=== PATIENT | male | born 1940 ===

== ENCOUNTER 2017-03-19 20:51 | Inpatient (IN) | payer MEDICARE, MEDICAID ==
[2017-03-19] MEDS ORDERED: Sodium Chloride 0.9% 1,000 ML IV STA ×2 (21:10→22:48)
--- NOTE | 2017-03-19 21:11 | ED PDOC ---
HPI: General Adult Time Seen by Provider: 03/19/17 20:59 Chief Complaint (Nursing): Lower Extremity Problem/Injury Chief Complaint (Provider): foot pain History Per: Patient, EMS Additional Complaint(s): 76-year-old male presents via ambulance for evaluation of bilateral foot pain 3 days. Patient noticed redness and swelling to right foot in particular 2 days ago. He is unaware of any fever or chills. Patient denies any chest pain, shortness of breath or dyspnea on exertion. Past Medical History Reviewed: Historical Data, Nursing Documentation, Vital Signs Vital Signs: Last Vital Signs Temp 100.8 F H 03/19/17 20:52 Pulse 78 03/19/17 20:52 Resp 16 03/19/17 20:52 BP 150/69 03/19/17 20:52 Pulse Ox 97 03/19/17 23:29 - Medical History PMH: Asthma, Atrial Fibrillation, Back Problems, CAD, CHF, COPD, HTN - Surgical History Other surgeries: partial finger amputation right hand - Family History Family History: States: No Known Family Hx - Living Arrangements Living Arrangements: With Family - Social History Current smoker - smoking cessation education provided: No Alcohol: Social Drugs: Denies - Home Medications Home Medications: Ambulatory Orders Medication Instructions Recorded Albuterol HFA [Ventolin HFA 90 2 puff IH [id number] PRN #0 puff 02/28/16 mcg/actuation (8 g)] Methylprednisolone [Medrol Dose 4 mg PO DAILY #21 mg 02/28/16 Pack (21 tabs)] - Allergies Allergies/Adverse Reactions: Allergies Allergy/AdvReac Type Severity Reaction Status Date / Time No Known Allergies Allergy Verified 02/27/16 19:20 Review of Systems ROS Statement: Except As Marked, All Systems Reviewed And Found Negative Constitutional: Negative for: Fever, Chills Cardiovascular: Negative for: Chest Pain Respiratory: Negative for: Cough Gastrointestinal: Negative for: Nausea, Vomiting Musculoskeletal: Positive for: Foot Pain Neurological: Negative for: Headache, Dizziness Physical Exam - Reviewed Nursing Documentation Reviewed: Yes Vital Signs Reviewed: Yes - Physical Exam Appears: Positive for: Well, Non-toxic, No Acute Distress Skin: Negative for: Pallor, Rash Eye Exam: Positive for: Normal appearance, EOMI, PERRL Cardiovascular/Chest: Positive for: Regular Rate, Rhythm Respiratory: Positive for: Normal Breath Sounds. Negative for: Wheezing, Respiratory Distress Extremity: Positive for: Other (Cellulitis noted to dorsal aspect of the right foot, minimal tenderness to palpation, no pedal edema noted bilaterally, no calf swelling or tenderness bilaterally, slight warmth and erythema noted to left foot as well.). Negative for: Calf Tenderness Neurologic/Psych: Positive for: Alert, Oriented - Laboratory Results Result Diagrams: 03/19/17 22:07 03/19/17 22:07 - ECG Interpretation Of ECG: A. fib at 67 bpm, reviewed by PA and ED attending. O2 Sat by Pulse Oximetry: 97 Pulse Ox Interpretation: Normal - Other Rad CXR X-Ray: Interpreted by Me, Viewed By Me X-Ray Interpretation: no acute finding, no interval change Medical Decision Making Medical Decision Makin76 year old with foot pain. Temp upon arrival is 100.8 Plan: CBC CMP Blood culture VBG with lactate CXR EKG UA UDS BAL IVF PO motrin and tylenol K is low at 3.1, 40 meq oral ordered. Lactate 2.8, WBC 11.0, Temp 100.8, source of infection: right foot cellulitis. Patient meets sepsis criteria. Case was d/w Dr. Bates who agrees with admission. Call placed to [facility] [employer] [facility] consultant, Dr. Aguilar who will admit patient. Patient is aware of and agrees with admission. IV vancomycin and Zosyn started in ED. Disposition - Clinical Impression Clinical Impression: Cellulitis of foot, Sepsis - Disposition Disposition Time: 23:40 Condition: FAIR - Pt Status Changed To: Hospital Disposition Of: Inpatient - Admit Certification Admit to Inpatient:: After my assessment, the patient will require hospitalization for at least two midnights. This is because of the severity of symptoms shown, intensity of services needed, and/or the medical risk in this patient being treated as an outpatient. - POA Present On Arrival: None Results - Lab Results Lab Results: 03/19/17 03/19/17 03/19/17 22:07 22:07 22:05 WBC 11.0 H D RBC 4.15 L Hgb 13.0 Hct 39.7 MCV 95.7 H MCH 31.4 H MCHC 32.8 L RDW 13.7 Plt Count 153 MPV 9.6 Neut % (Auto) 86.3 H Lymph % (Auto) 4.9 L [place] % (Auto) 8.2 Eos % (Auto) 0.0 Baso % (Auto) 0.6 Neut # 9.5 H Lymph # 0.5 L [place] # 0.9 H Eos # 0.0 Baso # 0.1 Neutrophils % (Manual) 87 H Lymphocytes % (Manual) 5 L Monocytes % (Manual) 7 Basophils % (Manual) 1 Platelet Estimate Normal Polychromasia Slight Ovalocytes Slight pO2 60 H VBG pH 7.21 L VBG pCO2 53 VBG HCO3 19.0 VBG Total CO2 22.8 VBG O2 Sat (Calc) 91.8 H VBG Base Excess -7.1 L VBG Potassium > 20.0 H* Sodium 137 126.0 L Chloride 104 98.0 Glucose 191 H Lactate 2.8 H FiO2 21.0 Crit Value Called To Bhargav price Crit Value Called By Rt Crit Value Read Back Y Blood Gas Notified Time 2212 Potassium 3.1 L Carbon Dioxide 20 L Anion Gap 16 BUN 18 Creatinine 1.3 Est GFR ( Amer) > 60 Est GFR (Non-Af Amer) 54 Random Glucose 201 H Calcium 8.8 Total Bilirubin 1.2 AST 26 ALT 29 Alkaline Phosphatase 72 Troponin I 0.0400 NT-Pro-B Natriuret Pep 2680 H Total Protein 6.8 Albumin 3.8 Globulin 3.0 Albumin/Globulin Ratio 1.3 Venous Blood Potassium > 20.0 H* Alcohol, Quantitative < 10
[2017-03-19 22:10] LABS: BASO # 0.1 K/uL (0.0-0.2); BASO % 0.6 % (0.0-2.0); LYMPH # 0.5 K/uL (1.0-4.3); LYMPH % 4.9 % (20.0-40.0); MEAN CELL VOLUME 95.7 fl (80.0-94.0); MEAN CORPUSCULAR HEMOGLOBIN 31.4 pg (27.0-31.0); MEAN CORPUSCULAR HGB CONC 32.8 g/dL (33.0-37.0); MEAN PLATELET VOLUME 9.6 fl (7.2-11.7); MONO # 0.9 K/uL (0.0-0.8); MONO % 8.2 % (0.0-10.0); NEUT # 9.5 K/uL (1.8-7.0); NEUT % 86.3 % (50.0-75.0); PLATELET COUNT 153 K/uL (130-400); RBC 4.15 Mil/uL (4.40-5.90); RED CELL DISTRIBUTION WIDTH 13.7 % (11.5-14.5)
[2017-03-19 22:13] LABS: VENOUS BLOOD GAS BASE EXCESS -7.1 mmol/L (0.0-2.0); VENOUS BLOOD GAS PCO2 53 mmHg (40-60); VENOUS BLOOD GAS PO2 60 mm/Hg (30-55); VENOUS BLOOD PH 7.21 (7.32-7.43)
[2017-03-19 22:23] LABS: ALB/GLOB RATIO 1.3 (1.0-2.1); ALBUMIN 3.8 g/dL (3.5-5.0); ALT/SGPT 29 U/L (21-72); AST/SGOT 26 U/L (17-59); BLOOD UREA NITROGEN 18 mg/dl (9-20); CALCIUM 8.8 mg/dL (8.4-10.2); GFR AFRICAN-AMERICAN > 60; GFR NON-AFRICAN AMERICAN 54
[2017-03-19 22:34] LABS: B-TYPE NATRIURETIC PEPTIDE 2680 pg/ml (0-900)
[2017-03-19] MEDS ORDERED: Piperacillin/Tazobact 3.375 GM in Sodium Chloride 0.9% 100 ML IVPB STA (23:23)
[2017-03-19] MEDS ORDERED: Piperacillin/Tazobact 3.375 gm Inj IVPB ONE (23:26)
[2017-03-19] MEDS ORDERED: Vancomycin 1 g Inj ONE (23:27)
[2017-03-19 23:32] LABS: BASOPHIL 1 % (0-2); LYMPHOCYTE 5 % (20-50); MONOCYTE 7 % (0-10); NEUTROPHIL 87 % (42-75); TOTAL CELLS COUNTED 100
[2017-03-19 23:38] LABS: PLATELET ESTIMATE NORMAL (NORMAL)
[2017-03-19 23:40] LABS: OVALOCYTES SLIGHT; POLYCHROMIC SLIGHT
[2017-03-19] MEDS ORDERED: Potassium Chloride 20 mEq ER Tab PO STA (23:42)
[2017-03-19] MEDS ORDERED: Potassium Chloride 20 mEq ER Tab PO ONE (23:50)
[2017-03-20 03:34] LABS: VENOUS BLOOD GAS BASE EXCESS 2.6 mmol/L (0.0-2.0); VENOUS BLOOD GAS PCO2 41 mmHg (40-60); VENOUS BLOOD GAS PO2 68 mm/Hg (30-55); VENOUS BLOOD PH 7.43 (7.32-7.43)
[2017-03-20] MEDS ORDERED: Albuterol-Ipratrop 3 mg / 0.5 (3 ml) UD INH PRN (07:04)
[2017-03-20] MEDS: Sodium Chloride 0.9% 1,000 ML IV SCH ×2 (07:16→21:54)
--- NOTE | 2017-03-20 08:18 | RAD ---
HISTORY: clearance COMPARISON: No prior. FINDINGS: LUNGS: No active pulmonary disease. PLEURA: No significant pleural effusion identified, no pneumothorax apparent. CARDIOVASCULAR: Normal. Atherosclerotic aorta. OSSEOUS STRUCTURES: No significant abnormalities. VISUALIZED UPPER ABDOMEN: Normal. OTHER FINDINGS: None. IMPRESSION: No active disease.
[2017-03-20] MEDS ORDERED: Patient's Own Med (Methylprednisolone [Medrol Dose Pack (21 Tabs)] 4 MG) PO SCH (09:00)
[2017-03-20] MEDS ORDERED: Potassium Chloride 20 mEq ER Tab PO ONE (09:00)
[2017-03-20] MEDS: Piperacill/Tazo 3.375gm in Dex 3.375 GM/50 ML BAG IVPB SCH (09:00)
[2017-03-20] MEDS ORDERED: Pneumococcal 23-Valent Vaccine IM ONE (09:00)
--- NOTE | 2017-03-20 09:40 | CP.PCM.CON ---
History of Present Illness - History of Present Illness History of Present Illness: 76 y/o male admitted with cellulitis of both feet x 3 days Cardiology consult called for Hx of Atrial Fibrillation pt is on home meds but doesn't know what EKG: Atrial Fibrillation HR dropped to 30's but returned to 60's ? secondary to meds at home?? Troponin: neg BNP: 2680 Past Patient History - Infectious Disease Hx of Infectious Diseases: None - Past Medical History & Family History Past Medical History?: Yes - Past Social History Smoking Status: Light Smoker < 10 Cigarettes Daily - CARDIAC Hx Atrial Fibrillation: Yes Hx Congestive Heart Failure: Yes Hx Hypertension: Yes - PULMONARY Hx Asthma: Yes Hx Chronic Obstructive Pulmonary Disease (COPD): Yes - NEUROLOGICAL Hx Neurological Disorder: No - HEENT Hx HEENT Problems: No - RENAL Hx Chronic Kidney Disease: No - ENDOCRINE/METABOLIC Hx Diabetes Mellitus Type 2: Yes - HEMATOLOGICAL/ONCOLOGICAL Hx Blood Disorders: No Hx AIDS: No Hx Human Immunodeficiency Virus (HIV): No - INTEGUMENTARY Hx Dermatological Problems: No - MUSCULOSKELETAL/RHEUMATOLOGICAL Hx Musculoskeletal Disorders: No Hx Falls: No - GASTROINTESTINAL Hx Gastrointestinal Disorders: No - GENITOURINARY/GYNECOLOGICAL Hx Genitourinary Disorders: No - PSYCHIATRIC Hx Substance Use: Yes - SURGICAL HISTORY Hx Surgeries: Yes Other/Comment: 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, 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 - ANESTHESIA Hx Anesthesia: Yes Hx Anesthesia Reactions: No Hx Malignant Hyperthermia: No Has any member of the family had a problem w/ anesthesia?: No Meds Allergies/Adverse Reactions: Allergies Allergy/AdvReac Type Severity Reaction Status Date / Time No Known Allergies Allergy Verified 02/27/16 19:20 - Medications Medications: Current Medications Albuterol (Ventolin Hfa 90 Mcg/Actuation (8 G)) 2 puff IH RQ6 PRN PRN Reason: Cough Albuterol/Ipratropium (Duoneb 3 Mg/0.5 Mg (3 Ml) Ud) 3 ml INH RQ4 PRN PRN Reason: Shortness of Breath Enoxaparin Sodium (Lovenox) 40 mg SC DAILY [facility] PRN Reason: Protocol Home Med (Methylprednisolone [Medrol Dose Pack (21 Tabs)]) 4 mg PO DAILY [facility] Sodium Chloride (Sodium Chloride 0.9%) 1,000 mls @ 66 mls/hr IV .[id number] [facility] Stop: 03/21/17 07:08 Last Admin: 03/20/17 07:16 Dose: 66 mls/hr Vancomycin HCl 1 gm/ Sodium (Chloride) 250 mls @ 166.667 mls/hr IVPB Q12 [facility] Piperacillin Sod/Tazobactam Sod (Zosyn 3.375 Gm Iv Premix) 3.375 gm in 50 mls @ 50 mls/hr IVPB Q8 [facility] Physical Exam - Head Exam Head Exam: NORMAL INSPECTION - Eye Exam Eye Exam: Normal appearance Pupil Exam: NORMAL ACCOMODATION - ENT Exam ENT Exam: Normal Exam - Neck Exam Neck exam: Positive for: Normal Inspection - Respiratory Exam Respiratory Exam: NORMAL BREATHING PATTERN - Cardiovascular Exam Cardiovascular Exam: Irregular Rhythm Results - Vital Signs Recent Vital Signs: Last Vital Signs Temp 97.4 F L 03/20/17 08:08 Pulse 59 L 03/20/17 08:08 Resp 18 03/20/17 08:08 BP 97/58 L 03/20/17 08:08 Pulse Ox 98 03/20/17 08:08 - Labs Result Diagrams: 03/20/17 09:00 03/20/17 09:00 Labs: Laboratory Results - last 24 hr 03/20/17 03/20/17 03/20/17 01:38 03:32 05:49 pO2 68 H VBG pH 7.43 VBG pCO2 41 VBG HCO3 26.9 VBG Total CO2 28.5 H VBG O2 Sat (Calc) 95.9 H VBG Base Excess 2.6 H VBG Potassium 3.5 L Sodium 138.0 Chloride 104.0 Glucose 131 H Lactate 1.0 FiO2 21.0 POC Glucose (mg/dL) 134 H 134 H Venous Blood Potassium 3.5 L Assessment & Plan (1) Atrial fibrillation Assessment and Plan: Pt's HR appears to be controlled will continue to observe Status: Acute (2) Chronic atrial fibrillation Status: Acute
[2017-03-20 09:55] LABS: BASO % 0.5 % (0.0-2.0); EOS % 0.3 % (0.0-4.0); HEMOGLOBIN 12.6 g/dL (12.0-18.0); LYMPH # 1.6 K/uL (1.0-4.3); LYMPH % 19.1 % (20.0-40.0); MEAN CELL VOLUME 95.6 fl (80.0-94.0); MEAN CORPUSCULAR HEMOGLOBIN 31.7 pg (27.0-31.0); MEAN CORPUSCULAR HGB CONC 33.1 g/dL (33.0-37.0); MEAN PLATELET VOLUME 9.8 fl (7.2-11.7); MONO % 11.6 % (0.0-10.0); NEUT # 5.7 K/uL (1.8-7.0); NEUT % 68.5 % (50.0-75.0); RBC 3.96 Mil/uL (4.40-5.90); RED CELL DISTRIBUTION WIDTH 13.2 % (11.5-14.5); WHITE BLOOD COUNT 8.3 K/uL (4.8-10.8)
[2017-03-20 09:56] LABS: ALBUMIN 3.1 g/dL (3.5-5.0)
[2017-03-20 09:59] LABS: ALB/GLOB RATIO 0.9 (1.0-2.1)
[2017-03-20 10:00] LABS: CALCIUM 8.8 mg/dL (8.4-10.2)
[2017-03-20] MEDS: Enoxaparin 40 mg Syringe SC SCH (10:00)
--- NOTE | 2017-03-20 10:26 | CP.PCM.CON ---
History of Present Illness - History of Present Illness History of Present Illness: 76 year old male patient PMHx asthma, afib, CAD, CHF, COPD, HTN seen at bedside for b/l foot cellulitis + pain. Patient states his feet have been painful for the past 3 days. Patient states that he feels a burning sensation to both leg and uncomfortable swelling in his legs as well, R>L. Patient denies N/V/F/D/C/ SOB/CP. No other pedal complaints at this time. PMH: asthma, afib, back problems, CAD, CHF, COPD, HTN, hepatitis PSH: Partial finger amputations right hand x3 Meds: see meds list FH: unknown SH: etoh, +tobacco Review of Systems - Review of Systems All systems: reviewed and no additional remarkable complaints except (as per HPI ) Past Patient History - Infectious Disease Hx of Infectious Diseases: None - Past Medical History & Family History Past Medical History?: Yes - Past Social History Smoking Status: Light Smoker < 10 Cigarettes Daily - CARDIAC Hx Atrial Fibrillation: Yes Hx Congestive Heart Failure: Yes Hx Hypertension: Yes - PULMONARY Hx Asthma: Yes Hx Chronic Obstructive Pulmonary Disease (COPD): Yes - NEUROLOGICAL Hx Neurological Disorder: No - HEENT Hx HEENT Problems: No - RENAL Hx Chronic Kidney Disease: No - ENDOCRINE/METABOLIC Hx Diabetes Mellitus Type 2: Yes - HEMATOLOGICAL/ONCOLOGICAL Hx Blood Disorders: No Hx AIDS: No Hx Human Immunodeficiency Virus (HIV): No - INTEGUMENTARY Hx Dermatological Problems: No - MUSCULOSKELETAL/RHEUMATOLOGICAL Hx Musculoskeletal Disorders: No Hx Falls: No - GASTROINTESTINAL Hx Gastrointestinal Disorders: No - GENITOURINARY/GYNECOLOGICAL Hx Genitourinary Disorders: No - PSYCHIATRIC Hx Substance Use: Yes - SURGICAL HISTORY Hx Surgeries: Yes Other/Comment: 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, 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 - ANESTHESIA Hx Anesthesia: Yes Hx Anesthesia Reactions: No Hx Malignant Hyperthermia: No Has any member of the family had a problem w/ anesthesia?: No Meds Allergies/Adverse Reactions: Allergies Allergy/AdvReac Type Severity Reaction Status Date / Time No Known Allergies Allergy Verified 02/27/16 19:20 - Medications Medications: Current Medications Albuterol (Ventolin Hfa 90 Mcg/Actuation (8 G)) 2 puff IH RQ6 PRN PRN Reason: Cough Albuterol/Ipratropium (Duoneb 3 Mg/0.5 Mg (3 Ml) Ud) 3 ml INH RQ4 PRN PRN Reason: Shortness of Breath Enoxaparin Sodium (Lovenox) 40 mg SC DAILY [facility] PRN Reason: Protocol Home Med (Methylprednisolone [Medrol Dose Pack (21 Tabs)]) 4 mg PO DAILY [facility] Sodium Chloride (Sodium Chloride 0.9%) 1,000 mls @ 66 mls/hr IV .[id number] [facility] Stop: 03/21/17 07:08 Last Admin: 03/20/17 07:16 Dose: 66 mls/hr Vancomycin HCl 1 gm/ Sodium (Chloride) 250 mls @ 166.667 mls/hr IVPB Q12 [facility] Last Admin: 03/20/17 09:00 Dose: 166.667 mls/hr Piperacillin Sod/Tazobactam Sod (Zosyn 3.375 Gm Iv Premix) 3.375 gm in 50 mls @ 50 mls/hr IVPB Q8 [facility] Last Admin: 03/20/17 09:00 Dose: 50 mls/hr Physical Exam - Constitutional Appears: Well, Non-toxic, No Acute Distress - Extremities Exam Additional comments: Vasc: DP and PT pulses palpable. CFT <3 seconds to all digits. TG warm to warm. Edema noted to lower leg, R>L Neuro: Gross sensation diminished Derm: Erythema noted to b/l lower extremity. Ortho: Pain on palpation noted to b/l foot - Neurological Exam Neurological exam: Alert, Oriented x3 - Psychiatric Exam Psychiatric exam: Normal Affect, Normal Mood Results - Vital Signs Recent Vital Signs: Last Vital Signs Temp 97.4 F L 03/20/17 08:08 Pulse 59 L 03/20/17 08:08 Resp 18 03/20/17 08:08 BP 97/58 L 03/20/17 08:08 Pulse Ox 98 03/20/17 08:08 - Labs Result Diagrams: 03/20/17 09:00 03/20/17 09:00 Labs: Laboratory Results - last 24 hr 03/20/17 03/20/17 03/20/17 01:38 03:32 05:49 WBC RBC Hgb Hct MCV MCH MCHC RDW Plt Count MPV Neut % (Auto) Lymph % (Auto) [place] % (Auto) Eos % (Auto) Baso % (Auto) Neut # Lymph # [place] # Eos # Baso # pO2 68 H VBG pH 7.43 VBG pCO2 41 VBG HCO3 26.9 VBG Total CO2 28.5 H VBG O2 Sat (Calc) 95.9 H VBG Base Excess 2.6 H VBG Potassium 3.5 L Sodium 138.0 Chloride 104.0 Glucose 131 H Lactate 1.0 FiO2 21.0 Potassium Carbon Dioxide Anion Gap BUN Creatinine Est GFR ( Amer) Est GFR (Non-Af Amer) POC Glucose (mg/dL) 134 H 134 H Random Glucose Calcium Total Bilirubin AST ALT Alkaline Phosphatase Total Protein Albumin Globulin Albumin/Globulin Ratio Venous Blood Potassium 3.5 L Vancomycin Trough 03/20/17 03/20/17 03/20/17 09:00 09:00 09:00 WBC 8.3 RBC 3.96 L Hgb 12.6 Hct 37.9 MCV 95.6 H MCH 31.7 H MCHC 33.1 RDW 13.2 Plt Count 147 MPV 9.8 Neut % (Auto) 68.5 Lymph % (Auto) 19.1 L [place] % (Auto) 11.6 H Eos % (Auto) 0.3 Baso % (Auto) 0.5 Neut # 5.7 Lymph # 1.6 [place] # 1.0 H Eos # 0.0 Baso # 0.0 pO2 VBG pH VBG pCO2 VBG HCO3 VBG Total CO2 VBG O2 Sat (Calc) VBG Base Excess VBG Potassium Sodium 141 Chloride 105 Glucose Lactate FiO2 Potassium 3.8 Carbon Dioxide 28 Anion Gap 11 BUN 24 H Creatinine 1.6 H Est GFR ( Amer) 51 Est GFR (Non-Af Amer) 42 POC Glucose (mg/dL) Random Glucose 96 Calcium 8.8 Total Bilirubin 1.0 AST 24 ALT 25 Alkaline Phosphatase 66 Total Protein 6.6 Albumin 3.1 L Globulin 3.4 Albumin/Globulin Ratio 0.9 L Venous Blood Potassium Vancomycin Trough 9.5 Assessment & Plan - Assessment and Plan (Free Text) Assessment: 76 year old male with cellulitis + pain Plan: Patient examined and evaluated Discussed with attending, Dr. Jonas Charts, labs, vitals reviewed = afebrile, WBC WNL @ 8.3 f/u medicine recs Podiatry to continue to follow while in house - Date & Time Date: 03/20/17 Time: 10:00
--- NOTE | 2017-03-20 11:22 | CARD ---
APPROVED REPORT EKG Measurement Heart [id number] <Conclusion> Atrial fibrillation with slow ventricular response Abnormal ECG
--- NOTE | 2017-03-20 11:26 | CARD ---
APPROVED REPORT EKG Measurement Heart [id number] <Conclusion> Atrial fibrillation Abnormal ECG
[2017-03-20 18:31] LABS: BARBITURATES, UR NEGATIVE (NEGATIVE); BENZODIAZEPINES, UR POSITIVE (NEGATIVE); OPIATES, UR POSITIVE (NEGATIVE); PHENCYCLIDINE, UR NEGATIVE (NEGATIVE)
[2017-03-20 18:34] LABS: GRANULAR CAST 1 /lpf (0-1); URINE BILIRUBIN NEGATIVE (NEGATIVE); URINE BLOOD NEGATIVE (NEGATIVE); URINE CLARITY CLOUDY (Clear); URINE COLOR AMBER (YELLOW); URINE GLUCOSE (UA) NEG (Normal); URINE HYALINE CAST 0-2 /hpf (0-2); URINE LEUKOCYTE ESTERASE NEG Leu/uL (Negative); URINE NITRATE NEGATIVE (NEGATIVE); URINE PROTEIN 30 mg/dL (NEGATIVE)
--- NOTE | 2017-03-20 20:46 | CP.PCM.HP ---
Past Patient History - Infectious Disease Hx of Infectious Diseases: None - Past Medical History & Family History Past Medical History?: Yes - Past Social History Smoking Status: Light Smoker < 10 Cigarettes Daily - CARDIAC Hx Atrial Fibrillation: Yes Hx Congestive Heart Failure: Yes Hx Hypertension: Yes - PULMONARY Hx Asthma: Yes Hx Chronic Obstructive Pulmonary Disease (COPD): Yes - NEUROLOGICAL Hx Neurological Disorder: No - HEENT Hx HEENT Problems: No - RENAL Hx Chronic Kidney Disease: No - ENDOCRINE/METABOLIC Hx Diabetes Mellitus Type 2: Yes - HEMATOLOGICAL/ONCOLOGICAL Hx Blood Disorders: No Hx AIDS: No Hx Human Immunodeficiency Virus (HIV): No - INTEGUMENTARY Hx Dermatological Problems: No - MUSCULOSKELETAL/RHEUMATOLOGICAL Hx Musculoskeletal Disorders: No Hx Falls: No - GASTROINTESTINAL Hx Gastrointestinal Disorders: No - GENITOURINARY/GYNECOLOGICAL Hx Genitourinary Disorders: No - PSYCHIATRIC Hx Substance Use: Yes - SURGICAL HISTORY Hx Surgeries: Yes Other/Comment: 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, 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 - ANESTHESIA Hx Anesthesia: Yes Hx Anesthesia Reactions: No Hx Malignant Hyperthermia: No Has any member of the family had a problem w/ anesthesia?: No Meds Allergies/Adverse Reactions: Allergies Allergy/AdvReac Type Severity Reaction Status Date / Time No Known Allergies Allergy Verified 02/27/16 19:20 Results - Vital Signs Recent Vital Signs: Last Vital Signs Temp 97.5 F L 03/20/17 20:19 Pulse 41 L 03/20/17 20:19 Resp 19 03/20/17 20:19 BP 112/61 03/20/17 20:19 Pulse Ox 100 03/20/17 20:19 - Labs Result Diagrams: 03/20/17 09:00 03/20/17 09:00 Labs: Laboratory Results - last 24 hr 03/20/17 03/20/17 03/20/17 01:38 03:32 05:49 WBC RBC Hgb Hct MCV MCH MCHC RDW Plt Count MPV Neut % (Auto) Lymph % (Auto) [place] % (Auto) Eos % (Auto) Baso % (Auto) Neut # Lymph # [place] # Eos # Baso # pO2 68 H VBG pH 7.43 VBG pCO2 41 VBG HCO3 26.9 VBG Total CO2 28.5 H VBG O2 Sat (Calc) 95.9 H VBG Base Excess 2.6 H VBG Potassium 3.5 L Sodium 138.0 Chloride 104.0 Glucose 131 H Lactate 1.0 FiO2 21.0 Potassium Carbon Dioxide Anion Gap BUN Creatinine Est GFR ( Amer) Est GFR (Non-Af Amer) POC Glucose (mg/dL) 134 H 134 H Random Glucose Hemoglobin A1c Calcium Total Bilirubin AST ALT Alkaline Phosphatase Total Protein Albumin Globulin Albumin/Globulin Ratio Venous Blood Potassium 3.5 L Urine Color Urine Clarity Urine pH Ur Specific [place] Urine Protein Urine Glucose (UA) Urine Ketones Urine Blood Urine Nitrate Urine Bilirubin Urine Urobilinogen Ur Leukocyte Esterase Urine RBC (Auto) Urine Microscopic WBC Hyaline Casts Granular Casts (Auto) Vancomycin Trough Urine Opiates Screen Urine Methadone Screen Ur Barbiturates Screen Ur Phencyclidine Scrn Ur Amphetamines Screen U Benzodiazepines Scrn U Oth Cocaine Metabols U Cannabinoids Screen 03/20/17 03/20/17 03/20/17 09:00 09:00 09:00 WBC 8.3 RBC 3.96 L Hgb 12.6 Hct 37.9 MCV 95.6 H MCH 31.7 H MCHC 33.1 RDW 13.2 Plt Count 147 MPV 9.8 Neut % (Auto) 68.5 Lymph % (Auto) 19.1 L [place] % (Auto) 11.6 H Eos % (Auto) 0.3 Baso % (Auto) 0.5 Neut # 5.7 Lymph # 1.6 [place] # 1.0 H Eos # 0.0 Baso # 0.0 pO2 VBG pH VBG pCO2 VBG HCO3 VBG Total CO2 VBG O2 Sat (Calc) VBG Base Excess VBG Potassium Sodium 141 Chloride 105 Glucose Lactate FiO2 Potassium 3.8 Carbon Dioxide 28 Anion Gap 11 BUN 24 H Creatinine 1.6 H Est GFR ( Amer) 51 Est GFR (Non-Af Amer) 42 POC Glucose (mg/dL) Random Glucose 96 Hemoglobin A1c 5.9 Calcium 8.8 Total Bilirubin 1.0 AST 24 ALT 25 Alkaline Phosphatase 66 Total Protein 6.6 Albumin 3.1 L Globulin 3.4 Albumin/Globulin Ratio 0.9 L Venous Blood Potassium Urine Color Urine Clarity Urine pH Ur Specific [place] Urine Protein Urine Glucose (UA) Urine Ketones Urine Blood Urine Nitrate Urine Bilirubin Urine Urobilinogen Ur Leukocyte Esterase Urine RBC (Auto) Urine Microscopic WBC Hyaline Casts Granular Casts (Auto) Vancomycin Trough Urine Opiates Screen Urine Methadone Screen Ur Barbiturates Screen Ur Phencyclidine Scrn Ur Amphetamines Screen U Benzodiazepines Scrn U Oth Cocaine Metabols U Cannabinoids Screen 03/20/17 03/20/17 03/20/17 09:00 11:00 16:16 WBC RBC Hgb Hct MCV MCH MCHC RDW Plt Count MPV Neut % (Auto) Lymph % (Auto) [place] % (Auto) Eos % (Auto) Baso % (Auto) Neut # Lymph # [place] # Eos # Baso # pO2 VBG pH VBG pCO2 VBG HCO3 VBG Total CO2 VBG O2 Sat (Calc) VBG Base Excess VBG Potassium Sodium Chloride Glucose Lactate FiO2 Potassium Carbon Dioxide Anion Gap BUN Creatinine Est GFR ( Amer) Est GFR (Non-Af Amer) POC Glucose (mg/dL) 130 H 112 H Random Glucose Hemoglobin A1c Calcium Total Bilirubin AST ALT Alkaline Phosphatase Total Protein Albumin Globulin Albumin/Globulin Ratio Venous Blood Potassium Urine Color Urine Clarity Urine pH Ur Specific [place] Urine Protein Urine Glucose (UA) Urine Ketones Urine Blood Urine Nitrate Urine Bilirubin Urine Urobilinogen Ur Leukocyte Esterase Urine RBC (Auto) Urine Microscopic WBC Hyaline Casts Granular Casts (Auto) Vancomycin Trough 9.5 Urine Opiates Screen Urine Methadone Screen Ur Barbiturates Screen Ur Phencyclidine Scrn Ur Amphetamines Screen U Benzodiazepines Scrn U Oth Cocaine Metabols U Cannabinoids Screen 03/20/17 03/20/17 17:41 17:41 WBC RBC Hgb Hct MCV MCH MCHC RDW Plt Count MPV Neut % (Auto) Lymph % (Auto) [place] % (Auto) Eos % (Auto) Baso % (Auto) Neut # Lymph # [place] # Eos # Baso # pO2 VBG pH VBG pCO2 VBG HCO3 VBG Total CO2 VBG O2 Sat (Calc) VBG Base Excess VBG Potassium Sodium Chloride Glucose Lactate FiO2 Potassium Carbon Dioxide Anion Gap BUN Creatinine Est GFR ( Amer) Est GFR (Non-Af Amer) POC Glucose (mg/dL) Random Glucose Hemoglobin A1c Calcium Total Bilirubin AST ALT Alkaline Phosphatase Total Protein Albumin Globulin Albumin/Globulin Ratio Venous Blood Potassium Urine Color [place] Urine Clarity Cloudy Urine pH 5.0 Ur Specific [place] 1.029 Urine Protein 30 Urine Glucose (UA) Neg Urine Ketones Negative Urine Blood Negative Urine Nitrate Negative Urine Bilirubin Negative Urine Urobilinogen 2.0 Ur Leukocyte Esterase Neg Urine RBC (Auto) 4 H Urine Microscopic WBC 4 Hyaline Casts 0-2 Granular Casts (Auto) 1 Vancomycin Trough Urine Opiates Screen Positive H Urine Methadone Screen Negative Ur Barbiturates Screen Negative Ur Phencyclidine Scrn Negative Ur Amphetamines Screen Negative U Benzodiazepines Scrn Positive H U Oth Cocaine Metabols Negative U Cannabinoids Screen Negative
[2017-03-20] MEDS ORDERED: Fluticasone-Salmeterol 500-50mcg Diskus IH SCH (21:00)
[2017-03-21] MEDS: Albuterol-Ipratrop 3 mg / 0.5 (3 ml) UD INH SCH ×4 (01:01→19:37)
[2017-03-21] MEDS: Piperacill/Tazo 3.375gm in Dex 3.375 GM/50 ML BAG IVPB SCH ×3 (01:10→16:59)
[2017-03-21 06:14] LABS: MEAN CELL VOLUME 95.9 fl (80.0-94.0); MEAN CORPUSCULAR HGB CONC 33.4 g/dL (33.0-37.0); RBC 3.74 Mil/uL (4.40-5.90); RED CELL DISTRIBUTION WIDTH 13.7 % (11.5-14.5); WHITE BLOOD COUNT 6.7 K/uL (4.8-10.8)
[2017-03-21 06:25] LABS: ALB/GLOB RATIO 1.1 (1.0-2.1); ALT/SGPT 22 U/L (21-72); AST/SGOT 22 U/L (17-59); BLOOD UREA NITROGEN 22 mg/dl (9-20); CALCIUM 8.8 mg/dL (8.4-10.2); GFR AFRICAN-AMERICAN > 60; GFR NON-AFRICAN AMERICAN 54
[2017-03-21] MEDS: Albuterol HFA 90 mcg/actuation (8 g) IH PRN ×2 (09:16→21:32)
[2017-03-21] MEDS: Enoxaparin 40 mg Syringe SC SCH (09:16)
--- NOTE | 2017-03-21 11:30 | CP.PCM.PN ---
Subjective - Date & Time of Evaluation Date of Evaluation: 03/21/17 Time of Evaluation: 07:00 - Subjective Subjective: 76 year old male patient PMHx asthma, afib, CAD, CHF, COPD, HTN seen at bedside for b/l foot cellulitis + pain. Patient seen resting in bed comfortably, AAOx3 and NAD. Patient was using a nebulizer at the time of visit. Patient states the pain to his legs b/l has decreased. Patient denies any acute events overnight. Patient denies N/V/F/D/C/SOB/CP. No other pedal complaints at this time. Objective - Vital Signs/Intake and Output Vital Signs (last 24 hours): Temp Pulse Resp BP Pulse Ox 97.7 F 50 L 18 159/71 H 99 03/21/17 08:00 03/21/17 08:00 03/21/17 08:00 03/21/17 08:00 03/21/17 08:00 - Medications Medications: Current Medications Albuterol (Ventolin Hfa 90 Mcg/Actuation (8 G)) 2 puff IH RQ6 PRN PRN Reason: Cough Last Admin: 03/21/17 09:16 Dose: 2 puff Albuterol/Ipratropium (Duoneb 3 Mg/0.5 Mg (3 Ml) Ud) 3 ml INH RQ4 PRN PRN Reason: Shortness of Breath Albuterol/Ipratropium (Duoneb 3 Mg/0.5 Mg (3 Ml) Ud) 3 ml INH RQ6 [facility] Last Admin: 03/21/17 07:58 Dose: 3 ml Alprazolam (Xanax) 0.5 mg PO BID [facility] Last Admin: 03/21/17 09:13 Dose: 0.5 mg Atorvastatin Calcium (Lipitor) 40 mg PO HS [facility] Last Admin: 03/20/17 21:52 Dose: 40 mg Enoxaparin Sodium (Lovenox) 40 mg SC DAILY [facility]UJA PRN Reason: Protocol Last Admin: 03/21/17 09:16 Dose: 40 mg Home Med (Methylprednisolone [Medrol Dose Pack (21 Tabs)]) 4 mg PO DAILY [facility] Piperacillin Sod/Tazobactam Sod (Zosyn 3.375 Gm Iv Premix) 3.375 gm in 50 mls @ 50 mls/hr IVPB Q8 [facility] Last Admin: 03/21/17 09:13 Dose: 50 mls/hr Nicotine (Nicoderm Cq) 1 patch TD DAILY [facility] Prednisone (Prednisone Oral Soln) 4 mg PO DAILY [facility] Fluticasone/Salmeterol (Advair Diskus 500/50) 1 puff IH Q12 [facility] Tiotropium [place] (Spiriva) 18 mcg INH DAILY [facility] - Labs Labs: 03/21/17 05:30 03/21/17 05:30 - Constitutional Appears: Well, Non-toxic, No Acute Distress - Extremities Exam Additional comments: Vasc: DP and PT pulses palpable. CFT <3 seconds to all digits. TG warm to warm. Edema noted to lower leg, R>L Neuro: Gross sensation diminished Derm: Erythema noted to b/l lower extremity, decreased. Ortho: No pain on palpation noted to b/l foot - Neurological Exam Neurological Exam: Alert, Awake, Oriented x3 - Psychiatric Exam Psychiatric exam: Normal Affect, Normal Mood Assessment and Plan - Assessment and Plan (Free Text) Assessment: 76 year old male with cellulitis + pain, resolving Plan: Patient examined and evaluated Discussed with attending, Dr. Jonas Charts, labs, vitals reviewed = afebrile, WBC WNL @ 6.7 Continue with abx per medicine = Zosyn 3.375g IV F/U medicine recommendations, possible dc on PO keflex and PO diflucan for alleviation of tinea pedis to r/o tinea as source of infection - Recommend Lamisil topical to use in conjunction with diflucan Podiatry will continue to follow while in house
[2017-03-21] MEDS: predniSONE 5 mg/5 mL Oral Soln UD PO SCH (11:52)
[2017-03-21] MEDS: Tiotropium 18 mcg Cap For Inhalation INH SCH (11:53)
[2017-03-21] MEDS: Fluticasone-Salmeterol 500-50mcg Diskus IH SCH ×2 (12:58→21:26)
--- NOTE | 2017-03-21 15:59 | CARD ---
APPROVED REPORT EXAM: Two-dimensional and M-mode echocardiogram with Doppler and color Doppler. Other Information Quality : GoodRhythm : Atrial Fibrillation INDICATION Abnormal EKG/Arrhythmia Bradycardia 2D DIMENSIONS IVSd1.20 (0.7-1.1cm)LVDd4.91 (3.9-5.9cm) LVOT Diameter1.80 (1.8-2.4cm)PWd1.08 (0.7-1.1cm) IVSs1.67 (0.8-1.2cm)LVDs3.03 (2.5-4.0cm) FS (%) 38.3 %PWs1.35 (0.8-1.2cm) M-Mode DIMENSIONS Left Atrium (MM)4.38 (2.5-4.0cm)IVSd1.06 (0.7-1.1cm) Aortic Root3.94 (2.2-3.7cm)LVDd5.31 (4.0-5.6cm) Aortic Cusp Exc.2.19 (1.5-2.0cm)PWd1.13 (0.7-1.1cm) IVSs1.56 cmFS (%) 43 % LVDs3.03 (2.0-3.8cm)PWs1.78 cm Mitral Valve E/A ratio0.0 TDI E/Lateral E'0.0E/Medial E'0.0 Pulmonary Valve PV Peak Meywlhtw585.4cm/s Tricuspid Valve TR Peak [id number] [id number] Peak Gr.26mmHg [id number] LEFT VENTRICLE The left ventricle is normal size. There is normal left ventricular wall thickness. The left ventricular function is normal. The left ventricular ejection fraction is - 70%. There is normal LV segmental wall motion. The patient is in atrial fibrillation. No left ventricle thrombus noted on this study. There is no ventricular septal defect visualized. There is no left ventricular aneurysm. There is no mass noted in the left ventricle. RIGHT VENTRICLE The right ventricle is normal size. There is normal right ventricular wall thickness. The right ventricular systolic function is normal. ATRIA The left atrium is mildly dilated. There is no thrombus suspected in the left atrium. The right atrium is mildly dilated. The interatrial septum is intact with no evidence for an atrial septal defect. AORTIC VALVE The aortic valve is normal in structure and function. No aortic regurgitation is present. There is no aortic valvular stenosis. MITRAL VALVE The mitral valve is normal in structure and function. There is no evidence of mitral valve prolapse. There is no mitral valve stenosis. Mitral regurgitation is mild. TRICUSPID VALVE The tricuspid valve is normal in structure and function. There is mild tricuspid regurgitation. Right ventricular systolic pressure is estimated at 37 mmHg. There is no tricuspid valve prolapse or vegetation. There is no tricuspid valve stenosis. PULMONIC VALVE The pulmonary valve is normal in structure and function. There is no pulmonic valvular regurgitation. GREAT VESSELS The aortic root is normal in size. The IVC is normal in size and collapses >50% with inspiration. PERICARDIAL EFFUSION The pericardium appears normal. There is no pleural effusion. <Conclusion> The left ventricle is normal in size and wall thickness. The left ventricular function is normal. The left ventricular ejection fraction is - 70%. The left atrium and right atrium are mildly dilated. The mitral, aortic and tricuspid valves are normal. There is mild mitral regurgitation and mild tricuspid regurgitation.
--- NOTE | 2017-03-21 20:23 | CP.PCM.PN ---
Subjective - Date & Time of Evaluation Date of Evaluation: 03/21/17 Objective - Vital Signs/Intake and Output Vital Signs (last 24 hours): Temp Pulse Resp BP Pulse Ox 98.3 F 85 20 161/78 H 99 03/21/17 19:06 03/21/17 19:06 03/21/17 19:06 03/21/17 19:06 03/21/17 19:06 Intake and Output: 03/21/17 03/22/17 18:59 06:59 Intake Total 900 Balance 900 - Medications Medications: Current Medications Albuterol (Ventolin Hfa 90 Mcg/Actuation (8 G)) 2 puff IH RQ6 PRN PRN Reason: Cough Last Admin: 03/21/17 09:16 Dose: 2 puff Albuterol/Ipratropium (Duoneb 3 Mg/0.5 Mg (3 Ml) Ud) 3 ml INH RQ4 PRN PRN Reason: Shortness of Breath Albuterol/Ipratropium (Duoneb 3 Mg/0.5 Mg (3 Ml) Ud) 3 ml INH RQ6 ANU[facility] Last Admin: 03/21/17 19:37 Dose: 3 ml Alprazolam (Xanax) 0.5 mg PO BID [facility] Last Admin: 03/21/17 16:59 Dose: 0.5 mg Atorvastatin Calcium (Lipitor) 40 mg PO HS [facility] Last Admin: 03/20/17 21:52 Dose: 40 mg Enoxaparin Sodium (Lovenox) 40 mg SC DAILY [facility] PRN Reason: Protocol Last Admin: 03/21/17 09:16 Dose: 40 mg Home Med (Methylprednisolone [Medrol Dose Pack (21 Tabs)]) 4 mg PO DAILY [facility] Piperacillin Sod/Tazobactam Sod (Zosyn 3.375 Gm Iv Premix) 3.375 gm in 50 mls @ 50 mls/hr IVPB Q8 [facility] Last Admin: 03/21/17 16:59 Dose: 50 mls/hr Nicotine (Nicoderm Cq) 1 patch TD DAILY [facility] Last Admin: 03/21/17 11:50 Dose: 1 patch Prednisone (Prednisone Oral Soln) 4 mg PO DAILY [facility] Last Admin: 03/21/17 11:52 Dose: 4 mg Fluticasone/Salmeterol (Advair Diskus 500/50) 1 puff IH Q12 [facility] Last Admin: 03/21/17 12:58 Dose: Not Given Tiotropium [place] (Spiriva) 18 mcg INH DAILY [facility] Last Admin: 03/21/17 11:53 Dose: 18 mcg - Labs Labs: 03/21/17 05:30 03/21/17 05:30
[2017-03-22] MEDS: Piperacill/Tazo 3.375gm in Dex 3.375 GM/50 ML BAG IVPB SCH ×3 (00:13→16:13)
[2017-03-22] MEDS: Albuterol-Ipratrop 3 mg / 0.5 (3 ml) UD INH SCH ×4 (01:00→19:54)
[2017-03-22 06:39] LABS: BLOOD UREA NITROGEN 17 mg/dl (9-20); CALCIUM 8.8 mg/dL (8.4-10.2); GFR AFRICAN-AMERICAN > 60; GFR NON-AFRICAN AMERICAN 54
--- NOTE | 2017-03-22 07:18 | CP.PCM.PN ---
Subjective - Date & Time of Evaluation Date of Evaluation: 03/22/17 Time of Evaluation: 06:30 - Subjective Subjective: 76 year old male patient with PMHx asthma, afib, CAD, CHF, COPD, HTN seen at bedside for b/l foot cellulitis + pain. Patient seen resting in bed, AAOx3 and NAD. Patient reports increased pain to both legs, starting from his knees and traveling down to his feet. Patient states the pain worsened overnight and as a result has not been able to sleep well. Patient states that he has been given medicine but none of it is helping the pain in his feet today. Patient denies N/ V/F/D/C/SOB/CP. No other pedal complaints at this time. Objective - Vital Signs/Intake and Output Vital Signs (last 24 hours): Temp Pulse Resp BP Pulse Ox 98.5 F 59 L 19 164/80 H 98 03/22/17 04:57 03/22/17 04:57 03/22/17 04:57 03/22/17 04:57 03/22/17 04:57 - Medications Medications: Current Medications Albuterol (Ventolin Hfa 90 Mcg/Actuation (8 G)) 2 puff IH RQ6 PRN PRN Reason: Cough Last Admin: 03/21/17 21:32 Dose: 2 puff Albuterol/Ipratropium (Duoneb 3 Mg/0.5 Mg (3 Ml) Ud) 3 ml INH RQ4 PRN PRN Reason: Shortness of Breath Albuterol/Ipratropium (Duoneb 3 Mg/0.5 Mg (3 Ml) Ud) 3 ml INH RQ6 ANUJA Last Admin: 03/22/17 01:00 Dose: Not Given Alprazolam (Xanax) 0.5 mg PO BID [facility] Last Admin: 03/21/17 16:59 Dose: 0.5 mg Atorvastatin Calcium (Lipitor) 40 mg PO HS [facility] Last Admin: 03/21/17 21:25 Dose: 40 mg Enoxaparin Sodium (Lovenox) 40 mg SC DAILY [facility] PRN Reason: Protocol Last Admin: 03/21/17 09:16 Dose: 40 mg Home Med (Methylprednisolone [Medrol Dose Pack (21 Tabs)]) 4 mg PO DAILY [facility] Piperacillin Sod/Tazobactam Sod (Zosyn 3.375 Gm Iv Premix) 3.375 gm in 50 mls @ 50 mls/hr IVPB Q8 [facility] Last Admin: 03/22/17 00:13 Dose: 50 mls/hr Nicotine (Nicoderm Cq) 1 patch TD DAILY [facility] Last Admin: 03/21/17 11:50 Dose: 1 patch Prednisone (Prednisone Oral Soln) 4 mg PO DAILY [facility] Last Admin: 03/21/17 11:52 Dose: 4 mg Fluticasone/Salmeterol (Advair Diskus 500/50) 1 puff IH Q12 [facility] Last Admin: 03/21/17 21:26 Dose: 1 puff Tiotropium [place] (Spiriva) 18 mcg INH DAILY [facility] Last Admin: 03/21/17 11:53 Dose: 18 mcg - Labs Labs: 03/21/17 05:30 03/22/17 05:00 - Constitutional Appears: Well, Non-toxic, No Acute Distress, Agitated - Extremities Exam Additional comments: Vasc: DP and PT pulses palpable. CFT <3 seconds to all digits. TG warm to warm. Edema noted to lower leg, R>L Neuro: Gross sensation diminished Derm: Erythema noted to plantar aspect of foot b/l with xerosis in a moccasin distribution, sparing the dorsum of foot. Ortho: Pain on palpation plantar aspect of foot b/l. - Neurological Exam Neurological Exam: Alert, Awake, Oriented x3 - Psychiatric Exam Psychiatric exam: Agitated Assessment and Plan - Assessment and Plan (Free Text) Assessment: 76 year old male with b/l LE painful cellulitis Plan: Patient examined and evaluated Discussed with attending, Dr. Jonas Charts, labs, vitals reviewed = afebrile, WBC WNL @ 6.7 on 03/21/17 Continue with abx per medicine = Zosyn 3.375g IV F/U medicine recommendations, possible dc on PO keflex and PO diflucan for alleviation of tinea pedis to r/o tinea as source of infection - Recommend Clotrimazole topical to use in conjunction with diflucan Clotrimazole 1% cream ordered for patient. Recommend Rx Clotrimazole 1% cream upon discharge. Podiatry will continue to follow while in house
[2017-03-22] MEDS: Fluticasone-Salmeterol 500-50mcg Diskus IH SCH ×3 (08:09→21:54)
[2017-03-22] MEDS: Enoxaparin 40 mg Syringe SC SCH (08:10)
[2017-03-22] MEDS: predniSONE 5 mg/5 mL Oral Soln UD PO SCH (08:11)
[2017-03-22] MEDS: Tiotropium 18 mcg Cap For Inhalation INH SCH (08:14)
[2017-03-22] MEDS ORDERED: COLCHICINE 0.6 MG CAPSULE PO ONE (09:21)
[2017-03-22 10:20] LABS: BASO # 0.1 K/uL (0.0-0.2); EOS % 0.5 % (0.0-4.0); LYMPH # 1.2 K/uL (1.0-4.3); LYMPH % 14.8 % (20.0-40.0); MEAN CELL VOLUME 95.1 fl (80.0-94.0); MEAN CORPUSCULAR HEMOGLOBIN 32.4 pg (27.0-31.0); MEAN CORPUSCULAR HGB CONC 34.1 g/dL (33.0-37.0); MONO # 0.6 K/uL (0.0-0.8); MONO % 7.6 % (0.0-10.0); NEUT % 76.1 % (50.0-75.0); RBC 3.7 Mil/uL (4.40-5.90); RED CELL DISTRIBUTION WIDTH 13.7 % (11.5-14.5); WHITE BLOOD COUNT 7.8 K/uL (4.8-10.8)
--- NOTE | 2017-03-22 14:19 | CP.PCM.PCO ---
Assessment and Plan - Assessment and Plan (Free Text) Assessment: 76 yr old M with pmhx CHF,CAD, Copd, htn, Afib, bradycardia admitted with LE Cellulitis, Afib w/ periods of bradycardia As per , may start anticoagulation with lovenox and continue on Pradaxa outpatient started on Lovenox 80 mg sc q12 for AF above discussed with
[2017-03-22] MEDS: Oxycodone/Acetaminophen 5/325 mg Tab PO PRN ×2 (17:23→22:01)
[2017-03-22 19:51] LABS: INR 1.3 (0.9-1.2); PROTHROMBIN TIME 14.5 Seconds (9.8-13.1)
[2017-03-22] MEDS: Enoxaparin 80 mg Syringe SC SCH (21:55)
--- NOTE | 2017-03-22 23:15 | CP.PCM.PN ---
Subjective - Date & Time of Evaluation Date of Evaluation: 03/22/17 - Subjective Subjective: b\l great toe pain takes percocet at home for pain in feet. still in afib Objective - Vital Signs/Intake and Output Vital Signs (last 24 hours): Temp Pulse Resp BP Pulse Ox 98.6 F 49 L 20 164/74 H 98 03/22/17 19:12 03/22/17 19:12 03/22/17 19:12 03/22/17 19:12 03/22/17 19:12 - Medications Medications: Current Medications Albuterol (Ventolin Hfa 90 Mcg/Actuation (8 G)) 2 puff IH RQ6 PRN PRN Reason: Cough Last Admin: 03/21/17 21:32 Dose: 2 puff Albuterol/Ipratropium (Duoneb 3 Mg/0.5 Mg (3 Ml) Ud) 3 ml INH RQ4 PRN PRN Reason: Shortness of Breath Albuterol/Ipratropium (Duoneb 3 Mg/0.5 Mg (3 Ml) Ud) 3 ml INH RQ6 [facility] Last Admin: 03/22/17 19:54 Dose: 3 ml Alprazolam (Xanax) 0.5 mg PO BID [facility] Last Admin: 03/22/17 16:12 Dose: 0.5 mg Atorvastatin Calcium (Lipitor) 40 mg PO HS [facility] Last Admin: 03/22/17 21:55 Dose: 40 mg Clotrimazole (Lotrimin 1% Cream) 1 applic TOP BID [facility] Last Admin: 03/22/17 16:15 Dose: 1 applic Enoxaparin Sodium (Lovenox) 40 mg SC DAILY [facility] PRN Reason: Protocol Last Admin: 03/22/17 08:10 Dose: 40 mg Enoxaparin Sodium (Lovenox) 80 mg SC Q12 [facility] PRN Reason: Protocol Last Admin: 03/22/17 21:55 Dose: 80 mg Piperacillin Sod/Tazobactam Sod (Zosyn 3.375 Gm Iv Premix) 3.375 gm in 50 mls @ 50 mls/hr IVPB Q8 [facility] Last Admin: 03/22/17 16:13 Dose: 50 mls/hr Nicotine (Nicoderm Cq) 1 patch TD DAILY [facility] Last Admin: 03/22/17 08:11 Dose: 1 patch Oxycodone/Acetaminophen (Percocet 5/325 Mg Tab) 1 tab PO Q6 PRN PRN Reason: Pain, moderate (4-7) Stop: 03/25/17 17:03 Last Admin: 03/22/17 22:01 Dose: 1 tab Prednisone (Prednisone Oral Soln) 4 mg PO DAILY [facility] Last Admin: 03/22/17 08:11 Dose: 4 mg Fluticasone/Salmeterol (Advair Diskus 500/50) 1 puff IH Q12 [facility] Last Admin: 03/22/17 21:54 Dose: 1 puff Tiotropium [place] (Spiriva) 18 mcg INH DAILY [facility] Last Admin: 03/22/17 08:14 Dose: 18 mcg Valsartan (Diovan) 160 mg PO DAILY [facility] Last Admin: 03/22/17 09:55 Dose: 160 mg - Labs Labs: 03/22/17 10:13 03/22/17 05:00 PT 14.5 Seconds (9.8-13.1) H 03/22/17 19:00 INR 1.3 (0.9-1.2) H 03/22/17 19:00
[2017-03-23] MEDS: Piperacill/Tazo 3.375gm in Dex 3.375 GM/50 ML BAG IVPB SCH ×3 (00:37→10:20)
[2017-03-23] MEDS: Albuterol-Ipratrop 3 mg / 0.5 (3 ml) UD INH SCH ×3 (01:55→13:34)
[2017-03-23 05:30] VITALS: RESP 20
[2017-03-23] MEDS ORDERED: Oxycodone/Acetaminophen 5/325 mg Tab ONE (05:35)
--- NOTE | 2017-03-23 07:51 | CP.PCM.PN ---
Subjective - Date & Time of Evaluation Date of Evaluation: 03/23/17 Time of Evaluation: 07:00 - Subjective Subjective: 76 year old male patient with PMHx asthma, afib, CAD, CHF, COPD, HTN seen at bedside for b/l foot cellulitis + pain. Patient seen resting in bed, AAOx3 but agitated. Patient reports increased pain to both legs, starting from his knees and traveling down to his feet. Patient states he is unable to put on his socks because his feet are extremely sensitive and painful. Patient states that he has been given medicine but none of it is helping the pain in his feet today. Patient denies N/V/F/D/C/SOB/CP. No other pedal complaints at this time. Objective - Vital Signs/Intake and Output Vital Signs (last 24 hours): Temp Pulse Resp BP Pulse Ox 98.5 F 50 L 20 181/91 H 97 03/23/17 05:15 03/23/17 05:15 03/23/17 05:15 03/23/17 05:15 03/23/17 05:15 - Medications Medications: Current Medications Albuterol (Ventolin Hfa 90 Mcg/Actuation (8 G)) 2 puff IH RQ6 PRN PRN Reason: Cough Last Admin: 03/21/17 21:32 Dose: 2 puff Albuterol/Ipratropium (Duoneb 3 Mg/0.5 Mg (3 Ml) Ud) 3 ml INH RQ4 PRN PRN Reason: Shortness of Breath Albuterol/Ipratropium (Duoneb 3 Mg/0.5 Mg (3 Ml) Ud) 3 ml INH RQ6 [facility] Last Admin: 03/23/17 01:55 Dose: Not Given Alprazolam (Xanax) 0.5 mg PO BID [facility] Last Admin: 03/22/17 16:12 Dose: 0.5 mg Atorvastatin Calcium (Lipitor) 40 mg PO HS [facility] Last Admin: 03/22/17 21:55 Dose: 40 mg Clotrimazole (Lotrimin 1% Cream) 1 applic TOP BID [facility] Last Admin: 03/22/17 16:15 Dose: 1 applic Enoxaparin Sodium (Lovenox) 40 mg SC DAILY [facility] PRN Reason: Protocol Last Admin: 03/22/17 08:10 Dose: 40 mg Enoxaparin Sodium (Lovenox) 80 mg SC Q12 [facility] PRN Reason: Protocol Last Admin: 03/22/17 21:55 Dose: 80 mg Piperacillin Sod/Tazobactam Sod (Zosyn 3.375 Gm Iv Premix) 3.375 gm in 50 mls @ 50 mls/hr IVPB Q8 [facility] Last Admin: 03/23/17 00:37 Dose: 50 mls/hr Nicotine (Nicoderm Cq) 1 patch TD DAILY [facility] Last Admin: 03/22/17 08:11 Dose: 1 patch Oxycodone/Acetaminophen (Percocet 5/325 Mg Tab) 1 tab PO Q6 PRN PRN Reason: Pain, moderate (4-7) Stop: 03/25/17 17:03 Last Admin: 03/22/17 22:01 Dose: 1 tab Prednisone (Prednisone Oral Soln) 4 mg PO DAILY [facility] Last Admin: 03/22/17 08:11 Dose: 4 mg Fluticasone/Salmeterol (Advair Diskus 500/50) 1 puff IH Q12 [facility] Last Admin: 03/22/17 21:54 Dose: 1 puff Tiotropium [place] (Spiriva) 18 mcg INH DAILY [facility] Last Admin: 03/22/17 08:14 Dose: 18 mcg Valsartan (Diovan) 160 mg PO DAILY [facility] Last Admin: 03/22/17 09:55 Dose: 160 mg - Labs Labs: 03/22/17 10:13 03/22/17 05:00 PT 14.5 Seconds (9.8-13.1) H 03/22/17 19:00 INR 1.3 (0.9-1.2) H 03/22/17 19:00 - Constitutional Appears: Well, Non-toxic, Agitated - Extremities Exam Additional comments: Vasc: DP and PT pulses palpable. CFT <3 seconds to all digits. TG warm to warm. Edema noted to lower leg, R>L Neuro: Gross sensation diminished Derm: Erythema noted to plantar aspect of foot b/l with xerosis in a moccasin distribution, sparing the dorsum of foot. Ortho: Pain on palpation to entire foot b/l. - Neurological Exam Neurological Exam: Alert, Awake, Oriented x3 - Psychiatric Exam Psychiatric exam: Normal Affect, Normal Mood Assessment and Plan - Assessment and Plan (Free Text) Assessment: 76 year old male with b/l LE painful cellulitis Plan: Patient examined and evaluated Discussed with attending, Dr. Jonas Charts, labs, vitals reviewed = afebrile, hypertensive @ 181/91 (trending upwards since admission) Continue with abx per medicine = Zosyn 3.375g IV F/U medicine recommendations, possible dc on PO keflex and PO diflucan for alleviation of tinea pedis to r/o tinea as source of infection - Recommend Clotrimazole topical to use in conjunction with diflucan Clotrimazole 1% cream ordered for patient to be put on foot b/l twice a day. Continue pain mgmt per medicine = Percocet Neuro consulted to evaluate b/l foot pain, increasing sensitivity to touch, r/o neuritis Bilateral foot XR ordered Podiatry will continue to follow while in house
--- NOTE | 2017-03-23 09:41 | CP.PCM.PN ---
Subjective - Date & Time of Evaluation Date of Evaluation: 03/23/17 Time of Evaluation: 09:20 - Subjective Subjective: This 76-year-old man was hospitalized with swelling and redness of his lower extremities. This consultation was requested because of atrial fibrillation. The patient denies knowing about any problem pertaining to his heart. He denies taking any cardiac medications. He admits to being a hypertensive for a long time and has been a heavy smoker for a very long time as well. He indicates that he has quit smoking approximately 3 weeks back. He denies any history of hypertension or symptoms of congestive cardiac failure. He has never experienced any chest pain and denies any history of myocardial infarction. Review of his chart reveals electrocardiograms and echocardiograms dating back to 2012 when he was in atrial fibrillation as well. There have been multiple echocardiograms over the course of preceding 4 years. They're review shows that the left ventricular systolic function was well preserved and there was no significant valvulopathy. Physical examination shows a elderly man who is comfortable at rest. Afebrile. With a heart rate off 78 bpm and irregularly irregular. His blood pressure was 140/74 mmHg. His jugular venous pressure was not elevated there was no edema or lower extremity the pulses were well felt. There were no carotid bruits. The apex was in the fifth space the first and second heart sound are normal. There was no murmur or gallop there were no rales. His abdomen was soft liver and spleen are not palpable. His lab data was reviewed. His leukocytosis at admission has resolved. His hemoglobin and hematocrit were within normal limits. His GFR is 54 mL per minute. His proBNP was elevated. His echocardiogram was reviewed. His left ventricular systolic function was well-preserved. The left atrial size was mildly increased. No significant valve disease was detected. The patient's heart rate is well controlled and he has no overt evidence of congestive cardiac failure. Given his age and history of hypertension patient should be on an oral anticoagulation to prevent systemic embolization. Objective - Vital Signs/Intake and Output Vital Signs (last 24 hours): Temp Pulse Resp BP Pulse Ox 97.8 F 64 20 162/63 H 99 03/23/17 08:36 03/23/17 08:36 03/23/17 08:36 03/23/17 08:36 03/23/17 08:36 - Medications Medications: Current Medications Albuterol (Ventolin Hfa 90 Mcg/Actuation (8 G)) 2 puff IH RQ6 PRN PRN Reason: Cough Last Admin: 03/21/17 21:32 Dose: 2 puff Albuterol/Ipratropium (Duoneb 3 Mg/0.5 Mg (3 Ml) Ud) 3 ml INH RQ4 PRN PRN Reason: Shortness of Breath Albuterol/Ipratropium (Duoneb 3 Mg/0.5 Mg (3 Ml) Ud) 3 ml INH RQ6 [facility] Last Admin: 03/23/17 07:55 Dose: 3 ml Alprazolam (Xanax) 0.5 mg PO BID [facility] Last Admin: 03/22/17 16:12 Dose: 0.5 mg Atorvastatin Calcium (Lipitor) 40 mg PO HS [facility] Last Admin: 03/22/17 21:55 Dose: 40 mg Clotrimazole (Lotrimin 1% Cream) 1 applic TOP BID [facility] Last Admin: 03/22/17 16:15 Dose: 1 applic Enoxaparin Sodium (Lovenox) 40 mg SC DAILY [facility] PRN Reason: Protocol Last Admin: 03/22/17 08:10 Dose: 40 mg Enoxaparin Sodium (Lovenox) 80 mg SC Q12 [facility] PRN Reason: Protocol Last Admin: 03/22/17 21:55 Dose: 80 mg Piperacillin Sod/Tazobactam Sod (Zosyn 3.375 Gm Iv Premix) 3.375 gm in 50 mls @ 50 mls/hr IVPB Q8 [facility] Last Admin: 03/23/17 00:37 Dose: 50 mls/hr Nicotine (Nicoderm Cq) 1 patch TD DAILY [facility] Last Admin: 03/22/17 08:11 Dose: 1 patch Oxycodone/Acetaminophen (Percocet 5/325 Mg Tab) 1 tab PO Q6 PRN PRN Reason: Pain, moderate (4-7) Stop: 03/25/17 17:03 Last Admin: 03/22/17 22:01 Dose: 1 tab Prednisone (Prednisone Oral Soln) 4 mg PO DAILY [facility] Last Admin: 03/22/17 08:11 Dose: 4 mg Fluticasone/Salmeterol (Advair Diskus 500/50) 1 puff IH Q12 [facility] Last Admin: 03/22/17 21:54 Dose: 1 puff Tiotropium [place] (Spiriva) 18 mcg INH DAILY [facility] Last Admin: 03/22/17 08:14 Dose: 18 mcg Valsartan (Diovan) 160 mg PO DAILY [facility] Last Admin: 03/22/17 09:55 Dose: 160 mg - Labs Labs: 03/22/17 10:13 03/22/17 05:00 PT 14.5 Seconds (9.8-13.1) H 03/22/17 19:00 INR 1.3 (0.9-1.2) H 03/22/17 19:00
[2017-03-23] MEDS: Fluticasone-Salmeterol 500-50mcg Diskus IH SCH (09:55)
[2017-03-23] MEDS: predniSONE 5 mg/5 mL Oral Soln UD PO SCH (09:58)
[2017-03-23] MEDS: Tiotropium 18 mcg Cap For Inhalation INH SCH (09:59)
[2017-03-23] MEDS: Enoxaparin 80 mg Syringe SC SCH (10:11)
[2017-03-23] MEDS: Oxycodone/Acetaminophen 5/325 mg Tab PO PRN (10:18)
[2017-03-23] MEDS: Enoxaparin 40 mg Syringe SC SCH (10:21)
[2017-03-23 12:34] VITALS: BP 127/63; PULSE 56; TEMP 98.3; O2SAT 98
--- NOTE | 2017-03-23 14:48 | RAD ---
PROCEDURE: Bilateral Feet Radiographs. HISTORY: increasing pain to left foot COMPARISON: None. FINDINGS: BONES: Right Foot: No fracture dislocation or suspicious lytic or blastic change. Left Foot: No fracture dislocation or suspicious lytic or blastic change. 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 The generated interphalangeal joint changes are appreciated diffusely which appear moderate in severity. 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 The generated interphalangeal joint changes are appreciated diffusely which appear moderate in severity. SOFT TISSUES: Right Foot: Moderate edema or callus is seen medial to the right 1st metatarsal phalangeal joint. Left Foot: Mild edema or callus is seen medial to the left 1st metatarsophalangeal joint. OTHER FINDINGS: None. 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 No acute fracture dislocation
== END 2017-03-23 16:00 | disposition home or self-care (01) | DRG 603 ==
LOC: H.ER 20:51 → H.ERHOLD 22:38 → H.TEL 03-20 02:41
PROVIDERS: ADMIT Internal Medicine; ATTEND Internal Medicine
PROC: 3E0234Z Introduction of Serum, Toxoid and Vaccine into Muscle, Percutaneous Approach (ICD-10-PCS; principal; 2017-03-20)
DX: L03.115 Cellulitis of right lower limb (principal); L03.116 Cellulitis of left lower limb; I48.2 Chronic atrial fibrillation; B35.3 Tinea pedis; E11.9 Type 2 diabetes mellitus without complications; I11.0 Hypertensive heart disease with heart failure; I50.9 Heart failure, unspecified; J44.9 Chronic obstructive pulmonary disease, unspecified; F17.210 Nicotine dependence, cigarettes, uncomplicated; I25.10 Atherosclerotic heart disease of native coronary artery without angina pectoris; J45.909 Unspecified asthma, uncomplicated; Z23 Encounter for immunization; Z79.01 Long term (current) use of anticoagulants; Z89.021 Acquired absence of right finger(s)

== ENCOUNTER 2018-01-10 14:24 | Emergency (ER) | payer MEDICARE, MEDICAID ==
[2018-01-10 14:38] VITALS: TEMP 97.8
[2018-01-10] MEDS ORDERED: Albuterol-Ipratrop 3 mg / 0.5 (3 ml) UD ONE (14:42)
[2018-01-10] MEDS ORDERED: Naloxone 0.4 mg/ml Inj (Adult) IV ONE (14:44)
[2018-01-10] MEDS ORDERED: Albuterol-Ipratrop 3 mg / 0.5 (3 ml) UD INH STA (14:44)
[2018-01-10] MEDS ORDERED: Naloxone 0.4 mg/ml Inj (Adult) ONE (15:00)
--- NOTE | 2018-01-10 15:16 | ED PDOC ---
HPI: Psych/Substance Abuse Time Seen by Provider: 01/10/18 14:42 Chief Complaint (Nursing): Substance Abuse Chief Complaint (Provider): Substance Abuse ED Caveat: Other (found unresponsive, reported overdose by EMS) History/Exam Limitations: other (reported OD ) Onset/Duration Of Symptoms: Mins (prior to arrival) Current Symptoms Are (Timing): Still Present Additional History Per: EMS Additional Complaint(s): 77 year old male presents to the emergency department via EMS after reportedly overdosing on heroin which he snorted prior to arrival. EMS states he was initially unresponsive with agonal breathing, and was given two doses of intranasal narcan, to which his respiratory rate improved, but he became uncooperative. Unable to obtain history from patient due to condition. Past medical history was obtained from previous charts. Past Medical History Reviewed: Historical Data, Nursing Documentation, Vital Signs Vital Signs: Last Vital Signs Temp 97.8 F 01/10/18 14:33 Pulse 77 01/10/18 15:03 Resp 19 01/10/18 15:03 BP 145/70 01/10/18 15:03 Pulse Ox 100 01/10/18 15:03 - Medical History PMH: Asthma, Atrial Fibrillation, Back Problems, CAD, CHF, COPD, HTN Denies: HIV, Chronic Kidney Disease - Family History Family History: States: Unknown Family Hx - Social History Drugs: Opiates - Home Medications Home Medications: Ambulatory Orders Medication Instructions Recorded Atorvastatin [Lipitor] 40 mg PO HS 03/20/17 Furosemide [Lasix] 20 mg PO DAILY 03/20/17 Ibuprofen [Motrin Tab] 800 mg PO TID PRN 03/20/17 Oxycodone HCl/Acetaminophen 1 tab PO Q6 PRN 03/20/17 [Endocet 10-325 mg Tablet] levETIRAcetam [Keppra] 500 mg PO Q12 03/20/17 Albuterol HFA [Ventolin HFA 90 2 puff IH RQ6 PRN #1 inhaler 03/23/17 mcg/actuation (8 g)] Alprazolam [Xanax] 0.5 mg PO TID #0 03/23/17 Atorvastatin [Lipitor] 40 mg PO HS #30 tab 03/23/17 Cephalexin [Keflex] 500 mg PO Q8 #21 capsule 03/23/17 Clotrimazole 1% Cream [Lotrimin 1% 1 applic TOP BID #1 03/23/17 CREAM] Dabigatran [Pradaxa] 75 mg PO BID #60 cap 03/23/17 Fluconazole [Diflucan] 100 mg PO DAILY #5 tab 03/23/17 Fluticasone/Salmeterol 500/50 1 puff IH Q12 puff 03/23/17 [Advair Diskus 500/50] Tiotropium [Spiriva] 18 mcg INH DAILY #30 cap 03/23/17 Valsartan [Diovan] 160 mg PO DAILY #30 tab 03/23/17 - Allergies Allergies/Adverse Reactions: Allergies Allergy/AdvReac Type Severity Reaction Status Date / Time No Known Allergies Allergy Verified 02/27/16 19:20 Review of Systems Review Of Systems: ROS cannot be obtained secondary to pt's inabilty to answer questions. Physical Exam - Reviewed Nursing Documentation Reviewed: Yes Vital Signs Reviewed: Yes - Physical Exam Appears: Positive for: In Acute Distress (yelling nonsensically, agitated) Head Exam: Positive for: ATRAUMATIC, NORMOCEPHALIC Skin: Positive for: Warm, Dry Eye Exam: Positive for: EOMI, PERRL (pupils 3mm bilaterally, minimally reactive to light) ENT: Positive for: Pharynx Is (clear), Other (pasty mucus membranes) Neck: Positive for: Painless ROM, Supple Cardiovascular/Chest: Positive for: Regular Rate, Rhythm. Negative for: Murmur Respiratory: Positive for: Rhonchi, Wheezing (expiratory) Gastrointestinal/Abdominal: Positive for: Soft. Negative for: Tenderness Back: Positive for: Normal Inspection. Negative for: Decreased ROM Extremity: Positive for: Normal ROM. Negative for: Pedal Edema, Deformity Lymphatic: Negative for: Adenopathy Neurologic/Psych: Positive for: Motor/Sensory Deficits (obtunded), Mood/Affect ( agitated), Other (able to move all extremities equally). Negative for: Oriented - Laboratory Results Result Diagrams: 01/10/18 15:20 01/10/18 15:20 - ECG O2 Sat by Pulse Oximetry: 100 (RA) Pulse Ox Interpretation: Normal - Critical Care Total Time (In Min): 30 Documented Critical Care: Time excludes all time spent performint seperately billable procedures Medical Decision Making Medical Decision Making: Time: 14:42 Initial Impression: Altered mental status post narcan with h/o heroin abuse, CHF. DDx includes but is not limited to: Overdose, TBI, electrolyte abnormality, bronchospasm, pneumonia, CHF, withdrawal (opiate or alcohol) Initial Plan: --CT head without contrast --Alcohol serum --BNP --CMP --Drug Screen --Magnesium --Phosphorus --Troponin I --ED Urine dipstick --CBC with differential --PT / PTT --Portable Chest XR --Glucose --Duoneb 6ml INH --Restraints (safety) Multiple bedside evaluations 30 min, 1 hour, and 1 and 1/2 hour after arrival. Pt agitated requiring Ativan in order to decrease agitation to complete workup. Also required soft restraints for safety. Fell asleep with stable vitals allowing for workup around 1 hour after arrival. 15:25 Chest XR FINDINGS: LUNGS: No active pulmonary disease. PLEURA: No significant pleural effusion identified, no pneumothorax apparent. CARDIOVASCULAR: Left subclavian access pacemaker with tips in the right atrium and right ventricle. Cardiomediastinal silhouette stably enlarged. OSSEOUS STRUCTURES: Unchanged. VISUALIZED UPPER ABDOMEN: Normal. OTHER FINDINGS: None. IMPRESSION: No active disease. 15:51 EKG Reading Ventricular paced rhythm Accession No. : [id number] Patient Name / ID : INEZ GARCIA / [id number] Exam Date : 01/10/2018 18:11:35 ( Approved ) Study Comment : Sex / Age : M / 77Y Creator : Gildardo Green MD Dictator : Gildardo Green MD Fire Control Officer : Care Analyst : Gildardo Green MD Approver2 : Report Date : 01/10/2018 18:52:51 My Comment : PROCEDURE: CT HEAD WITHOUT CONTRAST. HISTORY: Altered mental status. COMPARISON: 02/27/2016 TECHNIQUE: Axial computed tomography images were obtained through the head/brain without intravenous contrast. Coronal and sagittal reconstructed images. Radiation dose: Total exam DLP = 867.65 mGy-cm. This CT exam was performed using one or more of the following dose reduction techniques: Automated exposure control, adjustment of the mA and/or kV according to patient size, and/or use of iterative reconstruction technique. FINDINGS: HEMORRHAGE: No intracranial hemorrhage. BRAIN: No mass effect or edema. No atrophy or chronic microvascular ischemic changes. VENTRICLES: Unremarkable. No hydrocephalus. CALVARIUM: Unremarkable. PARANASAL SINUSES: Unremarkable as visualized. No significant inflammatory changes. MASTOID AIR CELLS: Unremarkable as visualized. No inflammatory changes. OTHER FINDINGS: None. IMPRESSION: No acute intracranial abnormalities. No significant findings to account for the clinical presentation. No significant interval change compared to the prior examination(s). Limitations of the current examination: Patient related motion induced artifact 1900 Pt sleeping comfortably but arousable. 2200 Pt sleeping but arousable. 2400 Pt woke up and ate but then went back to sleep, reporting to fatigued to get up. Endorsed to Dr Saldaña pending sobriety. Scribe Attestation: Documented by Tawana Fletcher, acting as a scribe for Miracle Bates MD Provider Scribe Attestation: All medical entries made by the Scribe were at my direction and personally dictated by me. I have reviewed the chart and agree that the record accurately reflects my personal performance of the history, physical exam, medical decision making, and the department course for this patient. I have also personally directed, reviewed, and agree with the discharge instructions and disposition. Disposition - Clinical Impression Clinical Impression: Heroin use - Disposition Referrals: [facility] [Outside] Disposition: Transfer of Care Disposition Time: 00:00 Condition: STABLE Instructions: Drug Abuse and Drug Addiction (DC), Drug Abuse Treatment Forms: [employer] (Wolof) Print Language: MONTSERRATIAN
--- NOTE | 2018-01-10 15:26 | RAD ---
HISTORY: sob COMPARISON: Chest radiograph dated 03/19/2017. FINDINGS: LUNGS: No active pulmonary disease. PLEURA: No significant pleural effusion identified, no pneumothorax apparent. CARDIOVASCULAR: Left subclavian access pacemaker with tips in the right atrium and right ventricle. Cardiomediastinal silhouette stably enlarged. OSSEOUS STRUCTURES: Unchanged. VISUALIZED UPPER ABDOMEN: Normal. OTHER FINDINGS: None. IMPRESSION: No active disease.
[2018-01-10 15:34] LABS: BASO # 0.1 K/uL (0.0-0.2); BASO % 1.3 % (0.0-2.0); EOS # 0.2 K/uL (0.0-0.7); EOS % 3.7 % (0.0-4.0); HEMOGLOBIN 14.9 g/dL (12.0-18.0); LYMPH # 1.8 K/uL (1.0-4.3); LYMPH % 27.7 % (20.0-40.0); MEAN CELL VOLUME 97.6 fl (80.0-94.0); MEAN CORPUSCULAR HEMOGLOBIN 32.8 pg (27.0-31.0); MEAN CORPUSCULAR HGB CONC 33.6 g/dL (33.0-37.0); MONO # 0.6 K/uL (0.0-0.8); MONO % 9.1 % (0.0-10.0); NEUT # 3.9 K/uL (1.8-7.0); NEUT % 58.2 % (50.0-75.0); NRBC % 0.2 % (0.0-0.0); RBC 4.53 Mil/uL (4.40-5.90); RED CELL DISTRIBUTION WIDTH 13.4 % (11.5-14.5); WHITE BLOOD COUNT 6.7 K/uL (4.8-10.8)
[2018-01-10 15:39] LABS: INR 1.1 (0.9-1.2); PARTIAL THROMBOPLASTIN TIME 18.1 Seconds (25.6-37.1); PROTHROMBIN TIME 12.2 Seconds (9.8-13.1)
[2018-01-10 15:41] LABS: ALB/GLOB RATIO 1.2 (1.0-2.1); ALBUMIN 4.1 g/dL (3.5-5.0); CALCIUM 9.4 mg/dL (8.4-10.2); GFR AFRICAN-AMERICAN 55; GFR NON-AFRICAN AMERICAN 46
[2018-01-10 15:53] LABS: B-TYPE NATRIURETIC PEPTIDE 2070 pg/ml (0-900)
[2018-01-10 16:04] LABS: ALT/SGPT 35 U/L (21-72); AST/SGOT 35 U/L (17-59); BLOOD UREA NITROGEN 26 mg/dl (9-20)
--- NOTE | 2018-01-10 18:54 | CT ---
PROCEDURE: CT HEAD WITHOUT CONTRAST. HISTORY: Altered mental status. COMPARISON: 02/27/2016 TECHNIQUE: Axial computed tomography images were obtained through the head/brain without intravenous contrast. Coronal and sagittal reconstructed images. Radiation dose: Total exam DLP = 867.65 mGy-cm. This CT exam was performed using one or more of the following dose reduction techniques: Automated exposure control, adjustment of the mA and/or kV according to patient size, and/or use of iterative reconstruction technique. FINDINGS: HEMORRHAGE: No intracranial hemorrhage. BRAIN: No mass effect or edema. No atrophy or chronic microvascular ischemic changes. VENTRICLES: Unremarkable. No hydrocephalus. CALVARIUM: Unremarkable. PARANASAL SINUSES: Unremarkable as visualized. No significant inflammatory changes. MASTOID AIR CELLS: Unremarkable as visualized. No inflammatory changes. OTHER FINDINGS: None. IMPRESSION: No acute intracranial abnormalities. No significant findings to account for the clinical presentation. No significant interval change compared to the prior examination(s). Limitations of the current examination: Patient related motion induced artifact
[2018-01-11 00:20] LABS: BARBITURATES, UR NEGATIVE (NEGATIVE); BENZODIAZEPINES, UR POSITIVE (NEGATIVE); OPIATES, UR POSITIVE (NEGATIVE); PHENCYCLIDINE, UR NEGATIVE (NEGATIVE)
--- NOTE | 2018-01-11 00:20 | ED PDOC ---
- Laboratory Results Result Diagrams: 01/10/18 15:20 01/10/18 15:20 - ECG O2 Sat by Pulse Oximetry: 100 (RA) Medical Decision Making Medical Decision Makin Patient signed out to this provider pending sobriety. Scribe Attestation: Documented by Esperanza Donato, acting as a scribe for Violet Saldaña MD. Provider Scribe Attestation: All medical record entries made by the Scribe were at my direction and personally dictated by me. I have reviewed the chart and agree that the record accurately reflects my personal performance of the history, physical exam, medical decision making, and the department course for this patient. I have also personally directed, reviewed, and agree with the discharge instructions and disposition. Disposition - Clinical Impression Clinical Impression: Heroin use - Disposition Referrals: [facility] [Outside] Condition: IMPROVED Instructions: Drug Abuse and Drug Addiction (DC), Drug Abuse Treatment Forms: [employer] (Italian) Print Language: PORTUGUESE
[2018-01-11 01:04] VITALS: BP 116/73; PULSE 82; RESP 20
--- NOTE | 2018-01-11 01:17 | ED PDOC ---
- Laboratory Results Result Diagrams: 01/10/18 15:20 01/10/18 15:20 - ECG O2 Sat by Pulse Oximetry: 98 Medical Decision Making Medical Decision Makin Patient signed out to this provider from Dr. Bates pending sobriety. 0100 Patient is awake, alert, oriented x3, and walking with a steady gait. Patient is stable for discharge home. Discussed need to cease substance abuse. Return precautions discussed. Scribe Attestation: Documented by Esperanza Donato, acting as a scribe for Violet Saldaña MD. Provider Scribe Attestation: All medical record entries made by the Scribe were at my direction and personally dictated by me. I have reviewed the chart and agree that the record accurately reflects my personal performance of the history, physical exam, medical decision making, and the department course for this patient. I have also personally directed, reviewed, and agree with the discharge instructions and disposition. Disposition Counseled Patient/Family Regarding: Studies Performed, Diagnosis, Need For Followup - Clinical Impression Clinical Impression: Heroin use - POA Present On Arrival: None - Disposition Referrals: [facility] [Outside] Disposition: Routine/Home Disposition Time: 01:00 Condition: IMPROVED Instructions: Drug Abuse and Drug Addiction (DC), Drug Abuse Treatment Forms: [employer] (Togolese) Print Language: MOHAWK
[2018-01-11 14:14] VITALS: O2SAT 100
== END 2018-01-11 01:06 | disposition home or self-care (01) ==
LOC: H.ER 14:24
DX: F11.10 Opioid abuse, uncomplicated (principal); J44.9 Chronic obstructive pulmonary disease, unspecified; I11.0 Hypertensive heart disease with heart failure; Z79.01 Long term (current) use of anticoagulants; I25.10 Atherosclerotic heart disease of native coronary artery without angina pectoris; F11.90 Opioid use, unspecified, uncomplicated
CPT/HCPCS: 70450; 71045; 80053; 82948; 83735; 83880; 84100; 84484; 85025; 85610; 85730; 96374; 99285; G0480; J2060

== ENCOUNTER 2018-08-27 14:30 | Inpatient (IN) | payer MEDICARE, MEDICAID ==
[2018-08-27 14:33] VITALS: BMI 30.2
[2018-08-27] MEDS ORDERED: Albuterol-Ipratrop 3 mg / 0.5 (3 ml) UD INH STA (14:58)
--- NOTE | 2018-08-27 15:29 | ED PDOC ---
HPI: Altered Mental Status Time Seen by Provider: 08/27/18 14:39 Chief Complaint (Nursing): Weakness/Neurological Deficit History Per: Senior Boiler Operator (Jamir [id number]) Additional Complaint(s): Hx of pacemaker, Hep C, drug abuse presenting with AMS, weakness. According to (Jamir ID [id number]), patient has not been eating since , has been using heroin and cocaine, has been lethargic, not even getting up to go to the bathroom and soiling himself in his pants. also states that 2 days ago he had vomiting and today had a small amount of vomiting as well. states he's also had a cough, no fevers. Patient A&O x 2 PMD: Dr. Diane Past Medical History Vital Signs: Last Vital Signs Temp 98.2 F 08/27/18 14:32 Pulse 55 L 08/27/18 14:32 Resp 16 08/27/18 14:32 BP 153/87 H 08/27/18 14:32 Pulse Ox 96 08/27/18 14:32 - Medical History PMH: Asthma, Atrial Fibrillation, Back Problems, CAD, CHF, COPD, HTN Denies: HIV, Chronic Kidney Disease - Family History Family History: States: Unknown Family Hx - Home Medications Home Medications: Ambulatory Orders Medication Instructions Recorded Atorvastatin [Lipitor] 40 mg PO HS 03/20/17 Furosemide [Lasix] 20 mg PO DAILY 03/20/17 Ibuprofen [Motrin Tab] 800 mg PO TID PRN 03/20/17 Oxycodone HCl/Acetaminophen 1 tab PO Q6 PRN 03/20/17 [Endocet 10-325 mg Tablet] levETIRAcetam [Keppra] 500 mg PO Q12 03/20/17 Albuterol HFA [Ventolin HFA 90 2 puff IH RQ6 PRN #1 inhaler 03/23/17 mcg/actuation (8 g)] Alprazolam [Xanax] 0.5 mg PO TID #0 03/23/17 Atorvastatin [Lipitor] 40 mg PO HS #30 tab 03/23/17 Cephalexin [Keflex] 500 mg PO Q8 #21 capsule 03/23/17 Clotrimazole 1% Cream [Lotrimin 1% 1 applic TOP BID #1 03/23/17 CREAM] Dabigatran [Pradaxa] 75 mg PO BID #60 cap 03/23/17 Fluconazole [Diflucan] 100 mg PO DAILY #5 tab 03/23/17 Fluticasone/Salmeterol 500/50 1 puff IH Q12 puff 03/23/17 [Advair Diskus 500/50] Tiotropium [Spiriva] 18 mcg INH DAILY #30 cap 03/23/17 Valsartan [Diovan] 160 mg PO DAILY #30 tab 03/23/17 - Allergies Allergies/Adverse Reactions: Allergies Allergy/AdvReac Type Severity Reaction Status Date / Time No Known Allergies Allergy Verified 02/27/16 19:20 Review of Systems Review Of Systems: ROS cannot be obtained secondary to pt's inabilty to answer questions. Physical Exam - Reviewed Nursing Documentation Reviewed: Yes Vital Signs Reviewed: Yes - Physical Exam Appears: Positive for: Non-toxic, No Acute Distress. Negative for: Well (Tired appearing) Head Exam: Positive for: NORMAL INSPECTION, NORMOCEPHALIC. Negative for: ATRAUMATIC (L sided forehead contusion, healing) Skin: Positive for: Normal Color, Warm, DRY Eye Exam: Positive for: Normal appearance (2mm bilaterally, minimally reactive) ENT: Positive for: Normal ENT Inspection Neck: Positive for: Normal, Painless ROM Cardiovascular/Chest: Positive for: Regular Rate, Rhythm Respiratory: Positive for: Wheezing Gastrointestinal/Abdominal: Positive for: Normal Exam, Soft. Negative for: Tenderness Back: Positive for: Normal Inspection. Negative for: L CVA Tenderness, R CVA Tenderness, Vertebral Tenderness Extremity: Positive for: Normal ROM, Other (healing brusies to L arm). Negative for: Tenderness Neurologic/Psych: Positive for: Alert, physician II-XII, Other (Speaking slowly). Ne gative for: Oriented (X 2 (thinks its April 2018)) - Laboratory Results Result Diagrams: 08/27/18 15:25 08/27/18 15:25 - ECG ECG Rhythm: Positive for: Venticular Paced Rate: 79 O2 Sat by Pulse Oximetry: 96 Pulse Ox Interpretation: Normal Medical Decision Making Medical Decision MakinPM A/P: Patient presenting with AMS --Vitals stable, patient tired appearing, mild lethargy, not hypoxic or br adypneic --Differnetial includes but not limited to: drug abuse, PNA, ICH, electrolyte imbalance, dehydratoin --Will get labs, CT head --Will hydrate, neb for wheezing 5PM --Patient has acute renal failure, likely secondary to dehydration --Will hydrate slowly given hx of CHF --Dr. Chand states to admit to hospitalist and transfer case on Tuesday --Dr. Arellano aware Disposition - Clinical Impression Clinical Impression: Acute renal failure, Altered mental status, Dehydration - Disposition Disposition Time: 17:00 Condition: FAIR
[2018-08-27] MEDS ORDERED: Sodium Chloride 0.9% 1,000 ML IV STA (15:43)
[2018-08-27 16:01] LABS: EOS % 0.1 % (0.0-4.0); HEMOGLOBIN 14.2 g/dL (12.0-18.0); LYMPH # 0.6 K/uL (1.0-4.3); LYMPH % 4.6 % (20.0-40.0); MEAN CELL VOLUME 99.7 fl (80.0-94.0); MEAN CORPUSCULAR HEMOGLOBIN 32.6 pg (27.0-31.0); MEAN CORPUSCULAR HGB CONC 32.7 g/dL (33.0-37.0); MEAN PLATELET VOLUME 10.2 fl (7.2-11.7); MONO # 0.6 K/uL (0.0-0.8); MONO % 4.7 % (0.0-10.0); NEUT # 11.7 K/uL (1.8-7.0); NEUT % 90.6 % (50.0-75.0); NRBC % 0.1 % (0.0-0.0); PLATELET COUNT 117 K/uL (130-400); RBC 4.35 Mil/uL (4.40-5.90); RED CELL DISTRIBUTION WIDTH 13.5 % (11.5-14.5)
[2018-08-27] MEDS ORDERED: Albuterol-Ipratrop 3 mg / 0.5 (3 ml) UD ONE (16:10)
--- NOTE | 2018-08-27 16:10 | CT ---
Date of service: 08/27/2018 PROCEDURE: CT HEAD WITHOUT CONTRAST. HISTORY: AMS COMPARISON: Comparison made with prior CT scan brain 01/10/2018.. TECHNIQUE: Axial computed tomography images were obtained through the head/brain without intravenous contrast. Radiation dose: Total exam DLP = 829.6 mGy-cm. This CT exam was performed using one or more of the following dose reduction techniques: Automated exposure control, adjustment of the mA and/or kV according to patient size, and/or use of iterative reconstruction technique. FINDINGS: HEMORRHAGE: No acute parenchymal, subarachnoid or extra-axial hemorrhage.. BRAIN: Mild chronic periventricular white matter ischemic changes seen extending peripherally into the deep and subcortical matter both cerebral hemispheres. Chronic appearing lacunar-type infarct changes both basal nuclei. Note that the possibility of a small hyperacute infarct cannot be excluded on this study. Moderate generalized volume loss. Vascular calcifications both carotid siphons and right vertebral artery. No obvious parenchymal nor extra-axial masses or collections seen on this noncontrast study. VENTRICLES: No obstructive hydrocephalus. CALVARIUM: No acute calvarial fractures. PARANASAL SINUSES: Minor mucosal thickening seen within the ethmoid air complex extending superiorly into the inferior margin of the frontal sinus. MASTOID AIR CELLS: There also appears to be partial opacifications of several inferior right-sided mastoid air cells. OTHER FINDINGS: Changes of left-sided cataract surgery again noted. IMPRESSION: No acute intracranial hemorrhage. 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 Moderate volume loss.
[2018-08-27 16:21] LABS: BLOOD UREA NITROGEN 96 mg/dl (9-20); CALCIUM 8.8 mg/dL (8.4-10.2); GFR NON-AFRICAN AMERICAN 17
[2018-08-27 16:23] LABS: ACETAMINOPHEN < 10.0 ug/ml (10.0-30.0); SALICYLATE < 1.0 mg/dl
[2018-08-27 16:37] LABS: BANDS 6 % (0-2); LYMPHOCYTE 5 % (20-50); MONOCYTE 5 % (0-10); NEUTROPHIL 82 % (42-75); PLATELET ESTIMATE SLIGHTLY DECREASED (NORMAL); REACTIVE LYMPHOCYTES 2 % (0-0); TOTAL CELLS COUNTED 100
--- NOTE | 2018-08-27 17:04 | RAD ---
Date of service: 08/27/2018 HISTORY: Cough, AMS COMPARISON: Comparison chest dated 01/10/2018. FINDINGS: LUNGS: Findings consistent with mild pulmonary venous congestive changes... PLEURA: No significant pleural effusion identified, no pneumothorax apparent. CARDIOVASCULAR: Minor aortic atherosclerotic calcification present. Cardiomegaly.. In situ bipolar pacemaker/defibrillator. OSSEOUS STRUCTURES: No significant abnormalities. VISUALIZED UPPER ABDOMEN: Normal. OTHER FINDINGS: None. IMPRESSION: Findings consistent with mild pulmonary venous congestion.
[2018-08-27 18:24] LABS: SQUAMOUS EPITHIAL 1 /hpf (0-5); URINE BILIRUBIN NEGATIVE (NEGATIVE); URINE CLARITY SLIGHTY-CLOUDY (Clear); URINE COLOR YELLOW (YELLOW); URINE GLUCOSE (UA) NEG (NEGATIVE); URINE LEUKOCYTE ESTERASE NEG Leu/uL (Negative); URINE PROTEIN 30 mg/dL (NEGATIVE); URINE UROBILINOGEN 0.2-1.0 mg/dL (0.2-1.0)
[2018-08-27 18:25] LABS: URINE BLOOD SMALL (NEGATIVE)
--- NOTE | 2018-08-27 18:29 | CP.PCM.HP ---
<HuangRamon - Last Filed: 08/27/18 19:15> History of Present Illness - History of Present Illness History of Present Illness: History per ED note, pt unable to provided information due to lethargy and not family at bedside. This is a 77 yo male patient with PMHx of pacemaker, Hep C, Afib, drug abuse presenting to the ED with AMS and weakness. According to patient has not been eating since , has been using heroin and cocaine, has been lethargic, not even getting up to go to the bathroom and soiling himself in his pants. also states that 2 days ago he had vomiting and today had a small amount of vomiting as well. states he's also had a cough, no fevers. PMD: Dr. 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 Meds: see jackie CONNOR SH: smoker >10 cig/day, + etoh and heroin/cocaine use, last use 5 days ago Present on Admission - Present on Admission Any Indicators Present on Admission: No Review of Systems - Review of Systems Systems not reviewed;Unavailable: Other (unable to obtain due to inability to answer questions) Past Patient History - Infectious Disease Hx of Infectious Diseases: None - Past Medical History & Family History Past Medical History?: Yes - Past Social History Smoking Status: Light Smoker < 10 Cigarettes Daily - CARDIAC Hx Atrial Fibrillation: Yes Hx Congestive Heart Failure: Yes Hx Hypertension: Yes - PULMONARY Hx Asthma: Yes Hx Chronic Obstructive Pulmonary Disease (COPD): Yes - NEUROLOGICAL Hx Neurological Disorder: No - HEENT Hx HEENT Problems: No - RENAL Hx Chronic Kidney Disease: No - ENDOCRINE/METABOLIC Hx Diabetes Mellitus Type 2: Yes - HEMATOLOGICAL/ONCOLOGICAL Hx Human Immunodeficiency Virus (HIV): No - INTEGUMENTARY Hx Dermatological Problems: No - MUSCULOSKELETAL/RHEUMATOLOGICAL Hx Musculoskeletal Disorders: No Hx Falls: No - GASTROINTESTINAL Hx Gastrointestinal Disorders: No - GENITOURINARY/GYNECOLOGICAL Hx Genitourinary Disorders: No - PSYCHIATRIC Hx Substance Use: Yes (heroine) - SURGICAL HISTORY Hx Surgeries: Yes Other/Comment: 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, 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 - ANESTHESIA Hx Anesthesia: Yes Hx Anesthesia Reactions: No Hx Malignant Hyperthermia: No Meds Allergies/Adverse Reactions: Allergies Allergy/AdvReac Type Severity Reaction Status Date / Time No Known Allergies Allergy Verified 02/27/16 19:20 Physical Exam - Constitutional Appears: No Acute Distress Additional comments: lethargic, arousable to voice, do not follow commands - Head Exam Head Exam: NORMAL INSPECTION - Eye Exam Eye Exam: EOMI, PERRL - Respiratory Exam Respiratory Exam: Clear to Auscultation Bilateral, NORMAL BREATHING PATTERN - Cardiovascular Exam Cardiovascular Exam: Bradycardia, REGULAR RHYTHM, +S1, +S2 - GI/Abdominal Exam GI & Abdominal Exam: Distended, Normal Bowel Sounds, Soft. absent: Tenderness - Extremities Exam Extremities exam: Negative for: pedal edema - Neurological Exam Additional comments: lethargic, arousable to voice, do not follow commands - Skin Skin Exam: Dry, Warm Additional comments: bruises on different size note on L ar - Additional Findings Additional findings: m Results - Vital Signs Recent Vital Signs: Last Vital Signs Temp 98.2 F 08/27/18 14:32 Pulse 79 08/27/18 18:19 Resp 16 08/27/18 14:32 BP 146/115 H 08/27/18 18:16 Pulse Ox 96 08/27/18 18:19 - Labs Result Diagrams: 08/27/18 15:25 08/27/18 15:25 Labs: Laboratory Results - last 24 hr 08/27/18 08/27/18 08/27/18 14:52 15:25 15:25 WBC RBC Hgb Hct MCV MCH MCHC RDW Plt Count MPV Neut % (Auto) Lymph % (Auto) Mills % (Auto) Eos % (Auto) Baso % (Auto) Neut # (Auto) Lymph # (Auto) Mills # (Auto) Eos # (Auto) Baso # (Auto) Neutrophils % (Manual) Band Neutrophils % Lymphocytes % (Manual) Reactive Lymphs % Monocytes % (Manual) Platelet Estimate Sodium 140 Potassium 4.8 Chloride 106 Carbon Dioxide 20 L Anion Gap 19 BUN 96 H Creatinine 3.5 H Est GFR ( Amer) 21 Est GFR (Non-Af Amer) 17 POC Glucose (mg/dL) 102 Random Glucose 109 Calcium 8.8 CK-MB (Mass) Urine Color Urine Clarity Urine pH Ur Specific Alliance Urine Protein Urine Glucose (UA) Urine Ketones Urine Blood Urine Nitrate Urine Bilirubin Urine Urobilinogen Ur Leukocyte Esterase Urine RBC (Auto) Urine Microscopic WBC Ur Squamous Epith Cells Hyaline Casts Salicylates < 1.0 Acetaminophen < 10.0 L Alcohol, Quantitative < 10 08/27/18 08/27/18 08/27/18 15:25 17:30 17:52 WBC 13.0 H D RBC 4.35 L Hgb 14.2 Hct 43.3 MCV 99.7 H D MCH 32.6 H MCHC 32.7 L RDW 13.5 Plt Count 117 L D MPV 10.2 Neut % (Auto) 90.6 H Lymph % (Auto) 4.6 L Mills % (Auto) 4.7 Eos % (Auto) 0.1 Baso % (Auto) 0.0 Neut # (Auto) 11.7 H Lymph # (Auto) 0.6 L Mills # (Auto) 0.6 Eos # (Auto) 0.0 Baso # (Auto) 0.0 Neutrophils % (Manual) 82 H Band Neutrophils % 6 H Lymphocytes % (Manual) 5 L Reactive Lymphs % 2 H Monocytes % (Manual) 5 Platelet Estimate Slightly decreased L Sodium Potassium Chloride Carbon Dioxide Anion Gap BUN Creatinine Est GFR ( Amer) Est GFR (Non-Af Amer) POC Glucose (mg/dL) Random Glucose Calcium CK-MB (Mass) 72.0 H Urine Color Yellow Urine Clarity Slighty-cloudy Urine pH 5.0 Ur Specific Alliance 1.018 Urine Protein 30 Urine Glucose (UA) Neg Urine Ketones Negative Urine Blood Small Urine Nitrate Negative Urine Bilirubin Negative Urine Urobilinogen 0.2-1.0 Ur Leukocyte Esterase Neg Urine RBC (Auto) 2 Urine Microscopic WBC 1 Ur Squamous Epith Cells 1 Hyaline Casts 3-5 H Salicylates Acetaminophen Alcohol, Quantitative Assessment & Plan - Assessment and Plan (Free Text) Assessment: 77 yo male patient with PMH of A fib, CAD, CHF, COPD, HTN and drug abuse admitted with FEDE and altered mental status. Plan: Acute kidney injury - likely 2/2 to hypovolemia/dehydration - h/o several days of poor intake - admit to med/surg - BUN/Cr: 96/3.5, GFR 17 - Nephro consult, awaiting recs - s/p 2L bolus in ED - labs in am Altered mental status Dehydration - likely secondary to dehydration/drug abuse (heroin shot 5 days ago) - head CT no acute intracranial changes - h/o several days of poor intake - s/p 2L bolus in ED - monitor h/o CAD/ Afib r/o CHF - CXR: increased pulmonary congestion - mild LE edema/cough - Echo done in 02/2017: EF 70%, normal LV function - f/u echo in am - start lasix daily - resumed home meds Cocaine/heroine use - last use 5 day ago - Urine drug positive for opiates COPD - chronic - continue home meds Prophylaxis - DVT: SCD for now Case seen and examined with Dr Arellano. <Parvez Arellano - Last Filed: 08/31/18 10:11> Results - Vital Signs Recent Vital Signs: Last Vital Signs Temp 99.2 F 08/31/18 08:00 Pulse 68 08/31/18 08:00 Resp 18 08/31/18 08:00 BP 137/83 08/31/18 08:26 Pulse Ox 99 08/31/18 08:00 - Labs Result Diagrams: 08/31/18 04:25 08/31/18 04:25 Labs: Laboratory Results - last 24 hr 08/30/18 08/31/18 08/31/18 14:32 04:25 04:25 WBC 7.6 RBC 4.48 Hgb 14.7 Hct 43.7 MCV 97.5 H MCH 32.8 H MCHC 33.7 RDW 14.0 Plt Count 132 PT 17.3 H INR 1.5 APTT 25.1 L Sodium 142 Potassium 3.8 Chloride 111 H Carbon Dioxide 21 L Anion Gap 14 BUN 42 H Creatinine 1.2 Est GFR ( Amer) > 60 Est GFR (Non-Af Amer) 59 Random Glucose 100 Calcium 8.7 Attending/Attestation - Attestation I have personally seen and examined this patient.: Yes I have fully participated in the care of the patient.: Yes I have reviewed all pertinent clinical information: Yes Notes (Text): 08/31/18 10:11 Patient seen and examined with resident. Case discussed and agreed with assessment and plan of management.
[2018-08-27 18:32] LABS: BARBITURATES, UR NEGATIVE (NEGATIVE); BENZODIAZEPINES, UR POSITIVE (NEGATIVE); OPIATES, UR POSITIVE (NEGATIVE); PHENCYCLIDINE, UR NEGATIVE (NEGATIVE)
--- NOTE | 2018-08-27 20:39 | CARD ---
APPROVED REPORT Date of service: 08/27/2018 EKG Measurement Heart [id number] <Conclusion> Ventricular-paced rhythm with occasional supraventricular complexes Abnormal ECG
[2018-08-27] MEDS: Fluticasone-Salmeterol 500-50mcg Diskus IH SCH (21:30)
[2018-08-28 04:51] LABS: BASO % 0.1 % (0.0-2.0); EOS % 0.2 % (0.0-4.0); HEMOGLOBIN 14.1 g/dL (12.0-18.0); LYMPH # 0.8 K/uL (1.0-4.3); LYMPH % 6.6 % (20.0-40.0); MEAN CELL VOLUME 97.5 fl (80.0-94.0); MEAN CORPUSCULAR HEMOGLOBIN 32.6 pg (27.0-31.0); MEAN CORPUSCULAR HGB CONC 33.4 g/dL (33.0-37.0); MEAN PLATELET VOLUME 10.3 fl (7.2-11.7); MONO # 0.6 K/uL (0.0-0.8); MONO % 5.4 % (0.0-10.0); NEUT % 87.7 % (50.0-75.0); NRBC % 0.1 % (0.0-0.0); RBC 4.31 Mil/uL (4.40-5.90); RED CELL DISTRIBUTION WIDTH 13.7 % (11.5-14.5); WHITE BLOOD COUNT 11.5 K/uL (4.8-10.8)
[2018-08-28 05:04] LABS: CALCIUM 8.8 mg/dL (8.4-10.2)
[2018-08-28 05:48] LABS: TROPONIN I 0.13 ng/mL (0.00-0.120)
[2018-08-28] MEDS ORDERED: Albuterol-Ipratrop 3 mg / 0.5 (3 ml) UD INH STA (06:54)
[2018-08-28] MEDS: Fluticasone-Salmeterol 500-50mcg Diskus IH SCH ×2 (09:02→21:21)
[2018-08-28] MEDS: Pantoprazole 40 mg EC Tab PO SCH (09:04)
[2018-08-28] MEDS: Tiotropium 18 mcg Cap For Inhalation INH SCH (09:04)
[2018-08-28] MEDS: Sodium Chloride 0.9% 1,000 ML IV SCH ×2 (09:05→18:08)
--- NOTE | 2018-08-28 12:43 | CP.PCM.PN ---
Subjective - Date & Time of Evaluation Date of Evaluation: 08/28/18 Time of Evaluation: 12:38 - Subjective Subjective: RENAL CONSULT HPI: 77 yo male patient with PMHx of HTN, Hep C, Afib, drug abuse came to ER /w altered mental status and weakness. He was unabe to give much history otherwise - according to documentaiton he has had poor po intake since yudith, + heroin and cocaine at home. He had episode of incontinence and n/v as well. No reported fever or chills. ROS a full detailed ros is negative except as in my hpi pmh: htn afib hep c drug abuse copd famhx: unable to obtain confused sochx + drug use + Smoking + etoh meds and allergies as below pe: vs as below gen: nad sclera: anicteric op: clear neck: supple cv: +s1+s2 no rub abd: soft nt nd no organomegaly ext: no edema lungs: reduced bs at bases neuro: drowsy but arousable no focal defecity psych: flat skin no rash labs and imaging reviewed imp: ARF / hypertension / CHF /Drug abuse /anemia/ ckd III plan: continue supportive care cr is improving at thi spoint likely an element of pre-renal given hx ? cocaine induced looks like has some degree of baseline ckd w/ cr in the mid 1 range at baseline ua reviewed check urine protein / cr resume bp meds would hold trice/arb at this point Objective - Vital Signs/Intake and Output Vital Signs (last 24 hours): Temp Pulse Resp BP Pulse Ox 98.0 F 73 21 145/61 99 08/28/18 12:00 08/28/18 12:00 08/28/18 12:00 08/28/18 12:00 08/28/18 12:00 Intake and Output: 08/28/18 08/28/18 06:59 18:59 Intake Total 795 Output Total 2400 150 Balance -1605 -150 - Medications Medications: Current Medications Apixaban (Eliquis) 2.5 mg PO Q12 [facility]; Protocol Last Admin: 08/28/18 09:02 Dose: 2.5 mg Furosemide (Lasix) 20 mg PO DAILY [facility]UJA Last Admin: 08/28/18 09:03 Dose: 20 mg Sodium Chloride (Sodium Chloride 0.9%) 1,000 mls @ 110 mls/hr IV .Q9H6M [facility] Stop: 08/29/18 07:36 Last Admin: 08/28/18 09:05 Dose: 110 mls/hr Pantoprazole Sodium (Protonix Ec Tab) 40 mg PO DAILY [facility] Last Admin: 08/28/18 09:04 Dose: 40 mg Fluticasone/Salmeterol (Advair Diskus 500/50) 1 puff IH Q12 [facility] Last Admin: 08/28/18 09:02 Dose: 1 puff Tiotropium [place] (Spiriva) 18 mcg INH DAILY [facility] Last Admin: 08/28/18 09:04 Dose: 18 mcg - Labs Labs: 08/28/18 04:00 08/28/18 04:41
--- NOTE | 2018-08-28 15:42 | CP.PCM.PN ---
<Garcia Chi - Last Filed: 08/28/18 15:40> Subjective - Date & Time of Evaluation Date of Evaluation: 08/28/18 Time of Evaluation: 10:15 - Subjective Subjective: 77 y/o M was seen and examined by bedside. Pt is awake and alert, verbal in nigerian with some hoarseness, reports feeling better, no pain or complaints. Pt is oriented to person only. Admits to tobacco 5 cigarettes a day, ocasional alcohol and ocasional heroin. Last drug use was 5 days ago, pt reports sniffing unknown amount of heroin. Objective - Vital Signs/Intake and Output Vital Signs (last 24 hours): Temp Pulse Resp BP Pulse Ox 98.0 F 73 21 145/61 99 08/28/18 12:00 08/28/18 12:00 08/28/18 12:00 08/28/18 12:00 08/28/18 12:00 Intake and Output: 08/28/18 08/28/18 06:59 18:59 Intake Total 795 Output Total 2400 300 Balance -1605 -300 - Medications Medications: Current Medications Apixaban (Eliquis) 2.5 mg PO Q12 [facility]; Protocol Last Admin: 08/28/18 09:02 Dose: 2.5 mg Aspirin (Aspirin Chewable) 81 mg PO DAILY [facility] Last Admin: 08/28/18 15:19 Dose: 81 mg Furosemide (Lasix) 20 mg PO DAILY [facility] Last Admin: 08/28/18 09:03 Dose: 20 mg Sodium Chloride (Sodium Chloride 0.9%) 1,000 mls @ 110 mls/hr IV .Q9H6M [facility] Stop: 08/29/18 07:36 Last Admin: 08/28/18 09:05 Dose: 110 mls/hr Pantoprazole Sodium (Protonix Ec Tab) 40 mg PO DAILY [facility] Last Admin: 08/28/18 09:04 Dose: 40 mg Fluticasone/Salmeterol (Advair Diskus 500/50) 1 puff IH Q12 [facility] Last Admin: 08/28/18 09:02 Dose: 1 puff Tiotropium [place] (Spiriva) 18 mcg INH DAILY [facility] Last Admin: 08/28/18 09:04 Dose: 18 mcg - Labs Labs: 08/28/18 04:00 08/28/18 04:41 - Constitutional Appears: No Acute Distress - Head Exam Head Exam: ATRAUMATIC, NORMAL INSPECTION - Eye Exam Eye Exam: EOMI - ENT Exam ENT Exam: Mucous Membranes Dry - Neck Exam Neck Exam: Full ROM. absent: Meningismus - Respiratory Exam Respiratory Exam: NORMAL BREATHING PATTERN. absent: Rales, Rhonchi, Wheezes - Cardiovascular Exam Cardiovascular Exam: +S1, +S2 - GI/Abdominal Exam GI & Abdominal Exam: Soft. absent: Distended, Guarding, Rigid, Tenderness - Extremities Exam Extremities Exam: Full ROM. absent: Calf Tenderness, Pedal Edema, Tenderness - Neurological Exam Neurological Exam: Alert, Awake Neuro motor strength exam: Left Upper Extremity: 5, Right Upper Extremity: 5, Left Lower Extremity: 5, Right Lower Extremity: 5 - Psychiatric Exam Psychiatric exam: Normal Mood Assessment and Plan - Assessment and Plan (Free Text) Assessment: 77 yo male patient with PMH of A fib, CAD, CHF, COPD, HTN and drug abuse admitted with FEDE and altered mental status after sniffing heroin 5 days ago. Plan: Acute kidney injury - likely 2/2 to hypovolemia and dehydration - Improving: BUN/Cr: 94/2.5, GFR 25 - Nephrology on board - Continue IV NSS at 110mL/hr. Altered mental status - Improved today. - Secondary to acute drug intoxication and dehydration - head CT no acute intracranial changes - h/o several days of poor intake Acute on chronic heart failure, unspecified type, echocardio ordered - Hx of CAD/Afib - Mild LE edema/coughCXR: increased pulmonary congestion. - On Lasix 20mg daily - Eliquis 2.5mg BID fro AFib - Echo done in 02/2017: EF 70%, normal LV function - Cardiology consult: Dr Mitchell - f/u echo final report - F/U cardiology recommendations. Leukocytosis - likely reactive. - No fever, CXR with no penumonia Heroine use - Last use 5 days ago - Urine drug positive for opiates COPD - chronic - home meds resumed Prophylaxis - On Eliquis 2.5mg BID <Devika Garcia - Last Filed: 08/28/18 16:25> Objective - Vital Signs/Intake and Output Vital Signs (last 24 hours): Temp Pulse Resp BP Pulse Ox 98.0 F 73 21 145/61 99 08/28/18 12:00 08/28/18 12:00 08/28/18 12:00 08/28/18 12:00 08/28/18 12:00 Intake and Output: 08/28/18 08/28/18 06:59 18:59 Intake Total 795 Output Total 2400 300 Balance -1605 -300 - Medications Medications: Current Medications Apixaban (Eliquis) 2.5 mg PO Q12 [facility]; Protocol Last Admin: 08/28/18 09:02 Dose: 2.5 mg Aspirin (Aspirin Chewable) 81 mg PO DAILY [facility] Last Admin: 08/28/18 15:19 Dose: 81 mg Furosemide (Lasix) 20 mg PO DAILY [facility] Last Admin: 08/28/18 09:03 Dose: 20 mg Sodium Chloride (Sodium Chloride 0.9%) 1,000 mls @ 110 mls/hr IV .Q9H6M [facility] Stop: 08/29/18 07:36 Last Admin: 08/28/18 09:05 Dose: 110 mls/hr Pantoprazole Sodium (Protonix Ec Tab) 40 mg PO DAILY [facility] Last Admin: 08/28/18 09:04 Dose: 40 mg Fluticasone/Salmeterol (Advair Diskus 500/50) 1 puff IH Q12 [facility] Last Admin: 08/28/18 09:02 Dose: 1 puff Tiotropium [place] (Spiriva) 18 mcg INH DAILY [facility] Last Admin: 08/28/18 09:04 Dose: 18 mcg - Labs Labs: 08/28/18 04:00 08/28/18 04:41 Attending/Attestation - Attestation I have personally seen and examined this patient.: Yes I have fully participated in the care of the patient.: Yes I have reviewed all pertinent clinical information, including history, physical exam and plan: Yes Notes (Text): Additional Note: Troponin Elevation, etiology to be determined - work up in progress - may be due to FEDE, Opiate overdose - Cardio consult - Dr Mitchell - ECHO -cont Singh
[2018-08-28] MEDS: guaiFENesin DM 200 mg-20 mg/10 ml UD PO PRN (21:23)
--- NOTE | 2018-08-29 01:05 | CON ---
DATE: 08/28/2018 CARDIOLOGY CONSULTATION REASON FOR CONSULTATION: Atrial fibrillation and borderline troponin elevation. HISTORY OF PRESENT ILLNESS: The patient is a 77-year-old male, who, according to the admitting team and through the , has been lethargic with poor feelings in his [place], has been using cocaine and heroin, according to the . The patient is known to have chronic atrial fibrillation and was on Pradaxa 75 mg twice a day and the patient does not recall why a pacemaker was placed to him in the past and does not follow up with any senior controls engineer at this point. When asked why he came to the hospital, he said he had difficulty moving his leg arm. The patient has significant hoarseness of his voice, but is able to articulate his speech. The patient is unaware of any history of stroke in the past. SOCIAL HISTORY: The patient is , lives with his . He has been using cocaine and heroin, according to the . MEDICATIONS: Current medications; Advair 1 puff twice a day, Eliquis 2.5 mg twice a day, Lasix 20 mg p.o. daily, Protonix 40 mg twice a day, and Spiriva 18 mcg inhalation daily. REVIEW OF SYSTEMS: No nausea or vomiting and no fever or chills. No headache. PHYSICAL EXAMINATION: GENERAL: The patient is an elderly male who does not appear to be in any respiratory distress. He is oriented to place and time. VITAL SIGNS: Blood pressure 145/61, heart rate 73, temperature 98, and respirations 21. HEENT: Normocephalic. CHEST: Clear. HEART: S1 and S2 regular. ABDOMEN: Soft. EXTREMITIES: No edema. Bruising is noted in the left forearm. LABORATORY DATA: Hemoglobin and hematocrit 14.1 and 42, white count 11.5, and platelet count 104,000. Urine drug screen is positive for opiates and benzodiazepines and negative for cocaine. SMA-7: Sodium 143, potassium 3.6, chloride 109, CO2 of 23, glucose 115, BUN 94, and creatinine 2.5. Yesterday's BUN and creatinine are 96 and 3.5 respectively. Troponin is borderline elevated at 0.187, 0.135, and 0.13. ProBNP is 7020. CT scan without contrast revealed no acute intracranial hemorrhage, moderate chronic white matter ischemic changes with scattered bilateral basal nuclei-type infarct. EKG revealed atrial fibrillation at the rate of 76. A chest x-ray revealed borderline cardiomegaly, prominent bronchovascular markings, mild CHF should be considered, and dual-chamber pacemaker. ASSESSMENT: 1. Altered mental status. 2. Chronic atrial fibrillation. 3. Acute renal insufficiency. 4. Heroin abuse according to the and although the claimed cocaine abuse, the drug screen is currently negative. 5. Mild thrombocytopenia. 6. Mild congestive heart failure. RECOMMENDATIONS: Continue Eliquis 2.5 mg twice a day, Lasix 20 mg once a day. The patient is not a suitable candidate for BEVERLY inhibitors at this time. Obtain two set of blood cultures. Start aspirin 81 mg once a day if there is no contraindication. I would review the echocardiographic study performed today. Valeriano Mitchell MD
--- NOTE | 2018-08-29 02:50 | CARD ---
APPROVED REPORT Date of service: 08/28/2018 EXAM: Two-dimensional and M-mode echocardiogram with Doppler and color Doppler. Other Information Quality : GoodRhythm : Pacemaker INDICATION Pulmonary congestion Surgery/Intervention ICD/Pacemaker: 2D DIMENSIONS IVSd1.27 (0.7-1.1cm)LVDd4.13 (3.9-5.9cm) LVOT Diameter2.21 (1.8-2.4cm)PWd1.16 (0.7-1.1cm) IVSs1.73 (0.8-1.2cm)LVDs3.11 (2.5-4.0cm) FS (%) 24.7 %PWs1.42 (0.8-1.2cm) M-Mode DIMENSIONS Left Atrium (MM)4.32 (2.5-4.0cm)IVSd1.03 (0.7-1.1cm) Aortic Root3.85 (2.2-3.7cm)LVDd4.97 (4.0-5.6cm) Aortic Cusp Exc.1.82 (1.5-2.0cm)PWd0.82 (0.7-1.1cm) IVSs1.26 cmFS (%) 42 % LVDs2.88 (2.0-3.8cm)PWs1.82 cm Aortic Valve AoV Peak Hjaohrxf744.5cm/sAoV VTI21.8cmAO Peak GR.8mmHg LVOT Peak Gbcjlvoq24.1cm/sLVOT VTI14.07cmAO Mean GR.4mmHg MONSTER (VMAX)1.77nu8WGT (VTI)1.19cm2 Mitral Valve E/A ratio0.0 TDI E/Lateral E'0.0E/Medial E'0.0 Tricuspid Valve TR Peak [id number]/sRAP [id number] Peak Gr.27mmHg [id number] LEFT VENTRICLE The left ventricle is normal size. There is mild concentric left ventricular hypertrophy. The left ventricular systolic function is low normal. The estimated ejection fraction is 50-55% No regional wall motion abnormalities noted.. The left ventricular diastolic function cannot be assessed due to underlying atrial fibrillation. No left ventricle thrombus noted on this study. There is no ventricular septal defect visualized. There is no left ventricular aneurysm. There is no mass noted in the left ventricle. RIGHT VENTRICLE The right ventricle is normal size. There is normal right ventricular wall thickness. The right ventricular systolic function is normal. PPM lead is noticed in right ventricle. ATRIA The left atrium is mildly dilated. The right atrium size is normal. The interatrial septum is intact with no evidence for an atrial septal defect. AORTIC VALVE The aortic valve is normal in structure. No aortic regurgitation is present. There is no aortic valvular stenosis. There is no aortic valvular vegetation. MITRAL VALVE The mitral valve is normal in structure. There is no evidence of mitral valve prolapse. There is no mitral valve stenosis. There is mild mitral valve regurgitation noted. TRICUSPID VALVE The tricuspid valve is normal in structure. There is mild tricuspid valve regurgitation noted. RVSP is calculated at 32 mm Hg. There is no tricuspid valve prolapse or vegetation. There is no tricuspid valve stenosis. PULMONIC VALVE The pulmonary valve is normal in structure. There is no pulmonic valvular regurgitation. There is no pulmonic valvular stenosis. GREAT VESSELS The aortic root is normal in size. The ascending aorta is normal in size. The pulmonary artery is normal. The IVC is normal in size and collapses >50% with inspiration. PERICARDIAL EFFUSION There is no pericardial effusion. There is no pleural effusion. <Conclusion> There is mild concentric left ventricular hypertrophy. The left ventricular systolic function is low normal. The estimated ejection fraction is 50-55% The left ventricular diastolic function cannot be assessed due to underlying atrial fibrillation. The left atrium is mildly dilated. PPM lead is noticed in right ventricle. There is mild mitral valve regurgitation noted. There is mild tricuspid valve regurgitation noted. RVSP is calculated at 32 mm Hg.
--- NOTE | 2018-08-29 03:10 | CARD ---
APPROVED REPORT Date of service: 08/28/2018 EKG Measurement Heart [id number] <Conclusion> Atrial fibrillation Abnormal ECG
[2018-08-29] MEDS: Sodium Chloride 0.9% 1,000 ML IV SCH ×2 (03:12→03:13)
[2018-08-29 05:12] LABS: HEMOGLOBIN 13.7 g/dL (12.0-18.0); MEAN CELL VOLUME 97.4 fl (80.0-94.0); MEAN CORPUSCULAR HEMOGLOBIN 33.1 pg (27.0-31.0); MEAN CORPUSCULAR HGB CONC 33.9 g/dL (33.0-37.0); RBC 4.16 Mil/uL (4.40-5.90); RED CELL DISTRIBUTION WIDTH 13.5 % (11.5-14.5); WHITE BLOOD COUNT 6.6 K/uL (4.8-10.8)
[2018-08-29 05:46] LABS: CALCIUM 8.6 mg/dL (8.4-10.2)
[2018-08-29] MEDS: Pantoprazole 40 mg EC Tab PO SCH (08:39)
[2018-08-29] MEDS: Fluticasone-Salmeterol 500-50mcg Diskus IH SCH ×2 (08:39→20:46)
[2018-08-29] MEDS: Tiotropium 18 mcg Cap For Inhalation INH SCH (08:39)
--- NOTE | 2018-08-29 09:53 | CP.PCM.PN ---
<Wen Dahl - Last Filed: 08/29/18 12:11> Subjective - Date & Time of Evaluation Date of Evaluation: 08/29/18 Time of Evaluation: 08:40 - Subjective Subjective: Pt seen/eval at bedside this am. Awake, alert, eating breakfast. Reports that he feels ok but feels weak; poor historian. Objective - Vital Signs/Intake and Output Vital Signs (last 24 hours): Temp Pulse Resp BP Pulse Ox 98.8 F 84 18 152/79 H 96 08/29/18 07:46 08/29/18 07:46 08/29/18 07:46 08/29/18 08:39 08/29/18 07:46 - Medications Medications: Current Medications Apixaban (Eliquis) 2.5 mg PO Q12 [facility]; Protocol Last Admin: 08/29/18 08:39 Dose: 2.5 mg Aspirin (Aspirin Chewable) 81 mg PO DAILY [facility] Last Admin: 08/29/18 08:41 Dose: 81 mg Furosemide (Lasix) 20 mg PO DAILY [facility] Last Admin: 08/29/18 08:39 Dose: 20 mg Guaifenesin/Dextromethorphan (Robitussin Dm) 10 ml PO Q4 PRN PRN Reason: Cough Last Admin: 08/28/18 21:23 Dose: 10 ml Pantoprazole Sodium (Protonix Ec Tab) 40 mg PO DAILY [facility] Last Admin: 08/29/18 08:39 Dose: 40 mg Fluticasone/Salmeterol (Advair Diskus 500/50) 1 puff IH Q12 [facility] Last Admin: 08/29/18 08:39 Dose: 1 puff Tiotropium [place] (Spiriva) 18 mcg INH DAILY [facility] Last Admin: 08/29/18 08:39 Dose: 18 mcg - Labs Labs: 08/29/18 04:10 08/29/18 04:10 - Constitutional Appears: No Acute Distress - Head Exam Head Exam: ATRAUMATIC - Eye Exam Eye Exam: Normal appearance - Neck Exam Neck Exam: Full ROM - Respiratory Exam Respiratory Exam: NORMAL BREATHING PATTERN. absent: Respiratory Distress - Cardiovascular Exam Cardiovascular Exam: +S1, +S2 - GI/Abdominal Exam GI & Abdominal Exam: Soft, Normal Bowel Sounds - Extremities Exam Extremities Exam: absent: Calf Tenderness, Pedal Edema - Neurological Exam Neurological Exam: Alert, Awake - Skin Skin Exam: Warm Assessment and Plan - Assessment and Plan (Free Text) Assessment: 77 yo male patient with PMH of A-fib, CAD, CHF, COPD, HTN and drug abuse admitted with FEDE and altered mental status after sniffing heroin 5 days ago. Reports feeling ok but weak; does not verbalize specific complaints. Plan: Acute Kidney Injury on CKD - Likely due to hypovolemia and dehydration - Improving, Cr 1.8; baseline 1.5-1.6 - Nephrology on board, Dr. Funes - check urine protein and urine creatinine; recs appreciated Acute on chronic heart failure, unspecified type - Hx of CAD/Afib - CXR: increased pulmonary congestion. - On Lasix 20mg daily - Eliquis 2.5mg BID for AFib - Echo done in 02/2017: EF 70%, normal LV function - Cardiology consult: Dr Mitchell - rec blood cultures, pending new echo rev iew; recs appreciated Hypokalemia - 3.3; replete with 20 mEq PO COPD - Chronic, stable - Home meds resumed Weakness/Falls - PT eval for gait Leukocytosis -Resolved Altered mental status - Likely secondary to acute drug intoxication and dehydration - Head CT no acute intracranial changes Heroin use - Last use 5 days ago - Urine drug positive for opiates Prophylaxis - On Eliquis 2.5mg BID <Devika Garcia - Last Filed: 08/29/18 14:21> Objective - Vital Signs/Intake and Output Vital Signs (last 24 hours): Temp Pulse Resp BP Pulse Ox 98.0 F 89 18 145/86 96 08/29/18 11:40 08/29/18 11:40 08/29/18 11:40 08/29/18 11:40 08/29/18 11:40 - Medications Medications: Current Medications Apixaban (Eliquis) 2.5 mg PO Q12 [facility]; Protocol Last Admin: 08/29/18 08:39 Dose: 2.5 mg Aspirin (Aspirin Chewable) 81 mg PO DAILY [facility] Last Admin: 08/29/18 08:41 Dose: 81 mg Furosemide (Lasix) 20 mg PO DAILY [facility] Last Admin: 08/29/18 08:39 Dose: 20 mg Guaifenesin/Dextromethorphan (Robitussin Dm) 10 ml PO Q4 PRN PRN Reason: Cough Last Admin: 08/28/18 21:23 Dose: 10 ml Pantoprazole Sodium (Protonix Ec Tab) 40 mg PO DAILY [facility] Last Admin: 08/29/18 08:39 Dose: 40 mg Potassium Chloride (K-Dur 20 Meq Er Tab) 20 meq PO BID [facility] Last Admin: 08/29/18 12:47 Dose: 20 meq Fluticasone/Salmeterol (Advair Diskus 500/50) 1 puff IH Q12 [facility] Last Admin: 08/29/18 08:39 Dose: 1 puff Tiotropium [place] (Spiriva) 18 mcg INH DAILY [facility] Last Admin: 08/29/18 08:39 Dose: 18 mcg - Labs Labs: 08/29/18 04:10 08/29/18 04:10 Attending/Attestation - Attestation I have personally seen and examined this patient.: Yes I have fully participated in the care of the patient.: Yes I have reviewed all pertinent clinical information, including history, physical exam and plan: Yes Notes (Text): Troponin Elevation need to r/o CAD, discussed case with Cardio - pt may need Cardiac Cath once renal function is better AMS prob Toxic Metabolic Encephalopathy pt admits to Heroin Use prior to admission and also some ETOH use need to r/o CVA - Dr Mitchell rec Neuro eval - rpt CT of the head ( unable to do MRI due to presence of Pacemaker)
[2018-08-29] MEDS: Potassium Chloride 20 mEq ER Tab PO SCH (12:47)
--- NOTE | 2018-08-29 17:04 | CT ---
Date of service: 08/29/2018 PROCEDURE: CT HEAD WITHOUT CONTRAST. HISTORY: AMS, followup COMPARISON: Comparison made with CT scan brain 08/27/2018 TECHNIQUE: Axial computed tomography images were obtained through the head/brain without intravenous contrast. Radiation dose: Total exam DLP = 859.36 mGy-cm. This CT exam was performed using one or more of the following dose reduction techniques: Automated exposure control, adjustment of the mA and/or kV according to patient size, and/or use of iterative reconstruction technique. FINDINGS: HEMORRHAGE: No acute parenchymal, subarachnoid nor extra-axial hemorrhage. BRAIN: Mild diffuse and confluent chronic periventricular white matter ischemic changes seen extending peripherally into the deep and subcortical white matter both cerebral hemispheres.. There also appears to be a few scattered chronic bilateral basal nuclei lacunar type infarcts. Note that the possibility of a small hyperacute infarct cannot be excluded. Clinical correlation recommended. Moderate generalized volume loss Partially empty sella. Mild vascular calcifications both carotid siphons and right vertebral artery. The there appears to be mild dolichoectasia of the right vertebral and basilar arteries. The left left vertebral artery may in fact terminate in a left-sided PICA VENTRICLES: No obstructive hydrocephalus. CALVARIUM: Calvarium intact. PARANASAL SINUSES: Unremarkable as visualized. No significant inflammatory changes. MASTOID AIR CELLS: Unremarkable as visualized. No inflammatory changes. OTHER FINDINGS: None. IMPRESSION: No acute intracranial hemorrhage. Mild to moderate chronic white matter ischemic changes with few scattered chronic bilateral basal nuclei lacunar type infarcts. Moderate generalized volume loss. There is mild dolichoectasia of the right vertebral artery and basilar artery.
--- NOTE | 2018-08-29 19:47 | PN ---
DATE: 08/29/2018 SUBJECTIVE: The patient is slightly lethargic but arousable, oriented to place. He has significant hoarseness of his voice. He denies any chest pain. PHYSICAL EXAMINATION: VITAL SIGNS: Blood pressure 145/86, heart rate 89, temperature 98, and respirations 18. HEENT: Normocephalic. CHEST: Clear. HEART: S1 and S2 regular. EXTREMITIES: No edema. LABORATORY DATA: Today's hemoglobin and hematocrit 13.7 and 40.5, white count 6.6, platelet count 97,000. Today's SMA-7: Sodium 142, potassium 3.3, chloride 115, CO2 of 22, glucose 108, BUN 69, creatinine 1.8. Yesterday's EKG revealed atrial fibrillation at the rate of 76. Echocardiographic study report revealed mild concentric LVH, ejection fraction ranging from 50% to 55%, mildly dilated left atrium, mild mitral regurgitation, and mild tricuspid regurgitation. ASSESSMENT: 1. Borderline troponin elevation, rule out non-ST elevation myocardial infarction. 2. Chronic atrial fibrillation. 3. Improving renal insufficiency. 4. Hypokalemia. 5. Heroin abuse. 6. History of dual-chamber pacemaker placement. RECOMMENDATIONS: Continue aspirin 81 mg once a day, Eliquis 2.5 mg once a day, K-Dur 20 mEq daily was started today. I recommend discontinuing Lasix, and continue current Spiriva 18 mcg inhalation daily. The case was discussed with the patient's on the phone, and the patient has no known prior history of heart attack in the past. The patient will be recommended to undergo a left heart catheterization once the renal function is stabilized, and if the patient and his understands all the involved risks. In the meantime, we will obtain a followup BNP in the a.m. Valeriano Mitchell MD
[2018-08-29] MEDS: guaiFENesin DM 200 mg-20 mg/10 ml UD PO PRN (21:39)
[2018-08-30] MEDS: guaiFENesin DM 200 mg-20 mg/10 ml UD PO PRN (04:36)
[2018-08-30 06:00] LABS: BASO % 0.1 % (0.0-2.0); EOS % 0.6 % (0.0-4.0); HEMOGLOBIN 14.7 g/dL (12.0-18.0); LYMPH # 0.8 K/uL (1.0-4.3); LYMPH % 13.5 % (20.0-40.0); MEAN CELL VOLUME 97.4 fl (80.0-94.0); MEAN CORPUSCULAR HEMOGLOBIN 32.3 pg (27.0-31.0); MEAN CORPUSCULAR HGB CONC 33.1 g/dL (33.0-37.0); MEAN PLATELET VOLUME 10.5 fl (7.2-11.7); MONO # 0.7 K/uL (0.0-0.8); MONO % 11.9 % (0.0-10.0); NEUT # 4.5 K/uL (1.8-7.0); NEUT % 73.9 % (50.0-75.0); NRBC % 0.4 % (0.0-0.0); RBC 4.54 Mil/uL (4.40-5.90); RED CELL DISTRIBUTION WIDTH 13.7 % (11.5-14.5); WHITE BLOOD COUNT 6.1 K/uL (4.8-10.8)
[2018-08-30 06:30] LABS: ALBUMIN 3.3 g/dL (3.5-5.0); CALCIUM 9.1 mg/dL (8.4-10.2)
[2018-08-30] MEDS ORDERED: Potassium Phosphate 30 MMOLE in Sodium Chloride 0.9% 250 ML IV ONE (08:45)
[2018-08-30] MEDS: Fluticasone-Salmeterol 500-50mcg Diskus IH SCH ×2 (09:37→20:57)
[2018-08-30] MEDS: Potassium Chloride 20 mEq ER Tab PO SCH (09:38)
[2018-08-30] MEDS: Pantoprazole 40 mg EC Tab PO SCH (09:38)
[2018-08-30] MEDS: Tiotropium 18 mcg Cap For Inhalation INH SCH (09:39)
--- NOTE | 2018-08-30 12:56 | CP.PCM.PN ---
Subjective - Date & Time of Evaluation Date of Evaluation: 08/30/18 Time of Evaluation: 11:19 - Subjective Subjective: vs as below gen: nad sclera: anicteric op: clear neck: supple cv: +s1+s2 no rub abd: soft nt nd no organomegaly ext: no edema lungs: reduced bs at bases neuro: no focal defecits psych: flat skin no rash imp: ARF / hypertension / CHF /Drug abuse /anemia/ ckd III plan: continue supportive care, renal function slowly improving lytes reviewed looks like has some degree of baseline ckd w/ cr in the mid 1 range at baseline urine studies reviewed, bland with no proteinuria resume bp meds would hold trice/arb at this point Objective - Vital Signs/Intake and Output Vital Signs (last 24 hours): Temp Pulse Resp BP Pulse Ox 97.7 F 75 20 151/92 H 98 08/30/18 08:08 08/30/18 08:08 08/30/18 08:08 08/30/18 09:38 08/30/18 08:08 - Medications Medications: Current Medications Apixaban (Eliquis) 2.5 mg PO Q12 [facility]; Protocol Last Admin: 08/30/18 09:37 Dose: 2.5 mg Aspirin (Aspirin Chewable) 81 mg PO DAILY [facility] Last Admin: 08/30/18 09:37 Dose: 81 mg Furosemide (Lasix) 20 mg PO DAILY [facility] Last Admin: 08/30/18 09:38 Dose: 20 mg Guaifenesin/Dextromethorphan (Robitussin Dm) 10 ml PO Q4 PRN PRN Reason: Cough Last Admin: 08/30/18 04:36 Dose: 10 ml Potassium Phosphate 30 mmole/ (Sodium Chloride) 260 mls @ 65 mls/hr IV ONCE ONE Stop: 08/30/18 12:44 Pantoprazole Sodium (Protonix Ec Tab) 40 mg PO DAILY [facility] Last Admin: 08/30/18 09:38 Dose: 40 mg Potassium Chloride (K-Dur 20 Meq Er Tab) 20 meq PO BID [facility] Last Admin: 08/30/18 09:38 Dose: 20 meq Fluticasone/Salmeterol (Advair Diskus 500/50) 1 puff IH Q12 [facility] Last Admin: 08/30/18 09:37 Dose: 1 puff Tiotropium [place] (Spiriva) 18 mcg INH DAILY [facility] Last Admin: 08/30/18 09:39 Dose: 18 mcg - Labs Labs: 08/30/18 04:30 08/30/18 04:30
--- NOTE | 2018-08-30 12:59 | CP.PCM.PN ---
<ShinetigrenormWen - Last Filed: 08/30/18 14:09> Subjective - Date & Time of Evaluation Date of Evaluation: 08/30/18 Time of Evaluation: 09:30 - Subjective Subjective: Pt seen/eval at bedside; no acute events overnight. Worked with PT yesterday, able to ambulate. Objective - Vital Signs/Intake and Output Vital Signs (last 24 hours): Temp Pulse Resp BP Pulse Ox 97.7 F 75 20 151/92 H 98 08/30/18 08:08 08/30/18 08:08 08/30/18 08:08 08/30/18 09:38 08/30/18 08:08 - Medications Medications: Current Medications Apixaban (Eliquis) 2.5 mg PO Q12 [facility]; Protocol Last Admin: 08/30/18 09:37 Dose: 2.5 mg Aspirin (Aspirin Chewable) 81 mg PO DAILY [facility] Last Admin: 08/30/18 09:37 Dose: 81 mg Furosemide (Lasix) 20 mg PO DAILY [facility] Last Admin: 08/30/18 09:38 Dose: 20 mg Guaifenesin/Dextromethorphan (Robitussin Dm) 10 ml PO Q4 PRN PRN Reason: Cough Last Admin: 08/30/18 04:36 Dose: 10 ml Potassium Phosphate 30 mmole/ (Sodium Chloride) 260 mls @ 65 mls/hr IV ONCE ONE Stop: 08/30/18 12:44 Pantoprazole Sodium (Protonix Ec Tab) 40 mg PO DAILY [facility] Last Admin: 08/30/18 09:38 Dose: 40 mg Potassium Chloride (K-Dur 20 Meq Er Tab) 20 meq PO BID [facility] Last Admin: 08/30/18 09:38 Dose: 20 meq Fluticasone/Salmeterol (Advair Diskus 500/50) 1 puff IH Q12 [facility] Last Admin: 08/30/18 09:37 Dose: 1 puff Tiotropium [place] (Spiriva) 18 mcg INH DAILY [facility] Last Admin: 08/30/18 09:39 Dose: 18 mcg - Labs Labs: 08/30/18 04:30 08/30/18 04:30 - Constitutional Appears: No Acute Distress - Head Exam Head Exam: NORMAL INSPECTION - Eye Exam Eye Exam: Normal appearance - Neck Exam Neck Exam: Full ROM - Respiratory Exam Respiratory Exam: Clear to Ausculation Bilateral, NORMAL BREATHING PATTERN. absent: Respiratory Distress - Cardiovascular Exam Cardiovascular Exam: +S1, +S2 - GI/Abdominal Exam GI & Abdominal Exam: Soft, Normal Bowel Sounds - Extremities Exam Extremities Exam: Normal Inspection. absent: Calf Tenderness, Pedal Edema - Neurological Exam Neurological Exam: Alert - Skin Skin Exam: Dry, Warm Assessment and Plan - Assessment and Plan (Free Text) Assessment: 77 yo male patient with PMH of A-fib, CAD, CHF, COPD, HTN and drug abuse admitted with FEDE and altered mental status after sniffing heroin 5 days ago. Reports feeling better today; pending cardiac cath Tuesday09/01/18 Plan: Acute Kidney Injury on CKD - Likely due to hypovolemia and dehydration - Improving, Cr 1.4; baseline 1.5-1.6 - Nephrology on board Acute on chronic heart failure, unspecified type - Hx of CAD/Afib - CXR: increased pulmonary congestion. - On Lasix 20mg daily - Normally eliquis 2.5mg BID for AFib - Echo done in 02/2017: EF 70%, normal LV function - Cardiology consult: Dr Mitchell Troponin Elevation - Discussed case with Cardio - will get cardiac cath Tuesday09/01/18; will hold eliquis and start therapeutic lovenox (hold morning of procedure) AMS, likely secondary to drug use - Resolved - Pt admits to heroin use prior to admission and also ETOH use Hypokalemia, - Repleting w/ K- phos, 30 mmol COPD - Chronic, stable - Home meds resumed Weakness/Falls - PT eval for gait Leukocytosis -Resolved Heroin use - Last use 5 days ago - Urine drug positive for opiates Prophylaxis - On Eliquis 2.5mg BID - to be held starting today; will get SC lovenox <Devika Garcia - Last Filed: 08/30/18 17:15> Objective - Vital Signs/Intake and Output Vital Signs (last 24 hours): Temp Pulse Resp BP Pulse Ox 97.7 F 80 16 129/75 97 08/30/18 15:49 08/30/18 15:49 08/30/18 15:49 08/30/18 15:49 08/30/18 15:49 - Medications Medications: Current Medications Aspirin (Aspirin Chewable) 81 mg PO DAILY [facility] Last Admin: 08/30/18 09:37 Dose: 81 mg Enoxaparin Sodium (Lovenox) 80 mg [place] Q12 [facility]; Protocol Furosemide (Lasix) 20 mg PO DAILY [facility] Last Admin: 08/30/18 09:38 Dose: 20 mg Guaifenesin/Dextromethorphan (Robitussin Dm) 10 ml PO Q4 PRN PRN Reason: Cough Last Admin: 08/30/18 04:36 Dose: 10 ml Pantoprazole Sodium (Protonix Ec Tab) 40 mg PO DAILY [facility] Last Admin: 08/30/18 09:38 Dose: 40 mg Potassium Chloride (K-Dur 20 Meq Er Tab) 20 meq PO BID [facility] Last Admin: 08/30/18 09:38 Dose: 20 meq Fluticasone/Salmeterol (Advair Diskus 500/50) 1 puff IH Q12 [facility] Last Admin: 08/30/18 09:37 Dose: 1 puff Tiotropium [place] (Spiriva) 18 mcg INH DAILY [facility] Last Admin: 08/30/18 09:39 Dose: 18 mcg - Labs Labs: 08/30/18 04:30 08/30/18 04:30 PT 17.3 Seconds (9.8-13.1) H 08/30/18 14:32 INR 1.5 08/30/18 14:32 APTT 25.1 Seconds (25.6-37.1) L 08/30/18 14:32 Attending/Attestation - Attestation I have personally seen and examined this patient.: Yes I have fully participated in the care of the patient.: Yes I have reviewed all pertinent clinical information, including history, physical exam and plan: Yes Notes (Text): Troponin Elevation - Plan for Cardiac cath Tuesday - wants Eliquis off at least 2 days prior to Cath - Dr Mitchell rec d/c Eliquis - change to Lovenox
[2018-08-30 16:13] LABS: INR 1.5; PROTHROMBIN TIME 17.3 Seconds (9.8-13.1)
[2018-08-30 16:16] LABS: PARTIAL THROMBOPLASTIN TIME 25.1 Seconds (25.6-37.1)
--- NOTE | 2018-08-30 16:33 | PN ---
DATE: 08/30/2018 SUBJECTIVE: The patient denies chest pain. PHYSICAL EXAMINATION: VITAL SIGNS: Blood pressure 151/92, heart rate 75, temperature 97.7, respirations 20. HEENT: Normocephalic. CHEST: Clear. HEART: S1 and S2, regular. EXTREMITIES: No edema. LABORATORY DATA: Hemoglobin and hematocrit 14.7 and 44.2, white count 6.1, platelet count 118,000. Today's SMA-7; sodium 143, potassium 3.2, chloride 111, CO2 of 22, glucose 116, BUN 49, creatinine 1.4. CT scan without contrast, which did yesterday; however, the reports are not accessible on [place] database at this time. ASSESSMENT: 1. Opiate heroin abuse. 2. Borderline troponin elevation, consider non-ST elevation myocardial infarction. 3. Improving renal insufficiency. 4. Hypokalemia. RECOMMENDATIONS: Continue aspirin 81 mg once a day, K-Dur 20 mEq twice a day, Lasix 20 mg p.o. once a day. The patient is also receiving potassium acetate intravenous infusion. Hold Eliquis for two days prior to cardiac catheterization to be scheduled at [facility]. Obtain followup . Valeriano Mitchell MD
[2018-08-30] MEDS: Enoxaparin 80 mg Syringe SC SCH (20:58)
[2018-08-31 06:39] LABS: BLOOD UREA NITROGEN 42 mg/dl (9-20); CALCIUM 8.7 mg/dL (8.4-10.2); GFR NON-AFRICAN AMERICAN 59
[2018-08-31 06:40] LABS: HEMOGLOBIN 14.7 g/dL (12.0-18.0); MEAN CELL VOLUME 97.5 fl (80.0-94.0); MEAN CORPUSCULAR HEMOGLOBIN 32.8 pg (27.0-31.0); MEAN CORPUSCULAR HGB CONC 33.7 g/dL (33.0-37.0); RBC 4.48 Mil/uL (4.40-5.90); WHITE BLOOD COUNT 7.6 K/uL (4.8-10.8)
[2018-08-31] MEDS: Fluticasone-Salmeterol 500-50mcg Diskus IH SCH ×2 (08:25→22:41)
[2018-08-31] MEDS: Enoxaparin 80 mg Syringe SC SCH (08:25)
[2018-08-31] MEDS: Tiotropium 18 mcg Cap For Inhalation INH SCH (08:26)
[2018-08-31] MEDS: Pantoprazole 40 mg EC Tab PO SCH (08:26)
[2018-08-31] MEDS: Sodium Chloride 0.9% 1,000 ML IV SCH ×2 (08:57→19:24)
--- NOTE | 2018-08-31 11:40 | CP.PCM.PN ---
<Wen Dahl - Last Filed: 08/31/18 15:11> Subjective - Date & Time of Evaluation Date of Evaluation: 08/31/18 Time of Evaluation: 09:45 - Subjective Subjective: Pt seen/eval at bedside this am. Reports no acute complaints. Denies chest pain, shortness of breath. Able to negotiate stairs with PT. For cardiac cath tomorrow as per cardiology. Objective - Vital Signs/Intake and Output Vital Signs (last 24 hours): Temp Pulse Resp BP Pulse Ox 99.2 F 68 18 137/83 99 08/31/18 08:00 08/31/18 08:00 08/31/18 08:00 08/31/18 08:26 08/31/18 08:00 - Medications Medications: Current Medications Aspirin (Aspirin Chewable) 81 mg PO DAILY [facility] Last Admin: 08/31/18 08:27 Dose: 81 mg Enoxaparin Sodium (Lovenox) 80 mg [place] Q12 [facility]; Protocol Last Admin: 08/31/18 08:25 Dose: 80 mg Furosemide (Lasix) 20 mg PO DAILY [facility] Last Admin: 08/31/18 08:26 Dose: 20 mg Guaifenesin/Dextromethorphan (Robitussin Dm) 10 ml PO Q4 PRN PRN Reason: Cough Last Admin: 08/30/18 04:36 Dose: 10 ml Sodium Chloride (Sodium Chloride 0.9%) 1,000 mls @ 100 mls/hr IV .Q10H [facility] Stop: 09/01/18 04:14 Last Admin: 08/31/18 08:57 Dose: 100 mls/hr Pantoprazole Sodium (Protonix Ec Tab) 40 mg PO DAILY [facility] Last Admin: 08/31/18 08:26 Dose: 40 mg Potassium Chloride (K-Dur 20 Meq Er Tab) 20 meq PO BID [facility] Last Admin: 08/30/18 09:38 Dose: 20 meq Fluticasone/Salmeterol (Advair Diskus 500/50) 1 puff IH Q12 [facility] Last Admin: 08/31/18 08:25 Dose: 1 puff Tiotropium [place] (Spiriva) 18 mcg INH DAILY [facility] Last Admin: 08/31/18 08:26 Dose: 18 mcg - Labs Labs: 08/31/18 04:25 08/31/18 04:25 PT 17.3 Seconds (9.8-13.1) H 08/30/18 14:32 INR 1.5 08/30/18 14:32 APTT 25.1 Seconds (25.6-37.1) L 08/30/18 14:32 - Constitutional Appears: No Acute Distress - Eye Exam Eye Exam: Normal appearance - Neck Exam Neck Exam: Full ROM - Respiratory Exam Respiratory Exam: NORMAL BREATHING PATTERN. absent: Respiratory Distress - Cardiovascular Exam Cardiovascular Exam: +S1, +S2 - GI/Abdominal Exam GI & Abdominal Exam: Soft, Normal Bowel Sounds. absent: Tenderness - Extremities Exam Extremities Exam: Normal Inspection. absent: Calf Tenderness, Pedal Edema - Neurological Exam Neurological Exam: Alert - Skin Skin Exam: Dry, Warm Assessment and Plan - Assessment and Plan (Free Text) Assessment: 77 yo male patient with PMH of A-fib, CAD, CHF, COPD, HTN and drug abuse admitted with FEDE and altered mental status after sniffing heroin. Found to have elevated CPK and FEDE - renal function recovering (Cr down to 1.2 from 3.5 on admission, has underlying CKD with baseline in mid 1s). Found to have elevated troponins - pending cardiac cath tomorrow (eliquis has been held since yesterday, started lovenox). Plan: Acute Kidney Injury on CKD - Likely due to hypovolemia and dehydration - Improving, Cr 1.4; baseline 1.5-1.6 - Nephrology on board - hold [place]/ARB - Gentle hydration Acute on chronic heart failure, unspecified type - Hx of CAD/Afib - CXR: increased pulmonary congestion - Lasix 20 mg daily - Normally eliquis 2.5mg BID for AFib; held yest and today - New echo: EF 50-55%, mild concentric LVH, systolic function low-normal, A-fib (thus cannot assess left ventricular diastolic function), PPM lead visible - Cardiology consult: Dr Mitchell - rec aspirin, cath Troponin Elevation - Discussed case with Cardio - will get cardiac cath Tuesday09/01/18; will hold eliquis and start therapeutic lovenox (hold morning of procedure) AMS, likely secondary to drug use - Resolved - Pt admits to heroin use prior to admission and also ETOH use COPD - Chronic, stable - Home meds resumed Leukocytosis -Resolved Hypokalemia, - Resolved Heroin use - Last use 5 days ago - Urine drug positive for opiates Prophylaxis -- Normally eliquis 2.5mg BID for AFib; held yest and today - Lovenox today; to be held tomorrow am <Parvez Arellano - Last Filed: 08/31/18 15:40> Objective - Vital Signs/Intake and Output Vital Signs (last 24 hours): Temp Pulse Resp BP Pulse Ox 97.9 F 60 18 113/75 97 08/31/18 12:00 08/31/18 12:00 08/31/18 12:00 08/31/18 12:00 08/31/18 12:00 - Medications Medications: Current Medications Aspirin (Aspirin Chewable) 81 mg PO DAILY [facility] Last Admin: 08/31/18 08:27 Dose: 81 mg Furosemide (Lasix) 20 mg PO DAILY [facility] Last Admin: 08/31/18 08:26 Dose: 20 mg Guaifenesin/Dextromethorphan (Robitussin Dm) 10 ml PO Q4 PRN PRN Reason: Cough Last Admin: 08/30/18 04:36 Dose: 10 ml Sodium Chloride (Sodium Chloride 0.9%) 1,000 mls @ 100 mls/hr IV .Q10H [facility] Stop: 09/01/18 04:14 Last Admin: 08/31/18 08:57 Dose: 100 mls/hr Pantoprazole Sodium (Protonix Ec Tab) 40 mg PO DAILY [facility] Last Admin: 08/31/18 08:26 Dose: 40 mg Potassium Chloride (K-Dur 20 Meq Er Tab) 20 meq PO BID [facility] Last Admin: 08/30/18 09:38 Dose: 20 meq Fluticasone/Salmeterol (Advair Diskus 500/50) 1 puff IH Q12 [facility] Last Admin: 08/31/18 08:25 Dose: 1 puff Tiotropium [place] (Spiriva) 18 mcg INH DAILY [facility] Last Admin: 08/31/18 08:26 Dose: 18 mcg - Labs Labs: 08/31/18 04:25 08/31/18 04:25 PT 17.3 Seconds (9.8-13.1) H 08/30/18 14:32 INR 1.5 08/30/18 14:32 APTT 25.1 Seconds (25.6-37.1) L 08/30/18 14:32 Attending/Attestation - Attestation I have personally seen and examined this patient.: Yes I have fully participated in the care of the patient.: Yes I have reviewed all pertinent clinical information, including history, physical exam and plan: Yes Notes (Text): 08/31/18 15:39 Patient seen and examined with resident. Case discussed and agreed with ass essment. Patient agreed to stay until cardiac cath is done. If everything is okay, patient may be discharged on Tuesday
[2018-08-31] MEDS ORDERED: Enoxaparin 80 mg Syringe SC SCH (15:39)
--- NOTE | 2018-08-31 15:45 | CP.PCM.PN ---
Subjective - Date & Time of Evaluation Date of Evaluation: 08/31/18 Time of Evaluation: 15:42 - Subjective Subjective: Renal Note Pt no complaints. denies CP/SOB or urine complaints not much interactibg though vs as below gen: nad sclera: anicteric op: clear neck: supple cv: +s1+s2 no rub abd: soft nt nd no organomegaly ext: no edema lungs: reduced bs at bases with few wheeze neuro: no focal defecits psych: flat skin no rash imp: ARF / hypertension / CHF /Drug abuse /anemia/ ckd III plan: continue supportive care, renal function slowly improving lytes reviewed looks like has some degree of baseline ckd w/ cr in the mid 1 range at baseline urine studies reviewed, bland with no proteinuria will check renal sonogram can resume acei or arb after cardiac cath from renal perspective, if renal function remains stable pt for cardiac cath, will be at increased risk of contrast nephropathy. agree with IVF as NS to reduce the risk and hold lasix for 1-2 days Objective - Vital Signs/Intake and Output Vital Signs (last 24 hours): Temp Pulse Resp BP Pulse Ox 97.9 F 60 18 113/75 97 08/31/18 12:00 08/31/18 12:00 08/31/18 12:00 08/31/18 12:00 08/31/18 12:00 - Medications Medications: Current Medications Aspirin (Aspirin Chewable) 81 mg PO DAILY [facility] Last Admin: 08/31/18 08:27 Dose: 81 mg Enoxaparin Sodium (Lovenox) 80 mg SC Q12 [facility]; Protocol Furosemide (Lasix) 20 mg PO DAILY [facility] Last Admin: 08/31/18 08:26 Dose: 20 mg Guaifenesin/Dextromethorphan (Robitussin Dm) 10 ml PO Q4 PRN PRN Reason: Cough Last Admin: 08/30/18 04:36 Dose: 10 ml Sodium Chloride (Sodium Chloride 0.9%) 1,000 mls @ 100 mls/hr IV .Q10H [facility] Stop: 09/01/18 04:14 Last Admin: 08/31/18 08:57 Dose: 100 mls/hr Pantoprazole Sodium (Protonix Ec Tab) 40 mg PO DAILY [facility] Last Admin: 08/31/18 08:26 Dose: 40 mg Potassium Chloride (K-Dur 20 Meq Er Tab) 20 meq PO BID [facility] Last Admin: 08/30/18 09:38 Dose: 20 meq Fluticasone/Salmeterol (Advair Diskus 500/50) 1 puff IH Q12 [facility] Last Admin: 08/31/18 08:25 Dose: 1 puff Tiotropium [place] (Spiriva) 18 mcg INH DAILY [facility] Last Admin: 08/31/18 08:26 Dose: 18 mcg - Labs Labs: 08/31/18 04:25 08/31/18 04:25 PT 17.3 Seconds (9.8-13.1) H 08/30/18 14:32 INR 1.5 08/30/18 14:32 APTT 25.1 Seconds (25.6-37.1) L 08/30/18 14:32
--- NOTE | 2018-08-31 16:48 | PN ---
DATE: 08/31/2018 SUBJECTIVE: The patient denies any chest pain or dizziness. PHYSICAL EXAMINATION: VITAL SIGNS: Blood pressure 137/83, heart rate 68, temperature 99.2, and respirations 18. HEENT: Left facial bruising related to his recent fall at home. NECK: No JVD. CHEST: Clear. HEART: S1 and S2 irregular. EXTREMITIES: No edema. LABORATORY DATA: Today's hemoglobin and hematocrit, white count, and platelet count are within normal limits. Today's BUN and creatinine are 42 and 1.[address] scan showed no acute intracranial hemorrhage, [id number] chronic white matter ischemic changes with few scattered chronic bilateral basal nuclei lacunar-type infarcts. ASSESSMENT: 1. Borderline troponin elevation, rule out non-ST elevation myocardial infarction. 2. Heroin abuse. 3. Improved renal insufficiency. RECOMMENDATIONS: Continue aspirin 81 mg once a day, Lasix 20 mg twice a day, therapeutic subcutaneous Lovenox 80 mg twice a day. The patient is scheduled for a cardiac catheterization tomorrow around [facility] [place] in [facility]; however, he stated to me that he wants to go home today an not to have the test done and that will be discussed with the primary physician. Valeriano Mitchell MD
[2018-09-01 06:03] LABS: BLOOD UREA NITROGEN 33 mg/dl (9-20); CALCIUM 8.8 mg/dL (8.4-10.2); GFR NON-AFRICAN AMERICAN > 60
[2018-09-01] MEDS: Fluticasone-Salmeterol 500-50mcg Diskus IH SCH ×2 (09:03→22:18)
[2018-09-01] MEDS: Pantoprazole 40 mg EC Tab PO SCH (09:06)
[2018-09-01] MEDS: Tiotropium 18 mcg Cap For Inhalation INH SCH (09:06)
[2018-09-01] MEDS ORDERED: Potassium Chloride 20 mEq ER Tab PO ONE (12:05)
--- NOTE | 2018-09-01 16:26 | CP.PCM.PN ---
<Wen Dahl - Last Filed: 09/01/18 16:21> Subjective - Date & Time of Evaluation Date of Evaluation: 09/01/18 Time of Evaluation: 09:00 (pt not seen as he was at [facility]) - Subjective Subjective: Pt not seen this am; left to get cath at [facility]. Chart review - no overnight events, vital signs stable. Objective - Vital Signs/Intake and Output Vital Signs (last 24 hours): Temp Pulse Resp BP Pulse Ox 99 F 79 20 155/95 H 99 09/01/18 05:00 09/01/18 05:00 09/01/18 05:00 09/01/18 05:00 09/01/18 05:00 - Medications Medications: Current Medications Aspirin (Aspirin Chewable) 81 mg PO DAILY [facility] Last Admin: 09/01/18 09:03 Dose: Not Given Furosemide (Lasix) 20 mg PO DAILY [facility] Last Admin: 09/01/18 09:05 Dose: Not Given Guaifenesin/Dextromethorphan (Robitussin Dm) 10 ml PO Q4 PRN PRN Reason: Cough Last Admin: 08/30/18 04:36 Dose: 10 ml Pantoprazole Sodium (Protonix Ec Tab) 40 mg PO DAILY [facility] Last Admin: 09/01/18 09:06 Dose: Not Given Potassium Chloride (K-Dur 20 Meq Er Tab) 20 meq PO BID [facility] Last Admin: 08/30/18 09:38 Dose: 20 meq Fluticasone/Salmeterol (Advair Diskus 500/50) 1 puff IH Q12 [facility] Last Admin: 09/01/18 09:03 Dose: Not Given Sodium Bicarbonate (Sodium Bicarbonate Tab) 650 mg PO BID [facility] Stop: 09/08/18 12:16 Last Admin: 09/01/18 15:12 Dose: Not Given Tiotropium [place] (Spiriva) 18 mcg INH DAILY [facility] Last Admin: 09/01/18 09:06 Dose: Not Given - Labs Labs: 08/31/18 04:25 09/01/18 04:30 PT 17.3 Seconds (9.8-13.1) H 08/30/18 14:32 INR 1.5 08/30/18 14:32 APTT 25.1 Seconds (25.6-37.1) L 08/30/18 14:32 Assessment and Plan - Assessment and Plan (Free Text) Assessment: 77 yo male patient with PMH of A-fib, CAD, CHF, COPD, HTN and drug abuse admitted with FEDE and altered mental status after sniffing heroin. Found to have elevated CPK and FEDE - renal function recovering (Cr down to 1.1 from 3.5 on admission, has underlying CKD with baseline in mid 1s). Found to have elevated troponins - cardiac cath today at [facility]. Plan: Acute Kidney Injury on CKD - Likely due to hypovolemia and dehydration - Improving, Cr 1.1; baseline 1.5-1.6 - Nephrology on board - hold BEVERLY/ARB - Gentle hydration Acute on chronic heart failure, unspecified type - Hx of CAD/Afib - CXR: increased pulmonary congestion - Lasix 20 mg daily - Normally eliquis 2.5mg BID for AFib; held last 2 days - New echo: EF 50-55%, mild concentric LVH, systolic function low-normal, A-fib (thus cannot assess left ventricular diastolic function), PPM lead visible - Cardiology consult: Dr Mitchell - rec aspirin, cath Troponin Elevation - Discussed case with Cardio - cardiac cath today COPD - Chronic, stable - Home meds resumed Leukocytosis -Resolved Hypokalemia - 3.3 on this am labs; repeat after pt returns from cath; supplement as needed Heroin use - Urine drug positive for opiates Prophylaxis - Normally eliquis 2.5mg BID for AFib; held last 2 days for cath today - Lovenox held this am <Parvez Arellano D - Last Filed: 09/01/18 17:40> Objective - Vital Signs/Intake and Output Vital Signs (last 24 hours): Temp Pulse Resp BP Pulse Ox 99 F 79 20 155/95 H 99 09/01/18 05:00 09/01/18 05:00 09/01/18 05:00 09/01/18 05:00 09/01/18 05:00 - Medications Medications: Current Medications Aspirin (Aspirin Chewable) 81 mg PO DAILY [facility] Last Admin: 09/01/18 09:03 Dose: Not Given Furosemide (Lasix) 20 mg PO DAILY [facility] Last Admin: 09/01/18 09:05 Dose: Not Given Guaifenesin/Dextromethorphan (Robitussin Dm) 10 ml PO Q4 PRN PRN Reason: Cough Last Admin: 08/30/18 04:36 Dose: 10 ml Pantoprazole Sodium (Protonix Ec Tab) 40 mg PO DAILY [facility] Last Admin: 09/01/18 09:06 Dose: Not Given Potassium Chloride (K-Dur 20 Meq Er Tab) 20 meq PO BID [facility] Last Admin: 08/30/18 09:38 Dose: 20 meq Fluticasone/Salmeterol (Advair Diskus 500/50) 1 puff IH Q12 [facility] Last Admin: 09/01/18 09:03 Dose: Not Given Sodium Bicarbonate (Sodium Bicarbonate Tab) 650 mg PO BID [facility] Stop: 09/08/18 12:16 Last Admin: 09/01/18 15:12 Dose: Not Given Tiotropium [place] (Spiriva) 18 mcg INH DAILY [facility] Last Admin: 09/01/18 09:06 Dose: Not Given - Labs Labs: 08/31/18 04:25 09/01/18 04:30 PT 17.3 Seconds (9.8-13.1) H 08/30/18 14:32 INR 1.5 08/30/18 14:32 APTT 25.1 Seconds (25.6-37.1) L 08/30/18 14:32 Attending/Attestation - Attestation I have personally seen and examined this patient.: Yes I have fully participated in the care of the patient.: Yes I have reviewed all pertinent clinical information, including history, physical exam and plan: Yes Notes (Text): 09/01/18 17:38 Patient not seen today since he was brought to [facility] for cardiac cath early this morning.
[2018-09-02 00:47] VITALS: O2SAT 98
[2018-09-02 05:51] LABS: BLOOD UREA NITROGEN 28 mg/dl (9-20); CALCIUM 8.4 mg/dL (8.4-10.2); GFR NON-AFRICAN AMERICAN > 60
[2018-09-02 07:49] VITALS: BP 126/82; RESP 18; TEMP 98.5
[2018-09-02] MEDS: Fluticasone-Salmeterol 500-50mcg Diskus IH SCH (09:08)
[2018-09-02] MEDS: Tiotropium 18 mcg Cap For Inhalation INH SCH (09:08)
[2018-09-02] MEDS: Pantoprazole 40 mg EC Tab PO SCH (09:09)
[2018-09-02 10:41] VITALS: PULSE 82
--- NOTE | 2018-09-02 11:28 | CP.PCM.DIS ---
<ShinetigrenormWen - Last Filed: 09/02/18 11:23> Provider - Provider Date of Admission: 08/27/18 17:00 Attending physician: Parvez Arellano MD Primary care physician: Dr. Diane Consults: 08/27/18 17:26 Nephrology Consult Stat Comment: Consulting Provider: Gregoria Peraza Consulting Physician: Gregoria Peraza Reason for Consult: acute renal failure 08/28/18 07:34 Cardiology Consult Routine Comment: Consulting Provider: Valeriano Mitchell Consulting Physician: Valeriano Mitchell Reason for Consult: Troponins, ProBnp elevation 08/28/18 08:00 Social Work Referral Routine Comment: ROUTINE Physician Instructions: Reason For Exam: ROUTINE Time Spent in preparation of Discharge (in minutes): 25 Diagnosis - Discharge Diagnosis (1) Elevated troponin Status: Acute (2) Atrial fibrillation Status: Chronic (3) FEDE (acute kidney injury) Status: Resolved (4) COPD (chronic obstructive pulmonary disease) Status: Chronic (5) Heroin use Status: Acute Hospital Course - Lab Results Lab Results: Micro Results 08/28/18 13:41 Blood-Venous Blood Culture - Preliminary NO GROWTH AFTER 4 DAYS 08/28/18 18:38 Nose MRSA Culture (Admit) - Final MRSA NOT DETECTED 08/27/18 05:00 Naris MRSA Culture (Admit) - Final MRSA NOT DETECTED Most Recent Lab Values WBC 7.6 K/uL (4.8-10.8) 08/31/18 04:25 RBC 4.48 Mil/uL (4.40-5.90) 08/31/18 04:25 Hgb 14.7 g/dL (12.0-18.0) 08/31/18 04:25 Hct 43.7 % (35.0-51.0) 08/31/18 04:25 MCV 97.5 fl (80.0-94.0) H 08/31/18 04:25 MCH 32.8 pg (27.0-31.0) H 08/31/18 04:25 MCHC 33.7 g/dL (33.0-37.0) 08/31/18 04:25 RDW 14.0 % (11.5-14.5) 08/31/18 04:25 Plt Count 132 K/uL (130-400) 08/31/18 04:25 MPV 10.5 fl (7.2-11.7) 08/30/18 04:30 Neut % (Auto) 73.9 % (50.0-75.0) 08/30/18 04:30 Lymph % (Auto) 13.5 % (20.0-40.0) L 08/30/18 04:30 [place] % (Auto) 11.9 % (0.0-10.0) H 08/30/18 04:30 Eos % (Auto) 0.6 % (0.0-4.0) 08/30/18 04:30 Baso % (Auto) 0.1 % (0.0-2.0) 08/30/18 04:30 Neut # (Auto) 4.5 K/uL (1.8-7.0) 08/30/18 04:30 Lymph # (Auto) 0.8 K/uL (1.0-4.3) L 08/30/18 04:30 [place] # (Auto) 0.7 K/uL (0.0-0.8) 08/30/18 04:30 Eos # (Auto) 0.0 K/uL (0.0-0.7) 08/30/18 04:30 Baso # (Auto) 0.0 K/uL (0.0-0.2) 08/30/18 04:30 Neutrophils % (Manual) 82 % (42-75) H 08/27/18 15:25 Band Neutrophils % 6 % (0-2) H 08/27/18 15:25 Lymphocytes % (Manual) 5 % (20-50) L 08/27/18 15:25 Reactive Lymphs % 2 % (0-0) H 08/27/18 15:25 Monocytes % (Manual) 5 % (0-10) 08/27/18 15:25 Platelet Estimate Slightly decreased (NORMAL) L 08/27/18 15:25 PT 17.3 Seconds (9.8-13.1) H 08/30/18 14:32 INR 1.5 08/30/18 14:32 APTT 25.1 Seconds (25.6-37.1) L 08/30/18 14:32 Sodium 138 mmol/l (132-148) 09/02/18 04:30 Potassium 3.6 MMOL/L (3.6-5.0) 09/02/18 04:30 Chloride 108 mmol/L (98-107) H 09/02/18 04:30 Carbon Dioxide 21 mmol/L (22-30) L 09/02/18 04:30 Anion Gap 13 (10-20) 09/02/18 04:30 BUN 28 mg/dl (9-20) H 09/02/18 04:30 Creatinine 1.0 mg/dl (0.8-1.5) 09/02/18 04:30 Est GFR ( Amer) > 60 09/02/18 04:30 Est GFR (Non-Af Amer) > 60 09/02/18 04:30 POC Glucose (mg/dL) 102 mg/dL (65-110) 08/27/18 14:52 Random Glucose 100 mg/dL (75-110) 09/02/18 04:30 Calcium 8.4 mg/dL (8.4-10.2) 09/02/18 04:30 Phosphorus 2.2 mg/dl (2.5-4.5) L 08/30/18 04:30 Magnesium 1.8 MG/DL (1.6-2.3) 08/30/18 04:30 Total Bilirubin 1.7 mg/dl (0.2-1.3) H 08/30/18 04:30 AST 170 U/L (17-59) H D 08/30/18 04:30 ALT 124 U/L (21-72) H D 08/30/18 04:30 Alkaline Phosphatase 95 U/L (38-126) 08/30/18 04:30 Total Creatine Kinase 8710 U/L (55-170) H 08/28/18 04:41 CK-MB (Mass) 72.0 ng/mL (0.0-3.38) H 08/27/18 17:30 Troponin I 0.1300 ng/mL (0.00-0.120) H* 08/28/18 04:41 NT-Pro-B Natriuret Pep 7020 pg/ml (0-900) H 08/28/18 04:41 Total Protein 6.6 G/DL (6.3-8.2) 08/30/18 04:30 Albumin 3.3 g/dL (3.5-5.0) L 08/30/18 04:30 Globulin 3.3 gm/dL (2.2-3.9) 08/30/18 04:30 Albumin/Globulin Ratio 1.0 (1.0-2.1) 08/30/18 04:30 Triglycerides 150 mg/DL (0-149) H 08/28/18 04:41 Cholesterol 89 mg/dL (0-199) 08/28/18 04:41 LDL Cholesterol Direct 44 mg/dL (0-129) 08/28/18 04:41 HDL Cholesterol 26 MG/DL (30-70) L 08/28/18 04:41 Urine Color Yellow (YELLOW) 08/27/18 17:52 Urine Clarity Slighty-cloudy (Clear) 08/27/18 17:52 Urine pH 5.0 (5.0-8.0) 08/27/18 17:52 Ur Specific [place] 1.018 (1.003-1.030) 08/27/18 17:52 Urine Protein 30 mg/dL (NEGATIVE) 08/27/18 17:52 Urine Glucose (UA) Neg mg/dL (NEGATIVE) 08/27/18 17:52 Urine Ketones Negative mg/dL (NEGATIVE) 08/27/18 17:52 Urine Blood Small (NEGATIVE) 08/27/18 17:52 Urine Nitrate Negative (NEGATIVE) 08/27/18 17:52 Urine Bilirubin Negative (NEGATIVE) 08/27/18 17:52 Urine Urobilinogen 0.2-1.0 mg/dL (0.2-1.0) 08/27/18 17:52 Ur Leukocyte Esterase Neg Osmany/uL (Negative) 08/27/18 17:52 Urine RBC (Auto) 2 /hpf (0-3) 08/27/18 17:52 Urine Microscopic WBC 1 /hpf (0-5) 08/27/18 17:52 Ur Squamous Epith Cells 1 /hpf (0-5) 08/27/18 17:52 Hyaline Casts 3-5 /hpf (0-2) H 08/27/18 17:52 Ur Random Creatinine 62.2 mg/dL 08/29/18 19:00 U Random Total Protein 9.0 mg/dL (0.0-12.0) 08/29/18 19:24 Salicylates < 1.0 mg/dl 08/27/18 15:25 Urine Opiates Screen Positive (NEGATIVE) H 08/27/18 17:52 Urine Methadone Screen Negative (NEGATIVE) 08/27/18 17:52 Acetaminophen < 10.0 ug/ml (10.0-30.0) L 08/27/18 15:25 Ur Barbiturates Screen Negative (NEGATIVE) 08/27/18 17:52 Ur Phencyclidine Scrn Negative (NEGATIVE) 08/27/18 17:52 Ur Amphetamines Screen Negative (NEGATIVE) 08/27/18 17:52 U Benzodiazepines Scrn Positive (NEGATIVE) 08/27/18 17:52 U Oth Cocaine Metabols Negative (NEGATIVE) 08/27/18 17:52 U Cannabinoids Screen Negative (NEGATIVE) 08/27/18 17:52 Alcohol, Quantitative < 10 mg/dl (0-10) 08/27/18 15:25 Influenza Typ A,B (EIA) Negative for flu a/b (NEGATIVE) 08/28/18 08:50 - Hospital Course Hospital Course: 77 yo male patient with PMH of A-fib, CAD, CHF, COPD, HTN and drug abuse admitted with FEDE and altered mental status after sniffing heroin several days prior to admission. Mental status changes resolved with hydration. Found to have elevated CPK and FEDE, but renal function recovered and Cr trended down from 3.5 on admission to 1.0 today. Cardiology was consulted - Dr. Mitchell recommended cardiac cath - pt underwent cath yesterday at [facility] - found to have insufficient proximal and mild left anterior descending disease and normal left ventricular systolic function; advised to continue current management, including eliquis for a-fib. Overall pt's condition improved, he has been eating, voiding, stooling w/o difficulty. Ambulated with PT. Pt seen this am, reports feeling good, no acute distress. No hematoma at site of cath. Discussed with pt that it is in his best interest to stop drinking and using drugs, and that he can have serious negative consequences to his organs (kidney, heart, liver) and life if he does not stop; pt stated he understood. Will be d/c with script for eliquis 2.5 mg for a-fib anticoag; should f/u with PMD Dr. Diane within 10 days. Discharge Exam - Head Exam Head Exam: NORMAL INSPECTION - Eye Exam Eye Exam: Normal appearance - Neck Exam Neck exam: Full Rom - Respiratory Exam Respiratory Exam: NORMAL BREATHING PATTERN, UNREMARKABLE - Cardiovascular Exam Cardiovascular Exam: REGULAR RHYTHM - GI/Abdominal Exam GI & Abdominal Exam: Normal Bowel Sounds, Soft - Extremities Exam Extremities exam: normal inspection Additional comments: no hematoma or swelling at site of cath in R groin - Back Exam Back exam: NORMAL INSPECTION - Neurological Exam Neurological exam: Alert - Skin Skin Exam: Dry, Normal Color, Warm Discharge Plan - Discharge Medications Prescriptions: Apixaban [Eliquis] 2.5 mg PO DAILY #20 tablet - Follow Up Plan Condition: FAIR Disposition: HOME/ ROUTINE Instructions: Dehydration, Adult (DC), Altered Mental Status (DC) Additional Instructions: Follow up with PMD Dr. Diane in 1 week Follow up with corporate librarian Dr. Mitchell in 1-2 weeks Return to ED if you have chest pain, shortness of breath, or acute change in condition Referrals: Jessica Diane MD [Staff Provider] - Valeriano Mitchell MD [Staff Provider] - <Parvez Arellano - Last Filed: 09/02/18 12:44> Provider - Provider Date of Admission: 08/27/18 17:00 Attending physician: Parvez Arellano MD Consults: 08/27/18 17:26 Nephrology Consult Stat Comment: Consulting Provider: Gregoria Peraza Consulting Physician: Gregoria Peraza Reason for Consult: acute renal failure 08/28/18 07:34 Cardiology Consult Routine Comment: Consulting Provider: Valeriano Mitchell Consulting Physician: Valeriano Mitchell Reason for Consult: Troponins, ProBnp elevation 08/28/18 08:00 Social Work Referral Routine Comment: ROUTINE Physician Instructions: Reason For Exam: ROUTINE Hospital Course - Lab Results Lab Results: Micro Results 08/28/18 13:41 Blood-Venous Blood Culture - Preliminary NO GROWTH AFTER 4 DAYS 08/28/18 18:38 Nose MRSA Culture (Admit) - Final MRSA NOT DETECTED 08/27/18 05:00 Naris MRSA Culture (Admit) - Final MRSA NOT DETECTED Most Recent Lab Values WBC 7.6 K/uL (4.8-10.8) 08/31/18 04:25 RBC 4.48 Mil/uL (4.40-5.90) 08/31/18 04:25 Hgb 14.7 g/dL (12.0-18.0) 08/31/18 04:25 Hct 43.7 % (35.0-51.0) 08/31/18 04:25 MCV 97.5 fl (80.0-94.0) H 08/31/18 04:25 MCH 32.8 pg (27.0-31.0) H 08/31/18 04:25 MCHC 33.7 g/dL (33.0-37.0) 08/31/18 04:25 RDW 14.0 % (11.5-14.5) 08/31/18 04:25 Plt Count 132 K/uL (130-400) 08/31/18 04:25 MPV 10.5 fl (7.2-11.7) 08/30/18 04:30 Neut % (Auto) 73.9 % (50.0-75.0) 08/30/18 04:30 Lymph % (Auto) 13.5 % (20.0-40.0) L 08/30/18 04:30 [place] % (Auto) 11.9 % (0.0-10.0) H 08/30/18 04:30 Eos % (Auto) 0.6 % (0.0-4.0) 08/30/18 04:30 Baso % (Auto) 0.1 % (0.0-2.0) 08/30/18 04:30 Neut # (Auto) 4.5 K/uL (1.8-7.0) 08/30/18 04:30 Lymph # (Auto) 0.8 K/uL (1.0-4.3) L 08/30/18 04:30 [place] # (Auto) 0.7 K/uL (0.0-0.8) 08/30/18 04:30 Eos # (Auto) 0.0 K/uL (0.0-0.7) 08/30/18 04:30 Baso # (Auto) 0.0 K/uL (0.0-0.2) 08/30/18 04:30 Neutrophils % (Manual) 82 % (42-75) H 08/27/18 15:25 Band Neutrophils % 6 % (0-2) H 08/27/18 15:25 Lymphocytes % (Manual) 5 % (20-50) L 08/27/18 15:25 Reactive Lymphs % 2 % (0-0) H 08/27/18 15:25 Monocytes % (Manual) 5 % (0-10) 08/27/18 15:25 Platelet Estimate Slightly decreased (NORMAL) L 08/27/18 15:25 PT 17.3 Seconds (9.8-13.1) H 08/30/18 14:32 INR 1.5 08/30/18 14:32 APTT 25.1 Seconds (25.6-37.1) L 08/30/18 14:32 Sodium 138 mmol/l (132-148) 09/02/18 04:30 Potassium 3.6 MMOL/L (3.6-5.0) 09/02/18 04:30 Chloride 108 mmol/L (98-107) H 09/02/18 04:30 Carbon Dioxide 21 mmol/L (22-30) L 09/02/18 04:30 Anion Gap 13 (10-20) 09/02/18 04:30 BUN 28 mg/dl (9-20) H 09/02/18 04:30 Creatinine 1.0 mg/dl (0.8-1.5) 09/02/18 04:30 Est GFR ( Amer) > 60 09/02/18 04:30 Est GFR (Non-Af Amer) > 60 09/02/18 04:30 POC Glucose (mg/dL) 102 mg/dL (65-110) 08/27/18 14:52 Random Glucose 100 mg/dL (75-110) 09/02/18 04:30 Calcium 8.4 mg/dL (8.4-10.2) 09/02/18 04:30 Phosphorus 2.2 mg/dl (2.5-4.5) L 08/30/18 04:30 Magnesium 1.8 MG/DL (1.6-2.3) 08/30/18 04:30 Total Bilirubin 1.7 mg/dl (0.2-1.3) H 08/30/18 04:30 AST 170 U/L (17-59) H D 08/30/18 04:30 ALT 124 U/L (21-72) H D 08/30/18 04:30 Alkaline Phosphatase 95 U/L (38-126) 08/30/18 04:30 Total Creatine Kinase 8710 U/L (55-170) H 08/28/18 04:41 CK-MB (Mass) 72.0 ng/mL (0.0-3.38) H 08/27/18 17:30 Troponin I 0.1300 ng/mL (0.00-0.120) H* 08/28/18 04:41 NT-Pro-B Natriuret Pep 7020 pg/ml (0-900) H 08/28/18 04:41 Total Protein 6.6 G/DL (6.3-8.2) 08/30/18 04:30 Albumin 3.3 g/dL (3.5-5.0) L 08/30/18 04:30 Globulin 3.3 gm/dL (2.2-3.9) 08/30/18 04:30 Albumin/Globulin Ratio 1.0 (1.0-2.1) 08/30/18 04:30 Triglycerides 150 mg/DL (0-149) H 08/28/18 04:41 Cholesterol 89 mg/dL (0-199) 08/28/18 04:41 LDL Cholesterol Direct 44 mg/dL (0-129) 08/28/18 04:41 HDL Cholesterol 26 MG/DL (30-70) L 08/28/18 04:41 Urine Color Yellow (YELLOW) 08/27/18 17:52 Urine Clarity Slighty-cloudy (Clear) 08/27/18 17:52 Urine pH 5.0 (5.0-8.0) 08/27/18 17:52 Ur Specific [place] 1.018 (1.003-1.030) 08/27/18 17:52 Urine Protein 30 mg/dL (NEGATIVE) 08/27/18 17:52 Urine Glucose (UA) Neg mg/dL (NEGATIVE) 08/27/18 17:52 Urine Ketones Negative mg/dL (NEGATIVE) 08/27/18 17:52 Urine Blood Small (NEGATIVE) 08/27/18 17:52 Urine Nitrate Negative (NEGATIVE) 08/27/18 17:52 Urine Bilirubin Negative (NEGATIVE) 08/27/18 17:52 Urine Urobilinogen 0.2-1.0 mg/dL (0.2-1.0) 08/27/18 17:52 Ur Leukocyte Esterase Neg Osmany/uL (Negative) 08/27/18 17:52 Urine RBC (Auto) 2 /hpf (0-3) 08/27/18 17:52 Urine Microscopic WBC 1 /hpf (0-5) 08/27/18 17:52 Ur Squamous Epith Cells 1 /hpf (0-5) 08/27/18 17:52 Hyaline Casts 3-5 /hpf (0-2) H 08/27/18 17:52 Ur Random Creatinine 62.2 mg/dL 08/29/18 19:00 U Random Total Protein 9.0 mg/dL (0.0-12.0) 08/29/18 19:24 Salicylates < 1.0 mg/dl 08/27/18 15:25 Urine Opiates Screen Positive (NEGATIVE) H 08/27/18 17:52 Urine Methadone Screen Negative (NEGATIVE) 08/27/18 17:52 Acetaminophen < 10.0 ug/ml (10.0-30.0) L 08/27/18 15:25 Ur Barbiturates Screen Negative (NEGATIVE) 08/27/18 17:52 Ur Phencyclidine Scrn Negative (NEGATIVE) 08/27/18 17:52 Ur Amphetamines Screen Negative (NEGATIVE) 08/27/18 17:52 U Benzodiazepines Scrn Positive (NEGATIVE) 08/27/18 17:52 U Oth Cocaine Metabols Negative (NEGATIVE) 08/27/18 17:52 U Cannabinoids Screen Negative (NEGATIVE) 08/27/18 17:52 Alcohol, Quantitative < 10 mg/dl (0-10) 08/27/18 15:25 Influenza Typ A,B (EIA) Negative for flu a/b (NEGATIVE) 08/28/18 08:50 Attending/Attestation - Attestation I have personally seen and examined this patient.: Yes I have fully participated in the care of the patient.: Yes I have reviewed all pertinent clinical information, including history, physical exam and plan: Yes Notes (Text): 09/02/18 12:43 Patient seen and examined with resident. Case discussed and agreed with assessment and plan.
== END 2018-09-02 11:30 | disposition home or self-care (01) | DRG 682 ==
LOC: H.ER 14:30 → H.ERHOLD 17:00 → H.ICU/CCU 18:55 → H.TEL 08-28 18:31
PROC: 4A023N8 Measurement of Cardiac Sampling and Pressure, Bilateral, Percutaneous Approach (ICD-10-PCS; principal; 2018-09-01)
PROC: B206YZZ Plain Radiography of Right and Left Heart using Other Contrast (ICD-10-PCS; 2018-09-01)
DX: N17.9 Acute kidney failure, unspecified (principal); G92 Toxic encephalopathy; I13.0 Hypertensive heart and chronic kidney disease with heart failure and stage 1 through stage 4 chronic kidney disease, or unspecified chronic kidney disease; I24.8 Other forms of acute ischemic heart disease; D64.9 Anemia, unspecified; N18.3 Chronic kidney disease, stage 3 (moderate); R32 Unspecified urinary incontinence; Z79.01 Long term (current) use of anticoagulants; Z79.02 Long term (current) use of antithrombotics/antiplatelets; Z95.0 Presence of cardiac pacemaker; Z86.19 Personal history of other infectious and parasitic diseases; Z79.899 Other long term (current) drug therapy; R74.8 Abnormal levels of other serum enzymes; D69.6 Thrombocytopenia, unspecified; E11.22 Type 2 diabetes mellitus with diabetic chronic kidney disease; E86.0 Dehydration; E87.6 Hypokalemia; F11.10 Opioid abuse, uncomplicated; F14.90 Cocaine use, unspecified, uncomplicated; F17.210 Nicotine dependence, cigarettes, uncomplicated; I25.10 Atherosclerotic heart disease of native coronary artery without angina pectoris; I48.2 Chronic atrial fibrillation; I50.9 Heart failure, unspecified; J44.9 Chronic obstructive pulmonary disease, unspecified

== ENCOUNTER 2019-01-02 07:59 | Inpatient (IN) | payer MEDICARE, MEDICAID ==
--- NOTE | 2019-01-02 09:18 | ED PDOC ---
Lower Extremity Pain/Injury Time Seen by Provider: 01/02/19 08:00 Chief Complaint (Nursing): Lower Extremity Problem/Injury Chief Complaint (Provider): Lower Extremity Problem/Injury History Per: Patient History/Exam Limitations: other (uncooperative) Onset/Duration Of Symptoms: Days (x3) Current Symptoms Are (Timing): Still Present Additional Complaint(s): 78 year old male arrives to the emergency department for an evaluation of persistent bilateral leg pain for 3 days. History is limited secondary to patient not answering questions. Charts from previous visits reviewed. Patient has history of heroin use, Afib, COPD, HTN, and assisted by walker for gait stability. No further medical complaints offered. PCP: none provided Past Medical History Reviewed: Nursing Documentation, Vital Signs Vital Signs: Last Vital Signs Temp 99.6 F 01/02/19 08:02 Pulse 79 01/02/19 08:02 Resp 18 01/02/19 08:02 BP 176/91 H 01/02/19 08:02 Pulse Ox 98 01/02/19 08:06 Primary Care Provider: FAMILY PROVIDER,NO - Medical History PMH: Asthma, Atrial Fibrillation, Back Problems, CAD, CHF, COPD, HTN Denies: HIV, Chronic Kidney Disease - Surgical History Surgical History: Pacemaker - Family History Family History: States: Unknown Family Hx - Social History Current smoker - smoking cessation education provided: Yes Alcohol: None Drugs: Opiates - Home Medications Home Medications: Ambulatory Orders Medication Instructions Recorded Albuterol HFA [Ventolin HFA 90 2 puff IH Q6 PRN 01/02/19 mcg/actuation (8 g)] Alprazolam [Xanax] 2 mg PO Q8 PRN 01/02/19 Aspirin [Ecotrin] 81 mg PO DAILY 01/02/19 Lisinopril/Hydrochlorothiazide 1 tab PO DAILY 01/02/19 [Lisinopril-Hctz 20-25 mg Tab] Oxycodone HCl/Acetaminophen 1 tab PO Q6 PRN 01/02/19 [Percocet 10-325 mg Tablet] - Allergies Allergies/Adverse Reactions: Allergies Allergy/AdvReac Type Severity Reaction Status Date / Time No Known Allergies Allergy Verified 01/02/19 08:05 Review of Systems Review Of Systems: ROS cannot be obtained secondary to pt's inabilty to answer questions. Physical Exam - Reviewed Nursing Documentation Reviewed: Yes Vital Signs Reviewed: Yes - Physical Exam Appears: Positive for: Non-toxic, No Acute Distress (poor hygiene) Skin: Positive for: Normal Color Eye Exam: Positive for: Normal appearance ENT: Positive for: Normal ENT Inspection Neck: Positive for: Normal Cardiovascular/Chest: Positive for: Regular Rate, Rhythm Respiratory: Positive for: Normal Breath Sounds. Negative for: Respiratory Distress Pulses-Dorsalis Pedis (L): 2+ Pulses-Dorsalis Pedis (R): 2+ Gastrointestinal/Abdominal: Positive for: Normal Exam Extremity: Positive for: Swelling (right knee mildly, r leg warm, not red but swollen. neurovascular intact. 2+ DP , cap refill less than 2 sec). Negative for: Calf Tenderness, Deformity Neurological/Psych: Positive for: Awake, Alert, Mood/Affect (flat). Negative for: Motor/Sensory Deficits - Laboratory Results Result Diagrams: 01/02/19 10:20 01/02/19 10:20 - ECG O2 Sat by Pulse Oximetry: 98 (RA) Pulse Ox Interpretation: Normal Medical Decision Making Medical Decision Making: Time: 829 Initial Plan: LE leg pain rule out dvt, fracture, cellulitis * Labs * Accucheck * US duplex LE 1220 US Duplex Bilateral lower extremities FINDINGS: COMMON FEMORAL VEIN: Right CFV: Unremarkable. Left CFV: Unremarkable. SUPERFICIAL FEMORAL VEIN: Right SFV: Unremarkable. Left SFV: Unremarkable. POPLITEAL VEIN: Right Popliteal: Unremarkable. Left Popliteal: Unremarkable. POSTERIOR TIBIAL VEIN: Right PTV: Unremarkable. Left PTV: Unremarkable. OTHER FINDINGS: None. IMPRESSION: No evidence of deep venous thrombosis. pt noted vitals, no fever or tachycardia 1425 Labs reviewed patient with elevated white count at 13.0 On reassessment, patient with persistent swelling to right knee which is still hot to touch. no erythema noted. Patient to be admitted under medical service due to cellulitis of right knee. abx ordered. xrays noted to have suprapatellar effusion of R knee [address] Santos, who accepts patient for admission. - Scribe Attestation: Documented by Salome Meza, acting as a scribe for Violet Saldaña MD Provider Scribe Attestation: All medical record entries made by the Scribe were at my direction and personally dictated by me. I have reviewed the chart and agree that the record accurately reflects my personal performance of the history, physical exam, medical decision making, and the department course for this patient. I have also personally directed, reviewed, and agree with the discharge Disposition - Clinical Impression Clinical Impression: Cellulitis of lower extremity - Patient ED Disposition Is Patient to be Admitted: Yes Counseled Patient/Family Regarding: Studies Performed, Diagnosis - Disposition Disposition Time: 14:38 Condition: STABLE
[2019-01-02 10:26] LABS: BASO # 0.1 K/uL (0.0-0.2); BASO % 0.7 % (0.0-2.0); EOS % 0.1 % (0.0-4.0); HEMOGLOBIN 15.6 g/dL (12.0-18.0); MEAN CELL VOLUME 95.9 fl (80.0-94.0); MEAN CORPUSCULAR HEMOGLOBIN 32.5 pg (27.0-31.0); MEAN CORPUSCULAR HGB CONC 33.9 g/dL (33.0-37.0); MEAN PLATELET VOLUME 9.4 fl (7.2-11.7); MONO # 1.5 K/uL (0.0-0.8); MONO % 11.7 % (0.0-10.0); NEUT # 10.3 K/uL (1.8-7.0); NEUT % 79.5 % (50.0-75.0); NRBC % 0.1 % (0.0-0.0); PLATELET COUNT 198 K/uL (130-400); RBC 4.79 Mil/uL (4.40-5.90); RED CELL DISTRIBUTION WIDTH 13.4 % (11.5-14.5)
[2019-01-02 10:39] LABS: ALB/GLOB RATIO 1.1 (1.0-2.1); ALBUMIN 4.2 g/dL (3.5-5.0); ALT/SGPT 15 U/L (21-72); AST/SGOT 18 U/L (17-59); BLOOD UREA NITROGEN 19 mg/dl (9-20); CALCIUM 9.8 mg/dL (8.4-10.2); GFR NON-AFRICAN AMERICAN 59
[2019-01-02 10:57] LABS: LYMPHOCYTE 8 % (20-50); MONOCYTE 10 % (0-10); NEUTROPHIL 82 % (42-75); TOTAL CELLS COUNTED 100
[2019-01-02 10:58] LABS: PLATELET ESTIMATE NORMAL (NORMAL)
[2019-01-02 11:00] LABS: ANISOCYTOSIS SLIGHT; GIANT PLATELETS PRESENT; LARGE PLATELETS PRESENT; OVALOCYTES SLIGHT; POIKILOCYTOSIS SLIGHT
--- NOTE | 2019-01-02 12:01 | US ---
Date of service: 01/02/2019 PROCEDURE: Bilateral lower extremity venous duplex Doppler. HISTORY: leg pain COMPARISON: None available. TECHNIQUE: Bilateral common femoral, superficial femoral, popliteal and posterior tibial veins were evaluated. Flow was assessed with color Doppler, compressibility, assessment of phasic flow and augmentation response. FINDINGS: COMMON FEMORAL VEIN: Right CFV: Unremarkable. Left CFV: Unremarkable. SUPERFICIAL FEMORAL VEIN: Right SFV: Unremarkable. Left SFV: Unremarkable. POPLITEAL VEIN: Right Popliteal: Unremarkable. Left Popliteal: Unremarkable. POSTERIOR TIBIAL VEIN: Right PTV: Unremarkable. Left PTV: Unremarkable. OTHER FINDINGS: None. IMPRESSION: No evidence of deep venous thrombosis.
[2019-01-02] MEDS ORDERED: Sodium Chloride 0.9% 1,000 ML IV STA (14:35)
--- NOTE | 2019-01-02 15:15 | RAD ---
Date of service: 01/02/2019 PROCEDURE: Bilateral Knee Radiographs. HISTORY: knee pain COMPARISON: None. TECHNIQUE: 4 views obtained. FINDINGS: BONES: No fracture identified bilaterally. No destructive bony lesion identified. JOINTS: Joint space narrowing, articular cortical sclerosis and osteophyte development are identified in all 3 compartments of the right greater than left knee. The medial right patellofemoral articulation appears the worst affected at the right with the left medial femorotibial compartment also affect the worst at the left knee compartments. SOFT TISSUES: (Exclusive of suprapatellar bursa region) Right Knee: Normal. Left Knee: Normal. JOINT EFFUSION: Effusion identified at right knee. Small suprapatellar bursa effusion present at left knee. OTHER FINDINGS: None. IMPRESSION: Moderate to severe osteoarthritis right knee including large suprapatellar bursa effusion. Moderate left knee osteoarthritis with small suprapatellar bursa effusion. No acute fracture, subluxation or dislocation identified bilaterally.
[2019-01-02 16:17] LABS: VENOUS BLOOD GAS PCO2 40 mmHg (40-60); VENOUS BLOOD GAS PO2 27 mm/Hg (30-55)
[2019-01-02 18:25] LABS: VENOUS BLOOD GAS BASE EXCESS 0.3 mmol/L (0.0-2.0); VENOUS BLOOD GAS PCO2 42 mmHg (40-60); VENOUS BLOOD GAS PO2 24 mm/Hg (30-55); VENOUS BLOOD PH 7.39 (7.32-7.43)
[2019-01-02] MEDS ORDERED: Albuterol HFA 90 mcg/actuation (8 g) IH PRN (20:36)
[2019-01-03 04:11] VITALS: BMI 26.8
[2019-01-03 06:48] LABS: BASO % 0.5 % (0.0-2.0); EOS % 0.1 % (0.0-4.0); HEMOGLOBIN 14.2 g/dL (12.0-18.0); LYMPH # 1.1 K/uL (1.0-4.3); LYMPH % 12.5 % (20.0-40.0); MEAN CELL VOLUME 96.3 fl (80.0-94.0); MEAN CORPUSCULAR HEMOGLOBIN 32.7 pg (27.0-31.0); MEAN PLATELET VOLUME 9.5 fl (7.2-11.7); MONO # 1.1 K/uL (0.0-0.8); MONO % 12.2 % (0.0-10.0); NEUT # 6.8 K/uL (1.8-7.0); NEUT % 74.7 % (50.0-75.0); NRBC % 0.1 % (0.0-0.0); RBC 4.36 Mil/uL (4.40-5.90); RED CELL DISTRIBUTION WIDTH 13.6 % (11.5-14.5); WHITE BLOOD COUNT 9.1 K/uL (4.8-10.8)
[2019-01-03 07:34] LABS: ALB/GLOB RATIO 1.1 (1.0-2.1); ALBUMIN 3.4 g/dL (3.5-5.0); ALT/SGPT 19 U/L (21-72); AST/SGOT 15 U/L (17-59); BLOOD UREA NITROGEN 18 mg/dl (9-20); CALCIUM 8.8 mg/dL (8.4-10.2); GFR NON-AFRICAN AMERICAN > 60; HDL CHOLESTEROL 32 MG/DL (30-70)
[2019-01-03 07:38] LABS: LDL CHOLESTEROL 67 mg/dL (0-129)
[2019-01-03] MEDS ORDERED: Enoxaparin 40 mg Syringe SC SCH (09:00)
[2019-01-03] MEDS ORDERED: Patient's Own Med (Lisinopril/Hydrochlorothiazide [Lisinopril-Hctz 20-25 Mg Tab] 1 TAB) PO SCH (09:00)
[2019-01-03] MEDS ORDERED: Potassium Chloride 20 mEq ER Tab PO ONE (09:09)
--- NOTE | 2019-01-03 09:09 | CP.PCM.HP ---
History of Present Illness - History of Present Illness History of Present Illness: This is 78 y/o male with PMH of Asthma, Atrial Fibrillation, Back Problems, CAD, s/p cardiac cath, CHF, COPD, Osteoaethritis and HTN admitted to [facility] for evaluation and treatment of b/l knee pain/acute bursitis. Patient is a poor historian and noncompliant with medications. Patient reports one week hx of b/l knee pain and swelling. denies any fever, diarrhea, abdominal pain, chest pain or SOB. Patient reports he is not taking any home medications. PMD: Dr. 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 Meds: see jackie CONNOR SH: smoker >10 cig/day, + etoh and heroin/cocaine use, last use 5 days ago Present on Admission - Present on Admission Any Indicators Present on Admission: No Review of Systems - Constitutional Constitutional: absent: Headache - EENT Eyes: absent: Blurred Vision Ears: absent: Dizziness Nose/Mouth/Throat: absent: Nasal Congestion - Cardiovascular Cardiovascular: absent: Chest Pain - Respiratory Respiratory: absent: Cough, Dyspnea, Hemoptysis - Gastrointestinal Gastrointestinal: absent: Abdominal Pain - Genitourinary Genitourinary: absent: Change in Urinary Stream, Dysuria - Musculoskeletal Musculoskeletal: Back Pain, Joint Swelling (b/l knees, + pain ), Stiffness. absent: Numbness, Tingling - Integumentary Integumentary: absent: Bleeding Lesions - Neurological Neurological: absent: Dizziness, Sensory Deficit, Tingling, Tremor, Vertigo, We akness - Psychiatric Psychiatric: absent: Anxiety - Hematologic/Lymphatic Hematologic: absent: Easy Bleeding Past Patient History - Infectious Disease Hx of Infectious Diseases: None - Past Medical History & Family History Past Medical History?: Yes - Past Social History Smoking Status: Never Smoked - CARDIAC Hx Cardiac Disorders: Yes Hx Atrial Fibrillation: Yes Hx Congestive Heart Failure: Yes Hx Hypertension: Yes Hx Pacemaker: Yes - PULMONARY Hx Respiratory Disorders: Yes Hx Asthma: Yes Hx Chronic Obstructive Pulmonary Disease (COPD): Yes - NEUROLOGICAL Hx Neurological Disorder: No - HEENT Hx HEENT Problems: No - RENAL Hx Chronic Kidney Disease: No - ENDOCRINE/METABOLIC Hx Endocrine Disorders: Yes Hx Diabetes Mellitus Type 2: Yes - HEMATOLOGICAL/ONCOLOGICAL Hx Blood Disorders: No Hx Human Immunodeficiency Virus (HIV): No - INTEGUMENTARY Hx Dermatological Problems: Yes Hx Cellulitis: Yes - MUSCULOSKELETAL/RHEUMATOLOGICAL Hx Musculoskeletal Disorders: Yes Hx Falls: No - GASTROINTESTINAL Hx Gastrointestinal Disorders: No - GENITOURINARY/GYNECOLOGICAL Hx Genitourinary Disorders: No - PSYCHIATRIC Hx Psychophysiologic Disorder: Yes Hx Substance Use: Yes - SURGICAL HISTORY Hx Surgeries: Yes Hx Amputation: Yes (R 2nd 3rd 4th fingers) Other/Comment: 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, 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 - ANESTHESIA Hx Anesthesia: Yes Hx Anesthesia Reactions: No Hx Malignant Hyperthermia: No Meds Allergies/Adverse Reactions: Allergies Allergy/AdvReac Type Severity Reaction Status Date / Time No Known Allergies Allergy Verified 01/02/19 08:05 Physical Exam - Constitutional Appears: No Acute Distress - Head Exam Head Exam: NORMAL INSPECTION - Eye Exam Eye Exam: Normal appearance Pupil Exam: NORMAL ACCOMODATION - ENT Exam ENT Exam: Mucous Membranes Moist - Respiratory Exam Respiratory Exam: Clear to Auscultation Bilateral, NORMAL BREATHING PATTERN - Cardiovascular Exam Cardiovascular Exam: Irregular Rhythm, +S1, +S2 - GI/Abdominal Exam GI & Abdominal Exam: Normal Bowel Sounds, Soft. absent: Tenderness - Extremities Exam Extremities exam: Positive for: joint swelling (b/l knees ), tenderness (b/l knees). Negative for: calf tenderness, pedal edema Additional comments: + b/l knee swelling, Fluid accumulation, tenderness and warmth NO erythema neurovascular intact. 2+ DP , cap refill less than 2 sec - Back Exam Back exam: NORMAL INSPECTION. absent: CVA tenderness (L), CVA tenderness (R) - Neurological Exam Neurological exam: Alert, CN II-XII Intact, Oriented x3 - Psychiatric Exam Psychiatric exam: Flat Affect - Skin Skin Exam: Normal Color Results - Vital Signs Recent Vital Signs: Last Vital Signs Temp 98.4 F 01/03/19 07:39 Pulse 74 01/03/19 07:39 Resp 19 01/03/19 07:39 BP 182/94 H 01/03/19 07:39 Pulse Ox 96 01/03/19 07:39 - Labs Result Diagrams: 01/03/19 06:05 01/03/19 06:05 Labs: Laboratory Results - last 24 hr 01/02/19 01/02/19 01/02/19 08:37 10:20 10:20 WBC 13.0 H D RBC 4.79 Hgb 15.6 Hct 46.0 MCV 95.9 H MCH 32.5 H MCHC 33.9 RDW 13.4 Plt Count 198 MPV 9.4 Neut % (Auto) 79.5 H Lymph % (Auto) 8.0 L [place] % (Auto) 11.7 H Eos % (Auto) 0.1 Baso % (Auto) 0.7 Neut # (Auto) 10.3 H Lymph # (Auto) 1.0 [place] # (Auto) 1.5 H Eos # (Auto) 0.0 Baso # (Auto) 0.1 Neutrophils % (Manual) 82 H Lymphocytes % (Manual) 8 L Monocytes % (Manual) 10 Platelet Estimate Normal Large Platelets Present Giant Platelets Present Poikilocytosis (manual Slight Anisocytosis (manual) Slight Ovalocytes Slight pO2 VBG pH VBG pCO2 VBG HCO3 VBG Total CO2 VBG O2 Sat (Calc) VBG Base Excess VBG Potassium Glucose Lactate FiO2 Sodium 140 Potassium 3.8 Chloride 104 Carbon Dioxide 26 Anion Gap 14 BUN 19 Creatinine 1.2 Est GFR ( Amer) > 60 Est GFR (Non-Af Amer) 59 POC Glucose (mg/dL) 168 H Random Glucose 109 Calcium 9.8 Total Bilirubin 1.5 H AST 18 ALT 15 L D Alkaline Phosphatase 95 Total Protein 7.9 Albumin 4.2 Globulin 3.7 Albumin/Globulin Ratio 1.1 Triglycerides Cholesterol LDL Cholesterol Direct HDL Cholesterol Vitamin B12 Venous Blood Potassium 01/02/19 01/02/19 01/03/19 16:11 18:16 06:05 WBC 9.1 RBC 4.36 L Hgb 14.2 Hct 41.9 MCV 96.3 H MCH 32.7 H MCHC 34.0 RDW 13.6 Plt Count 182 MPV 9.5 Neut % (Auto) 74.7 Lymph % (Auto) 12.5 L [place] % (Auto) 12.2 H Eos % (Auto) 0.1 Baso % (Auto) 0.5 Neut # (Auto) 6.8 Lymph # (Auto) 1.1 [place] # (Auto) 1.1 H Eos # (Auto) 0.0 Baso # (Auto) 0.0 Neutrophils % (Manual) Lymphocytes % (Manual) Monocytes % (Manual) Platelet Estimate Large Platelets Giant Platelets Poikilocytosis (manual Anisocytosis (manual) Ovalocytes pO2 27 L 24 L VBG pH 7.40 7.39 VBG pCO2 40 42 VBG HCO3 23.7 23.7 VBG Total CO2 26.0 26.7 VBG O2 Sat (Calc) 56.6 48.2 VBG Base Excess 0.0 0.3 VBG Potassium 3.4 L 3.2 L Glucose 138 H 123 H Lactate 1.4 1.5 FiO2 21.0 21.0 Sodium 138.0 140.0 Potassium Chloride 105.0 107.0 Carbon Dioxide Anion Gap BUN Creatinine Est GFR ( Amer) Est GFR (Non-Af Amer) POC Glucose (mg/dL) Random Glucose Calcium Total Bilirubin AST ALT Alkaline Phosphatase Total Protein Albumin Globulin Albumin/Globulin Ratio Triglycerides Cholesterol LDL Cholesterol Direct HDL Cholesterol Vitamin B12 Venous Blood Potassium 3.4 L 3.2 L 01/03/19 06:05 WBC RBC Hgb Hct MCV MCH MCHC RDW Plt Count MPV Neut % (Auto) Lymph % (Auto) [place] % (Auto) Eos % (Auto) Baso % (Auto) Neut # (Auto) Lymph # (Auto) [place] # (Auto) Eos # (Auto) Baso # (Auto) Neutrophils % (Manual) Lymphocytes % (Manual) Monocytes % (Manual) Platelet Estimate Large Platelets Giant Platelets Poikilocytosis (manual Anisocytosis (manual) Ovalocytes pO2 VBG pH VBG pCO2 VBG HCO3 VBG Total CO2 VBG O2 Sat (Calc) VBG Base Excess VBG Potassium Glucose Lactate FiO2 Sodium 141 Potassium 3.3 L Chloride 109 H Carbon Dioxide 21 L Anion Gap 14 BUN 18 Creatinine 1.0 Est GFR ( Amer) > 60 Est GFR (Non-Af Amer) > 60 POC Glucose (mg/dL) Random Glucose 117 H Calcium 8.8 Total Bilirubin 1.2 AST 15 L ALT 19 L D Alkaline Phosphatase 76 Total Protein 6.5 Albumin 3.4 L Globulin 3.0 Albumin/Globulin Ratio 1.1 Triglycerides 58 D Cholesterol 117 LDL Cholesterol Direct 67 HDL Cholesterol 32 Vitamin B12 361 Venous Blood Potassium Assessment & Plan - Assessment and Plan (Free Text) Assessment: A/P: 78 y/o male with PMH of Asthma, Atrial Fibrillation, Back Problems, CAD, s/p cardiac cath, CHF, COPD, Osteoaethritis and HTN admitted to [facility] for evaluation and treatment of b/l knee pain/acute bursitis. B/l knee pain/acute bursitis, No leukocytosis, Afebrile, low suspicion for septic joints - U/s LE: Negative for DVT - Xray b/l Knees: + Bursitis - Consult Ortho, f/u recommendations - C/w Unsyn as ordered day 1 - C/w pain management HTN, CAD s/p Cardiac cath and Hx of A.fib - C/w Norvasc, ASA, HCTZ and BEVERLY-I - Patient is not taking any eliquis at home, will hold for today, restart tomorrow after ortho recommendations - EKG today : + A.fib and ST/T changes (Not c/o any chest pain) - F/u STAT troponin and consider cardiology if elevated Hx of Asthma and COPD - C/w home meds as ordered - Albutrol and Duoneb PRN - NC o2 Diet: Heart healthy DVT PPX: SCD and Eliquis from tomorrow Case discussed and Patient seen with Dr. Santos
[2019-01-03] MEDS: Lidocaine 5% Patch TD SCH (10:49)
--- NOTE | 2019-01-03 11:08 | CARD ---
APPROVED REPORT Date of service: 01/03/2019 EKG Measurement Heart [id number] <Conclusion> Atrial fibrillation ST & T wave abnormality, consider inferior ischemia ST & T wave abnormality, consider anterolateral ischemia Abnormal ECG
--- NOTE | 2019-01-03 15:59 | CP.PCM.CON ---
History of Present Illness - History of Present Illness History of Present Illness: Orthopedic consult : Dr. Dorado Patient is a 78 y/o male c/o of severe R knee pain. The pain has progressively worsened over the past 5 days without any history of injury or trauma to the knee. His is at bedside who provides some history. The pain is 10/10 hindering him from being able to weight bear. He does not walk with any assistive aids. He describes the pain as dull, severe, constant and worse with any movement. The pain alleviates with rest. There is associated swelling and warmth. He denies any radiation of pain/numbness/tingling. He denies any history of gout. He currently denies any CP/SOB/N/V/D/fever/dysuria/melena. 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 Meds: as per med rec NKDA SH: smoker >10 cig/day, + etoh and heroin/cocaine use, last use 5 days ago Review of Systems - Review of Systems All systems: reviewed and no additional remarkable complaints except Review of Systems: as per HPI Past Patient History - Infectious Disease Hx of Infectious Diseases: None - Past Medical History & Family History Past Medical History?: Yes Past Family History: Reviewed and not pertinent - Past Social History Smoking Status: Never Smoked - CARDIAC Hx Cardiac Disorders: Yes Hx Atrial Fibrillation: Yes Hx Congestive Heart Failure: Yes Hx Hypertension: Yes Hx Pacemaker: Yes - PULMONARY Hx Respiratory Disorders: Yes Hx Asthma: Yes Hx Chronic Obstructive Pulmonary Disease (COPD): Yes - NEUROLOGICAL Hx Neurological Disorder: No - HEENT Hx HEENT Problems: No - RENAL Hx Chronic Kidney Disease: No - ENDOCRINE/METABOLIC Hx Endocrine Disorders: Yes Hx Diabetes Mellitus Type 2: Yes - HEMATOLOGICAL/ONCOLOGICAL Hx Blood Disorders: No Hx Human Immunodeficiency Virus (HIV): No - INTEGUMENTARY Hx Dermatological Problems: Yes Hx Cellulitis: Yes - MUSCULOSKELETAL/RHEUMATOLOGICAL Hx Musculoskeletal Disorders: Yes Hx Falls: No - GASTROINTESTINAL Hx Gastrointestinal Disorders: No - GENITOURINARY/GYNECOLOGICAL Hx Genitourinary Disorders: No - PSYCHIATRIC Hx Psychophysiologic Disorder: Yes Hx Substance Use: Yes - SURGICAL HISTORY Hx Surgeries: Yes Hx Amputation: Yes (R 2nd 3rd 4th fingers) Other/Comment: 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, 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 - ANESTHESIA Hx Anesthesia: Yes Hx Anesthesia Reactions: No Hx Malignant Hyperthermia: No Meds Allergies/Adverse Reactions: Allergies Allergy/AdvReac Type Severity Reaction Status Date / Time No Known Allergies Allergy Verified 01/02/19 08:05 - Medications Medications: Current Medications Acetaminophen (Tylenol 325mg Tab) 650 mg PO Q6 PRN PRN Reason: Pain, Mild (1-3) Last Admin: 01/03/19 08:29 Dose: 650 mg Albuterol (Ventolin Hfa 90 Mcg/Actuation (8 G)) 2 puff IH Q6 PRN PRN Reason: Shortness of Breath Amlodipine Besylate (Norvasc) 5 mg PO DAILY [facility] Last Admin: 01/03/19 08:23 Dose: 5 mg Apixaban (Eliquis) 2.5 mg PO BID [facility]; Protocol Aspirin (Ecotrin) 81 mg PO DAILY [facility] Last Admin: 01/03/19 08:23 Dose: 81 mg Hydrochlorothiazide (Hydrodiuril) 25 mg PO DAILY [facility] Last Admin: 01/03/19 08:23 Dose: 25 mg Ampicillin Sodium/Sulbactam (Sodium 3 gm/ Sodium Chloride) 100 mls @ 100 mls/hr IVPB Q6 [facility]; Protocol Last Admin: 01/03/19 10:48 Dose: 100 mls/hr Insulin Human Regular (Humulin R) 0 units SC ACHS [facility]; Protocol Ketorolac Tromethamine (Toradol) 15 mg IVP Q6 PRN PRN Reason: Pain, moderate (4-7) Ketorolac Tromethamine (Toradol) 30 mg IVP Q6 PRN PRN Reason: Pain, severe (8-10) Last Admin: 01/03/19 14:27 Dose: 30 mg Lidocaine (Lidoderm) 2 ea TD DAILY [facility] Last Admin: 01/03/19 10:49 Dose: 2 ea Lisinopril (Zestril) 20 mg PO DAILY [facility] Last Admin: 01/03/19 08:23 Dose: 20 mg Physical Exam - Constitutional Appears: No Acute Distress Additional comments: Drowsy - Head Exam Head Exam: ATRAUMATIC, NORMOCEPHALIC - Eye Exam Eye Exam: EOMI, Normal appearance - ENT Exam ENT Exam: Mucous Membranes Moist - Respiratory Exam Respiratory Exam: NORMAL BREATHING PATTERN - Extremities Exam Additional comments: RLE: severe swelling and large effusion + warmth, no erythema/ecchymosis diffuse tenderness unable to ROM due to pain sensation intact SP/DP/TN motor intact EHL/FHL/TA/G pedal pulse intact RLE: mild swelling and mild effusion no warmth, no erythema/ecchymosis mild medial tenderness FROM sensation intact SP/DP/TN motor intact EHL/FHL/TA/G pedal pulse intact - Neurological Exam Neurological exam: Alert, Oriented x3 - Psychiatric Exam Psychiatric exam: Normal Affect, Normal Mood - Skin Skin Exam: Normal Color, Warm Results - Vital Signs Recent Vital Signs: Last Vital Signs Temp 98.4 F 01/03/19 07:39 Pulse 74 01/03/19 07:39 Resp 19 01/03/19 07:39 BP 182/94 H 01/03/19 07:39 Pulse Ox 96 01/03/19 07:39 - Labs Result Diagrams: 01/03/19 06:05 01/03/19 06:05 Labs: Laboratory Results - last 24 hr 01/02/19 01/02/19 01/03/19 16:11 18:16 06:05 WBC 9.1 RBC 4.36 L Hgb 14.2 Hct 41.9 MCV 96.3 H MCH 32.7 H MCHC 34.0 RDW 13.6 Plt Count 182 MPV 9.5 Neut % (Auto) 74.7 Lymph % (Auto) 12.5 L [place] % (Auto) 12.2 H Eos % (Auto) 0.1 Baso % (Auto) 0.5 Neut # (Auto) 6.8 Lymph # (Auto) 1.1 [place] # (Auto) 1.1 H Eos # (Auto) 0.0 Baso # (Auto) 0.0 pO2 27 L 24 L VBG pH 7.40 7.39 VBG pCO2 40 42 VBG HCO3 23.7 23.7 VBG Total CO2 26.0 26.7 VBG O2 Sat (Calc) 56.6 48.2 VBG Base Excess 0.0 0.3 VBG Potassium 3.4 L 3.2 L Sodium 138.0 140.0 Chloride 105.0 107.0 Glucose 138 H 123 H Lactate 1.4 1.5 FiO2 21.0 21.0 Potassium Carbon Dioxide Anion Gap BUN Creatinine Est GFR ( Amer) Est GFR (Non-Af Amer) Random Glucose Calcium Total Bilirubin AST ALT Alkaline Phosphatase Troponin I Total Protein Albumin Globulin Albumin/Globulin Ratio Triglycerides Cholesterol LDL Cholesterol Direct HDL Cholesterol Vitamin B12 Venous Blood Potassium 3.4 L 3.2 L 01/03/19 01/03/19 06:05 13:45 WBC RBC Hgb Hct MCV MCH MCHC RDW Plt Count MPV Neut % (Auto) Lymph % (Auto) [place] % (Auto) Eos % (Auto) Baso % (Auto) Neut # (Auto) Lymph # (Auto) [place] # (Auto) Eos # (Auto) Baso # (Auto) pO2 VBG pH VBG pCO2 VBG HCO3 VBG Total CO2 VBG O2 Sat (Calc) VBG Base Excess VBG Potassium Sodium 141 Chloride 109 H Glucose Lactate FiO2 Potassium 3.3 L Carbon Dioxide 21 L Anion Gap 14 BUN 18 Creatinine 1.0 Est GFR ( Amer) > 60 Est GFR (Non-Af Amer) > 60 Random Glucose 117 H Calcium 8.8 Total Bilirubin 1.2 AST 15 L ALT 19 L D Alkaline Phosphatase 76 Troponin I 0.0550 Total Protein 6.5 Albumin 3.4 L Globulin 3.0 Albumin/Globulin Ratio 1.1 Triglycerides 58 D Cholesterol 117 LDL Cholesterol Direct 67 HDL Cholesterol 32 Vitamin B12 361 Venous Blood Potassium - Impressions Impression: Accession No. : [id number] Patient Name / ID : IENZ NEGRETE / [id number] Exam Date : 01/02/2019 09:57:51 ( Approved ) Study Comment : Sex / Age : M / 78Y Creator : george falcon Dictator : David Alan MD Gasoline Tester : Ditch Rider : David Alan MD Approver2 : Report Date : 01/02/2019 10:48:56 My Comment : Date of service: 01/02/2019 PROCEDURE: Bilateral Knee Radiographs. HISTORY: knee pain COMPARISON: None. TECHNIQUE: 4 views obtained. FINDINGS: BONES: No fracture identified bilaterally. No destructive bony lesion identified. JOINTS: Joint space narrowing, articular cortical sclerosis and osteophyte development are identified in all 3 compartments of the right greater than left knee. The medial right patellofemoral articulation appears the worst affected at the right with the left medial femorotibial compartment also affect the worst at the left knee compartments. SOFT TISSUES: (Exclusive of suprapatellar bursa region) Right Knee: Normal. Left Knee: Normal. JOINT EFFUSION: Effusion identified at right knee. Small suprapatellar bursa effusion present at left knee. OTHER FINDINGS: None. IMPRESSION: Moderate to severe osteoarthritis right knee including large suprapatellar bursa effusion. Moderate left knee osteoarthritis with small suprapatellar bursa effusion. No acute fracture, subluxation or dislocation identified bilaterally. Assessment & Plan (1) Right knee pain Assessment and Plan: Patient with severe right knee pain, possible septic joint vs gouty arthritis vs osteoarthritic flare up -right knee joint aspirated under sterile conditions, pt tolerated well -synovial sent for cultures x 3, cell count and crystal analysis -pain control -compressive wrap applied -PT/OT WBAT -IV abx as per medicine -d/w Dr. Dorado who agrees with above Status: Acute - Date & Time Date: 01/03/19 Time: 15:30 Procedure: Fluid Aspiration - Time Performed Time Performed: 16:45 - Time Out Time Out: Side verified, Site verified, Patient ID confirmed, Sterile procedures obs. - Procedure Procedure: Arthrocentesis (right knee) - Consent Obtained Consent obtained: Written - Performed By Performed by: Mid-level Provider - Indications Indication(s): Therapeutic, Diagnostic, Joint effusion, Suspected septic joint - Contraindications Contraindications: None - Location Location: Right - Anesthetic Technique Anesthetic Technique: Local Anesthetic: Lidocaine 1% Procedure: Usual prep and drape, Needle gauge (18) - Appearance Appearance: Straw-colored - Drained Drained ml: 80 - Post-procedure Post-procedure: Dressed - Complications Complications: None - Patient tolerated procedure Patient tolerated procedure: Well
[2019-01-03] MEDS ORDERED: Lidocaine 1% Inj (20ml) IJ STA (16:18)
[2019-01-03] MEDS: Insulin Regular 100 units/ml SC SCH ×2 (16:34→21:50)
[2019-01-03 17:32] LABS: FLUID TYPE SYNOVIAL FLUID
[2019-01-03 18:29] LABS: SF GROSS APPEARANCE CLOUDY (CLEAR)
[2019-01-03 18:30] LABS: SYNOVIAL FLUID COMMENT VISCOUS
[2019-01-03 19:09] LABS: SYNOVIAL FLUID MONO/MACROPHAGE 5 % (0-0)
[2019-01-04 07:09] LABS: BASO % 0.7 % (0.0-2.0); EOS % 0.3 % (0.0-4.0); HEMOGLOBIN 12.3 g/dL (12.0-18.0); LYMPH # 1.4 K/uL (1.0-4.3); LYMPH % 19.9 % (20.0-40.0); MEAN CELL VOLUME 95.7 fl (80.0-94.0); MEAN CORPUSCULAR HEMOGLOBIN 32.5 pg (27.0-31.0); MEAN CORPUSCULAR HGB CONC 33.9 g/dL (33.0-37.0); MEAN PLATELET VOLUME 9.5 fl (7.2-11.7); MONO # 0.7 K/uL (0.0-0.8); MONO % 10.6 % (0.0-10.0); NEUT # 4.7 K/uL (1.8-7.0); NEUT % 68.5 % (50.0-75.0); NRBC % 0.1 % (0.0-0.0); RBC 3.8 Mil/uL (4.40-5.90); RED CELL DISTRIBUTION WIDTH 13.6 % (11.5-14.5); WHITE BLOOD COUNT 6.8 K/uL (4.8-10.8)
[2019-01-04 07:22] LABS: BLOOD UREA NITROGEN 27 mg/dl (9-20); CALCIUM 8.1 mg/dL (8.4-10.2); GFR NON-AFRICAN AMERICAN 59
--- NOTE | 2019-01-04 08:10 | CP.PCM.PN ---
Subjective - Date & Time of Evaluation Date of Evaluation: 01/04/19 Time of Evaluation: 08:05 - Subjective Subjective: Patient states today his left knee hurts also. He says the pain in both knees is 10/10. He says the pain in the right knee is the same after aspiration. Review of Systems - Review of Systems All systems: reviewed and no additional remarkable complaints except - Cardiovascular Cardiovascular: UNREMARKABLE - Respiratory Respiratory: UNREMARKABLE - Musculoskeletal Musculoskeletal: As Par HPI - Integumentary Integumentary: UNREMARKABLE - Neurological Neurological: UNREMARKABLE Objective - Vital Signs/Intake and Output Vital Signs (last 24 hours): Temp Pulse Resp BP Pulse Ox 97.9 F 65 20 125/78 96 01/04/19 07:45 01/04/19 07:45 01/04/19 07:45 01/04/19 07:45 01/04/19 07:45 - Medications Medications: Current Medications Acetaminophen (Tylenol 325mg Tab) 650 mg PO Q6 PRN PRN Reason: Pain, Mild (1-3) Last Admin: 01/03/19 08:29 Dose: 650 mg Acetaminophen (Tylenol 325mg Tab) 650 mg PO Q6 PRN PRN Reason: Fever >100.4 F Albuterol (Ventolin Hfa 90 Mcg/Actuation (8 G)) 2 puff IH Q6 PRN PRN Reason: Shortness of Breath Amlodipine Besylate (Norvasc) 5 mg PO DAILY [facility] Last Admin: 01/03/19 08:23 Dose: 5 mg Apixaban (Eliquis) 2.5 mg PO BID [facility]; Protocol Aspirin (Ecotrin) 81 mg PO DAILY [facility] Last Admin: 01/03/19 08:23 Dose: 81 mg Hydrochlorothiazide (Hydrodiuril) 25 mg PO DAILY [facility] Last Admin: 01/03/19 08:23 Dose: 25 mg Ampicillin Sodium/Sulbactam (Sodium 3 gm/ Sodium Chloride) 100 mls @ 100 mls/hr IVPB Q6 [facility]; Protocol Last Admin: 01/04/19 03:44 Dose: 100 mls/hr Insulin Human Regular (Humulin R) 0 units SC ACHS [facility]; Protocol Last Admin: 01/03/19 21:50 Dose: Not Given Ketorolac Tromethamine (Toradol) 15 mg IVP Q6 PRN PRN Reason: Pain, moderate (4-7) Ketorolac Tromethamine (Toradol) 30 mg IVP Q6 PRN PRN Reason: Pain, severe (8-10) Last Admin: 01/03/19 14:27 Dose: 30 mg Lidocaine (Lidoderm) 2 ea TD DAILY [facility] Last Admin: 01/03/19 10:49 Dose: 2 ea Lisinopril (Zestril) 20 mg PO DAILY [facility] Last Admin: 01/03/19 08:23 Dose: 20 mg - Labs Labs: 01/04/19 06:50 01/04/19 06:50 - Constitutional Appears: Well, No Acute Distress - Head Exam Head Exam: ATRAUMATIC - Neck Exam Neck Exam: Full ROM, Normal Inspection - Respiratory Exam Respiratory Exam: NORMAL BREATHING PATTERN - Cardiovascular Exam Additional comments: +DP/PT pulses - Extremities Exam Additional comments: Right knee: moderate effusion, mildly warm, improved AROM today no erythema Left knee: moderate effusion, warm, ROM 0-80 degrees with mild pain sensation intact +DP/PT pulses calves soft NT neg homans - Neurological Exam Neurological Exam: Alert, Awake, Oriented x3 Neuro motor strength exam: Left Lower Extremity: 5, Right Lower Extremity: 5 - Psychiatric Exam Psychiatric exam: Normal Affect, Normal Mood - Skin Skin Exam: Dry, Intact, Normal Color, Warm Assessment and Plan (1) Effusion, right knee Assessment & Plan: r/o gout vs septic arthritis now with left knee effusion also today cell count not convincing for infection, 10k WBC and only 86% polys awaiting gram stain and crystals f/u cultures tmax 100 overnight WBC downtrending check uric acid patient complaining of severe pain, but ROM improving in right knee and no acute distress awaiting labs PT today d/w Dr. Dorado, agrees with above Status: Acute
--- NOTE | 2019-01-04 08:15 | CP.PCM.PN ---
Subjective - Date & Time of Evaluation Date of Evaluation: 01/04/19 Time of Evaluation: 06:40 - Subjective Subjective: Patient seen and examined this morning with Dr. Santos. No acute event overnight, NAD, patient reports improved R knee pain somewhat. Seen by ortho: S/p right knee joint aspiration ([id number]+, TAILER OUT 86H): f/u culture Consult cardiology for management of his A.fib/Non-compliant with Eliquis PT/OT Objective - Vital Signs/Intake and Output Vital Signs (last 24 hours): Temp Pulse Resp BP Pulse Ox 97.9 F 65 20 125/78 96 01/04/19 07:45 01/04/19 07:45 01/04/19 07:45 01/04/19 07:45 01/04/19 07:45 - Medications Medications: Current Medications Acetaminophen (Tylenol 325mg Tab) 650 mg PO Q6 PRN PRN Reason: Pain, Mild (1-3) Last Admin: 01/03/19 08:29 Dose: 650 mg Acetaminophen (Tylenol 325mg Tab) 650 mg PO Q6 PRN PRN Reason: Fever >100.4 F Albuterol (Ventolin Hfa 90 Mcg/Actuation (8 G)) 2 puff IH Q6 PRN PRN Reason: Shortness of Breath Amlodipine Besylate (Norvasc) 5 mg PO DAILY [facility] Last Admin: 01/03/19 08:23 Dose: 5 mg Apixaban (Eliquis) 2.5 mg PO BID [facility]; Protocol Aspirin (Ecotrin) 81 mg PO DAILY [facility] Last Admin: 01/03/19 08:23 Dose: 81 mg Hydrochlorothiazide (Hydrodiuril) 25 mg PO DAILY [facility] Last Admin: 01/03/19 08:23 Dose: 25 mg Ampicillin Sodium/Sulbactam (Sodium 3 gm/ Sodium Chloride) 100 mls @ 100 mls/hr IVPB Q6 [facility]; Protocol Last Admin: 01/04/19 03:44 Dose: 100 mls/hr Insulin Human Regular (Humulin R) 0 units SC ACHS [facility]; Protocol Last Admin: 01/03/19 21:50 Dose: Not Given Ketorolac Tromethamine (Toradol) 15 mg IVP Q6 PRN PRN Reason: Pain, moderate (4-7) Ketorolac Tromethamine (Toradol) 30 mg IVP Q6 PRN PRN Reason: Pain, severe (8-10) Last Admin: 01/03/19 14:27 Dose: 30 mg Lidocaine (Lidoderm) 2 ea TD DAILY [facility] Last Admin: 01/03/19 10:49 Dose: 2 ea Lisinopril (Zestril) 20 mg PO DAILY [facility] Last Admin: 01/03/19 08:23 Dose: 20 mg - Labs Labs: 01/04/19 06:50 01/04/19 06:50 - Constitutional Appears: No Acute Distress - Head Exam Head Exam: NORMAL INSPECTION - Eye Exam Eye Exam: Normal appearance Pupil Exam: NORMAL ACCOMODATION - ENT Exam ENT Exam: Mucous Membranes Moist - Neck Exam Neck Exam: Full ROM - Respiratory Exam Respiratory Exam: Clear to Ausculation Bilateral, NORMAL BREATHING PATTERN - Cardiovascular Exam Cardiovascular Exam: Irregular Rhythm, +S1, +S2 - GI/Abdominal Exam GI & Abdominal Exam: Soft, Normal Bowel Sounds. absent: Tenderness - Extremities Exam Additional comments: + b/l knee swelling, Fluid accumulation, tenderness and warmth NO erythema neurovascular intact. 2+ DP , cap refill less than 2 sec - Back Exam Back Exam: NORMAL INSPECTION - Neurological Exam Neurological Exam: Alert, Awake, Oriented x3 - Psychiatric Exam Psychiatric exam: Normal Affect - Skin Skin Exam: Normal Color Assessment and Plan - Assessment and Plan (Free Text) Assessment: A/P: 78 y/o male with PMH of Asthma, Atrial Fibrillation, Back Problems, CAD, s/p cardiac cath, CHF, COPD, Osteoaethritis and HTN admitted to [facility] for evaluation and treatment of b/l knee pain/acute bursitis. B/l knee pain/acute bursitis vs septic joints - U/s LE: Negative for DVT - Xray b/l Knees: + Bursitis - Seen by ortho: S/p right knee joint aspiration ([id number]+, TAILER OUT 86H): f/u culture - C/w Unsyn as ordered day 1 - C/w pain management - Continue management as per ortho HTN, CAD s/p Cardiac cath and Hx of A.fib - C/w Norvasc, ASA, HCTZ and [place]-I - Patient is not taking any eliquis at home, START Eliquis - EKG : + A.fib and ST/T changes (Not c/o any chest pain) - F/u STAT troponin and consider cardiology if elevated - Consult cardiology for management of his A.fib/Non-compliant with Eliquis Hx of Asthma and COPD - C/w home meds as ordered - Albutrol and Duoneb PRN - NC o2 Diet: Heart healthy DVT PPX: SCD and Eliquis Case discussed and Patient seen with Dr. Santos
[2019-01-04] MEDS: Insulin Regular 100 units/ml SC SCH ×4 (08:58→21:41)
[2019-01-04] MEDS: Lidocaine 5% Patch TD SCH (09:01)
[2019-01-04] MEDS: Potassium Chloride 20 mEq ER Tab PO SCH (10:48)
--- NOTE | 2019-01-04 13:43 | RAD ---
Date of service: 01/04/2019 PROCEDURE: Left Knee Radiographs. HISTORY: Pain. COMPARISON: Bilateral knee radiographs 01/02/2019. TECHNIQUE: 2 views obtained. FINDINGS: BONES: No acute fracture or destructive bony lesion identified. JOINTS: No subluxation or dislocation. Joint space narrowing and soft tissue calcification are customer success representative of moderate degenerative joint disease as well as articular cortical sclerosis with minimal osteophyte development noted only at the patellofemoral articulation. JOINT EFFUSION: Increasing suprapatellar bursa effusion identified, now moderate to large in volume. OTHER FINDINGS: None. IMPRESSION: Moderate left knee osteoarthritis appreciated with increasing suprapatellar bursa effusion present. No interval fracture or dislocation identified.
[2019-01-04] MEDS ORDERED: Potassium Chloride 20 mEq ER Tab PO ONE (18:00)
--- NOTE | 2019-01-04 18:45 | CP.PCM.PN ---
Subjective - Date & Time of Evaluation Date of Evaluation: 01/04/19 Time of Evaluation: 18:42 - Subjective Subjective: I D NOTE EMR REVIEWED HAVE STARTED ADJUSTED DOSE OF VANCOMYCIN WOULD CONTINUE UNASYN AWAIT CULTURE RESULTS Objective - Vital Signs/Intake and Output Vital Signs (last 24 hours): Temp Pulse Resp BP Pulse Ox 97.8 F 62 20 113/68 98 01/04/19 16:09 01/04/19 16:09 01/04/19 16:09 01/04/19 16:01/04/19 16:09 - Medications Medications: Current Medications Acetaminophen (Tylenol 325mg Tab) 650 mg PO Q6 PRN PRN Reason: Pain, Mild (1-3) Last Admin: 01/03/19 08:29 Dose: 650 mg Acetaminophen (Tylenol 325mg Tab) 650 mg PO Q6 PRN PRN Reason: Fever >100.4 F Albuterol (Ventolin Hfa 90 Mcg/Actuation (8 G)) 2 puff IH Q6 PRN PRN Reason: Shortness of Breath Amlodipine Besylate (Norvasc) 5 mg PO DAILY [facility] Last Admin: 01/04/19 09:01 Dose: 5 mg Apixaban (Eliquis) 2.5 mg PO BID [facility]; Protocol Last Admin: 01/04/19 17:10 Dose: 2.5 mg Aspirin (Ecotrin) 81 mg PO DAILY [facility] Last Admin: 01/04/19 09:00 Dose: 81 mg Hydrochlorothiazide (Hydrodiuril) 25 mg PO DAILY [facility] Last Admin: 01/04/19 09:06 Dose: 25 mg Ampicillin Sodium/Sulbactam (Sodium 3 gm/ Sodium Chloride) 100 mls @ 100 mls/hr IVPB Q6 [facility]; Protocol Last Admin: 01/04/19 17:09 Dose: 100 mls/hr Vancomycin HCl 750 mg/ Sodium (Chloride) 250 mls @ 166.667 mls/hr IVPB Q12 [facility]; Protocol Insulin Human Regular (Humulin R) 0 units SC ACHS [facility]; Protocol Last Admin: 01/04/19 16:45 Dose: Not Given Ketorolac Tromethamine (Toradol) 15 mg IVP Q6 PRN PRN Reason: Pain, moderate (4-7) Ketorolac Tromethamine (Toradol) 30 mg IVP Q6 PRN PRN Reason: Pain, severe (8-10) Last Admin: 01/04/19 09:54 Dose: 30 mg Lidocaine (Lidoderm) 2 ea TD DAILY [facility] Last Admin: 01/04/19 09:01 Dose: 2 ea Lisinopril (Zestril) 20 mg PO DAILY [facility] Last Admin: 01/04/19 09:02 Dose: 20 mg Potassium Chloride (K-Dur 20 Meq Er Tab) 40 meq PO DAILY [facility] Last Admin: 01/04/19 10:48 Dose: 40 meq - Labs Labs: 01/04/19 06:50 01/04/19 06:50
--- NOTE | 2019-01-04 20:53 | CON ---
DATE: 01/04/2019 REASON FOR CONSULTATION: Chronic atrial fibrillation. HISTORY OF PRESENT ILLNESS: The patient is a 78-year-old male who has a history of chronic atrial fibrillation, history of dual-chamber pacemaker placement, presented because of lower extremity swelling and persistent leg pain. The patient underwent right knee tap. The patient was evaluated in August by me when he was admitted for altered mental status and had borderline troponin elevation. The cardiac catheterization at that time revealed insignificant proximal and mid left anterior descending artery disease with normal systolic function. The patient at that time tested positive for opiates and the had told me that he abuses cocaine in the meantime. SOCIAL HISTORY: The patient is a smoker and drinker. MEDICATIONS: Ampicillin-sulbactam 3 g every 6 hours, aspirin 81 mg once a day, Eliquis 2.5 mg twice a day, K-Dur 20 mEq orally daily, Norvasc at 5 mg daily, albuterol inhaler 2 puffs every 6 hours, Zestril 20 mg once a day. REVIEW OF SYSTEMS: The patient denies any chest pain, palpitation or dizziness. The patient was reported to have low-grade fever yesterday. PHYSICAL EXAMINATION: GENERAL: The patient is an elderly male who does not appear to be in acute distress. VITAL SIGNS: Blood pressure 125/78, heart rate 65, temperature 97.9, respirations 20. HEENT: Normocephalic. CHEST: Diminished breath sounds over the bases. HEART: S1, S2, regular. ABDOMEN: Soft. EXTREMITIES: Dressing is applied to the right knee and the left leg. LABORATORY DATA: Today's SMA-7: Sodium 139, potassium 3.2, chloride 108, CO2 of 23, glucose 102, BUN 27, creatinine 1.2. Calcium is below normal at 8.1. Today's hemoglobin and hematocrit 12.3 and 36.4, white count and platelet count are within normal limits. Synovial fluid revealed significant WBC's and RBC's as well as neutrophils and lymphocytes. The consistency was viscous. Chest x-ray revealed mild CHF and dual-chamber pacemaker. EKG revealed atrial fibrillation with ischemic anterolateral ST-T wave changes. The patient's troponin yesterday was 0.055. ASSESSMENT: 1. Chronic atrial fibrillation. 2. Arthritis, status post knee tapping. 3. 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 4. History of drug abuse. 5. Hypokalemia and hypocalcemia. RECOMMENDATIONS: Continue current IV ampicillin-sulbactam at 3 g every 6 hours, continue aspirin 81 mg once a day, continue Eliquis 2.5 mg twice a day, continue potassium chloride replacement at 40 mEq daily, continue Zestril 20 mg daily. I did follow the venous Doppler of the lower extremity, which was reported to be negative. I requested urine for drug screen in the meantime. Valeriano Mitchell MD [facility] # [id number]
[2019-01-05 05:43] LABS: BASO # 0.1 K/uL (0.0-0.2); BASO % 1.5 % (0.0-2.0); EOS # 0.1 K/uL (0.0-0.7); EOS % 1.1 % (0.0-4.0); HEMOGLOBIN 11.8 g/dL (12.0-18.0); LYMPH # 1.4 K/uL (1.0-4.3); MEAN CORPUSCULAR HEMOGLOBIN 32.5 pg (27.0-31.0); MEAN CORPUSCULAR HGB CONC 33.8 g/dL (33.0-37.0); MEAN PLATELET VOLUME 8.8 fl (7.2-11.7); MONO # 0.5 K/uL (0.0-0.8); MONO % 9.6 % (0.0-10.0); NEUT # 3.5 K/uL (1.8-7.0); NEUT % 62.8 % (50.0-75.0); NRBC % 0.1 % (0.0-0.0); RBC 3.63 Mil/uL (4.40-5.90); RED CELL DISTRIBUTION WIDTH 13.7 % (11.5-14.5); WHITE BLOOD COUNT 5.7 K/uL (4.8-10.8)
[2019-01-05 05:57] LABS: BLOOD UREA NITROGEN 26 mg/dl (9-20); CALCIUM 8.2 mg/dL (8.4-10.2); GFR NON-AFRICAN AMERICAN 59
[2019-01-05] MEDS: Insulin Regular 100 units/ml SC SCH ×4 (06:40→21:52)
[2019-01-05] MEDS: Lidocaine 5% Patch TD SCH (08:56)
[2019-01-05] MEDS: Potassium Chloride 20 mEq ER Tab PO SCH (08:57)
[2019-01-05 09:00] LABS: OPIATES, UR NEGATIVE (NEGATIVE)
[2019-01-05] MEDS ORDERED: Potassium Chloride 20 mEq ER Tab PO SCH (09:00)
[2019-01-05 09:44] LABS: BARBITURATES, UR NEGATIVE (NEGATIVE); BENZODIAZEPINES, UR POSITIVE (NEGATIVE); PHENCYCLIDINE, UR NEGATIVE (NEGATIVE)
--- NOTE | 2019-01-05 10:39 | CP.PCM.PN ---
Subjective - Date & Time of Evaluation Date of Evaluation: 01/05/19 Time of Evaluation: 10:36 - Subjective Subjective: Patient still complaining of pain in knees, R>L. Denies pain in other joints. Review of Systems - Review of Systems All systems: reviewed and no additional remarkable complaints except - Musculoskeletal Musculoskeletal: As Par HPI Objective - Vital Signs/Intake and Output Vital Signs (last 24 hours): Temp Pulse Resp BP Pulse Ox 97.7 F 67 18 108/63 98 01/05/19 08:37 01/05/19 09:03 01/05/19 08:37 01/05/19 09:03 01/05/19 08:37 - Medications Medications: Current Medications Acetaminophen (Tylenol 325mg Tab) 650 mg PO Q6 PRN PRN Reason: Pain, Mild (1-3) Last Admin: 01/03/19 08:29 Dose: 650 mg Acetaminophen (Tylenol 325mg Tab) 650 mg PO Q6 PRN PRN Reason: Fever >100.4 F Albuterol (Ventolin Hfa 90 Mcg/Actuation (8 G)) 2 puff IH Q6 PRN PRN Reason: Shortness of Breath Amlodipine Besylate (Norvasc) 5 mg PO DAILY [facility] Last Admin: 01/05/19 08:58 Dose: 5 mg Apixaban (Eliquis) 2.5 mg PO BID [facility]; Protocol Last Admin: 01/05/19 08:57 Dose: 2.5 mg Aspirin (Ecotrin) 81 mg PO DAILY [facility] Last Admin: 01/05/19 08:57 Dose: 81 mg Colchicine (Colocrys) 0.6 mg PO DAILY [facility] Hydrochlorothiazide (Hydrodiuril) 25 mg PO DAILY [facility] Last Admin: 01/05/19 08:57 Dose: 25 mg Ampicillin Sodium/Sulbactam (Sodium 3 gm/ Sodium Chloride) 100 mls @ 100 mls/hr IVPB Q6 [facility]; Protocol Last Admin: 01/05/19 09:02 Dose: 100 mls/hr Vancomycin HCl 750 mg/ Sodium (Chloride) 250 mls @ 166.667 mls/hr IVPB Q12 [facility]; Protocol Last Admin: 01/05/19 09:02 Dose: 166.667 mls/hr Insulin Human Regular (Humulin R) 0 units SC ACHS [facility]; Protocol Last Admin: 01/05/19 06:40 Dose: Not Given Ketorolac Tromethamine (Toradol) 15 mg IVP Q6 PRN PRN Reason: Pain, moderate (4-7) Last Admin: 01/05/19 00:26 Dose: 15 mg Ketorolac Tromethamine (Toradol) 30 mg IVP Q6 PRN PRN Reason: Pain, severe (8-10) Last Admin: 01/04/19 09:54 Dose: 30 mg Lidocaine (Lidoderm) 2 ea TD DAILY [facility] Last Admin: 01/05/19 08:56 Dose: 2 ea Lisinopril (Zestril) 20 mg PO DAILY [facility] Last Admin: 01/05/19 09:03 Dose: 20 mg Potassium Chloride (K-Dur 20 Meq Er Tab) 40 meq PO DAILY [facility] Last Admin: 01/05/19 08:57 Dose: 40 meq - Labs Labs: 01/05/19 05:35 01/05/19 05:35 - Constitutional Appears: Well, No Acute Distress - Head Exam Head Exam: ATRAUMATIC - Respiratory Exam Respiratory Exam: NORMAL BREATHING PATTERN - Cardiovascular Exam Additional comments: left knee effusion improved today, full ROM but complains of some pain, no erythema right knee effusion also improving, 0-90 degrees with pain, no erythema +ROM ankle/toes, senation intact +DP/PT pulses calves soft NT neg homans Assessment and Plan (1) Acute gout of right knee Assessment & Plan: +urate crystals per path cell count consistent with gout gram stain no organisms, cultures prelim negative no orthopedic intervention indicated recommend PT/OT and medical mgmt of gout d/w Dr. Dorado, agrees with above f/u as outpatient prn Status: Acute
--- NOTE | 2019-01-05 11:28 | CP.PCM.PN ---
Subjective - Date & Time of Evaluation Date of Evaluation: 01/05/19 Time of Evaluation: 07:10 - Subjective Subjective: Patient seen and examined this morning with Dr. Santos. No acute event overnight, NAD, patient reports b/l knee pain Seen by ortho: S/p right knee joint aspiration, Gout + urate crystals, gram stain no organisms, cultures prelim negative Seen by cardiology and ID START Colchicine for gout PT/OT Objective - Vital Signs/Intake and Output Vital Signs (last 24 hours): Temp Pulse Resp BP Pulse Ox 97.7 F 67 18 108/63 98 01/05/19 08:37 01/05/19 09:03 01/05/19 08:37 01/05/19 09:03 01/05/19 08:37 - Medications Medications: Current Medications Acetaminophen (Tylenol 325mg Tab) 650 mg PO Q6 PRN PRN Reason: Pain, Mild (1-3) Last Admin: 01/03/19 08:29 Dose: 650 mg Acetaminophen (Tylenol 325mg Tab) 650 mg PO Q6 PRN PRN Reason: Fever >100.4 F Albuterol (Ventolin Hfa 90 Mcg/Actuation (8 G)) 2 puff IH Q6 PRN PRN Reason: Shortness of Breath Amlodipine Besylate (Norvasc) 5 mg PO DAILY [facility] Last Admin: 01/05/19 08:58 Dose: 5 mg Apixaban (Eliquis) 2.5 mg PO BID [facility]; Protocol Last Admin: 01/05/19 08:57 Dose: 2.5 mg Aspirin (Ecotrin) 81 mg PO DAILY [facility] Last Admin: 01/05/19 08:57 Dose: 81 mg Colchicine (Colocrys) 0.6 mg PO DAILY [facility] Hydrochlorothiazide (Hydrodiuril) 25 mg PO DAILY [facility] Last Admin: 01/05/19 08:57 Dose: 25 mg Ampicillin Sodium/Sulbactam (Sodium 3 gm/ Sodium Chloride) 100 mls @ 100 mls/hr IVPB Q6 [facility]; Protocol Last Admin: 01/05/19 09:02 Dose: 100 mls/hr Vancomycin HCl 750 mg/ Sodium (Chloride) 250 mls @ 166.667 mls/hr IVPB Q12 [facility]; Protocol Last Admin: 01/05/19 09:02 Dose: 166.667 mls/hr Insulin Human Regular (Humulin R) [address] [facility]; Protocol Last Admin: 01/05/19 06:40 Dose: Not Given Ketorolac Tromethamine (Toradol) 15 mg IVP Q6 PRN PRN Reason: Pain, moderate (4-7) Last Admin: 01/05/19 00:26 Dose: 15 mg Ketorolac Tromethamine (Toradol) 30 mg IVP Q6 PRN PRN Reason: Pain, severe (8-10) Last Admin: 01/04/19 09:54 Dose: 30 mg Lidocaine (Lidoderm) 2 ea TD DAILY [facility] Last Admin: 01/05/19 08:56 Dose: 2 ea Lisinopril (Zestril) 20 mg PO DAILY [facility] Last Admin: 01/05/19 09:03 Dose: 20 mg Potassium Chloride (K-Dur 20 Meq Er Tab) 40 meq PO DAILY [facility] Last Admin: 01/05/19 08:57 Dose: 40 meq - Labs Labs: 01/05/19 05:35 01/05/19 05:35 - Constitutional Appears: No Acute Distress - Head Exam Head Exam: NORMAL INSPECTION - Eye Exam Eye Exam: Normal appearance - ENT Exam ENT Exam: Mucous Membranes Moist - Neck Exam Neck Exam: Normal Inspection - Respiratory Exam Respiratory Exam: Clear to Ausculation Bilateral, NORMAL BREATHING PATTERN - Cardiovascular Exam Cardiovascular Exam: REGULAR RHYTHM, +S1, +S2 - GI/Abdominal Exam GI & Abdominal Exam: Soft, Normal Bowel Sounds - Extremities Exam Additional comments: + b/l knee swelling, Fluid accumulation, tenderness and warmth NO erythema neurovascular intact. 2+ DP , cap refill less than 2 sec - Back Exam Back Exam: NORMAL INSPECTION - Neurological Exam Neurological Exam: Alert, Awake, Oriented x3 - Psychiatric Exam Psychiatric exam: Normal Affect - Skin Skin Exam: Normal Color Assessment and Plan - Assessment and Plan (Free Text) Assessment: A/P: 78 y/o male with PMH of Asthma, Atrial Fibrillation, Back Problems, CAD, s/p cardiac cath, CHF, COPD, Osteoaethritis and HTN admitted to [facility] for evaluation and treatment of b/l knee pain/acute bursitis/Gout. B/l knee pain due to acute gout - U/s LE: Negative for DVT - Xray b/l Knees: + Bursitis - Seen by ortho: S/p right knee joint aspiration/Gout + urate crystals, gram stain no organisms, cultures prelim negative - Consult ID, recs appreciated - C/w Unsyn as ordered day 2 - C/w Vanco day 1 - C/w pain management - Continue management as per ortho - START Colchicine for gout - F/u uric acid HTN, CAD s/p Cardiac cath and Hx of A.fib - C/w Norvasc, ASA, HCTZ and [place]-I - Patient is not taking any eliquis at home, START Eliquis - EKG : + A.fib and ST/T changes (Not c/o any chest pain) - Consult cardiology for management of his A.fib/Non-compliant with Eliquis, recs appreciated - Continue management as ordered Hx of Asthma and COPD - C/w home meds as ordered - Albutrol and Duoneb PRN - NC o2 Diet: Heart healthy DVT PPX: SCD and Eliquis Case discussed and Patient seen with Dr. Santos
--- NOTE | 2019-01-05 18:20 | PN ---
DATE: 01/05/2019 SUBJECTIVE: The patient is oriented to place. He denies any chest pain. PHYSICAL EXAMINATION: VITAL SIGNS: Blood pressure 108/53, heart rate 67, temperature 97.7, respirations 18. HEENT: Normocephalic. CHEST: Clear. HEART: S1 and S2. Regular. EXTREMITIES: Trace edema. Dressing is applied to the right knee. LABORATORY DATA: Urine drug screen is positive for benzodiazepines and is negative for opiates. For the first time, the last three urine drug screens were positive for opiates. Today's SMA-7: Sodium 139, potassium 3.5, chloride 109, CO2 of 22, glucose 94, BUN 26, creatinine 1.2. Today's hemoglobin and hematocrit are 11.8 and 34.9. White count and platelet counts are within normal limits. Uric acid is within normal limits at 6.8. Right knee synovial fluid cytology, multiple white blood cells. Gouty crystals are seen. Synovial fluid culture is negative after 24 hours and blood cultures are negative after 48 hours. I did review the cardiac catheterization performed in August which revealed that the LAD becomes a very narrow vessel after its proximal and mid segment. The diameter is reduced to 50% proximally and remains as a very small vessel in its mid and distal segment and that vessel is not amenable for intervention as its caliber is 1 mm or less. On the left ventriculogram, there were no segmental, apical, or anterior wall hypokinesis. ASSESSMENT: 1. Chronic atrial fibrillation. 2. Coronary artery disease. 3. Gouty arthritis. 4. Hypokalemia and hypocalcemia. RECOMMENDATIONS: Continue current IV ampicillin-sulbactam, continue colchicine 0.6 mg daily, aspirin 81 mg once a day, Eliquis 2.5 mg twice a day, K-Dur 40 mEq orally once a day, Norvasc at 5 mg daily. Continue IV vancomycin at 1 g every 12 hours and Vistaril 20 mg daily. Start atenolol 25 mg orally daily. Valeriano Mitchell MD
--- NOTE | 2019-01-05 18:37 | CP.PCM.PN ---
Subjective - Date & Time of Evaluation Date of Evaluation: 01/05/19 Time of Evaluation: 18:36 - Subjective Subjective: id note patient improving continue iv for present will switch to po sbased on diagnosis Objective - Vital Signs/Intake and Output Vital Signs (last 24 hours): Temp Pulse Resp BP Pulse Ox 97.8 F 60 19 119/69 100 01/05/19 16:23 01/05/19 16:42 01/05/19 16:23 01/05/19 16:42 01/05/19 16:23 - Medications Medications: Current Medications Acetaminophen (Tylenol 325mg Tab) 650 mg PO Q6 PRN PRN Reason: Pain, Mild (1-3) Last Admin: 01/03/19 08:29 Dose: 650 mg Acetaminophen (Tylenol 325mg Tab) 650 mg PO Q6 PRN PRN Reason: Fever >100.4 F Albuterol (Ventolin Hfa 90 Mcg/Actuation (8 G)) 2 puff IH Q6 PRN PRN Reason: Shortness of Breath Amlodipine Besylate (Norvasc) 5 mg PO DAILY [facility] Last Admin: 01/05/19 08:58 Dose: 5 mg Apixaban (Eliquis) 2.5 mg PO BID [facility]; Protocol Last Admin: 01/05/19 16:43 Dose: 2.5 mg Aspirin (Ecotrin) 81 mg PO DAILY [facility] Last Admin: 01/05/19 08:57 Dose: 81 mg Atenolol (Tenormin) 12.5 mg PO DAILY [facility] Last Admin: 01/05/19 16:42 Dose: 12.5 mg Colchicine (Colocrys) 0.6 mg PO DAILY [facility] Hydrochlorothiazide (Hydrodiuril) 25 mg PO DAILY [facility] Last Admin: 01/05/19 08:57 Dose: 25 mg Ampicillin Sodium/Sulbactam (Sodium 3 gm/ Sodium Chloride) 100 mls @ 100 mls/hr IVPB Q6 [facility]; Protocol Last Admin: 01/05/19 16:42 Dose: 100 mls/hr Vancomycin HCl 750 mg/ Sodium (Chloride) 250 mls @ 166.667 mls/hr IVPB Q12 [facility]; Protocol Last Admin: 01/05/19 09:02 Dose: 166.667 mls/hr Insulin Human Regular (Humulin R) 0 units SC ACHS [facility]; Protocol Last Admin: 01/05/19 16:41 Dose: Not Given Ketorolac Tromethamine (Toradol) 15 mg IVP Q6 PRN PRN Reason: Pain, moderate (4-7) Last Admin: 01/05/19 00:26 Dose: 15 mg Ketorolac Tromethamine (Toradol) 30 mg IVP Q6 PRN PRN Reason: Pain, severe (8-10) Last Admin: 01/04/19 09:54 Dose: 30 mg Lidocaine (Lidoderm) 2 ea TD DAILY [facility] Last Admin: 01/05/19 08:56 Dose: 2 ea Lisinopril (Zestril) 20 mg PO DAILY [facility] Last Admin: 01/05/19 09:03 Dose: 20 mg Potassium Chloride (K-Dur 20 Meq Er Tab) 40 meq PO DAILY [facility] Last Admin: 01/05/19 08:57 Dose: 40 meq - Labs Labs: 01/05/19 05:35 01/05/19 05:35
[2019-01-06] MEDS: Lidocaine 5% Patch TD SCH (08:41)
[2019-01-06] MEDS: Insulin Regular 100 units/ml SC SCH ×4 (08:43→22:12)
[2019-01-06] MEDS: Potassium Chloride 20 mEq ER Tab PO SCH (08:45)
--- NOTE | 2019-01-06 23:05 | PN ---
DATE: 01/06/2019 SUBJECTIVE: The patient denies any chest pain or abdominal pain. He complains of right knee pain. No shortness of breath. PHYSICAL EXAMINATION: VITAL SIGNS: Blood pressure 145/79, temperature 97.8, heart rate 63, respirations 19. HEENT: Normocephalic. CHEST: Clear. HEART: S1 and S2. Regular. ABDOMEN: Soft. EXTREMITIES: No pedal edema. LABORATORY DATA: Blood sugars are 92 and 138 respectively. Uric acid is within normal limits. Blood culture is negative after three days and synovial fluid culture is negative after two days. ASSESSMENT: 1. Coronary artery disease of the left anterior descending, not amenable for intervention. 2. Lateral ischemic electrocardiogram changes. 3. Chronic atrial fibrillation. 4. Gouty arthritis. 5. Hypokalemia. RECOMMENDATIONS: Continue current IV ampicillin-sulbactam at 3 g every 6 hours, continue colchicine 0.6 mg daily, aspirin 81 mg once a day, Eliquis 2.5 mg twice a day, K-Dur 40 mEq once a day, hydrochlorothiazide 25 mg once a day, Norvasc 5 mg once a day, Tenormin 12.5 mg once a day, lisinopril 20 mg once a day, IV vancomycin 750 mg every 12 hours. Obtain BNP and magnesium level in a.m. Valeriano Mitchell MD
[2019-01-07 08:30] LABS: HEMOGLOBIN 12.8 g/dL (12.0-18.0); MEAN CELL VOLUME 95.1 fl (80.0-94.0); MEAN CORPUSCULAR HEMOGLOBIN 32.5 pg (27.0-31.0); MEAN CORPUSCULAR HGB CONC 34.2 g/dL (33.0-37.0); RBC 3.94 Mil/uL (4.40-5.90); RED CELL DISTRIBUTION WIDTH 13.3 % (11.5-14.5); WHITE BLOOD COUNT 4.9 K/uL (4.8-10.8)
[2019-01-07] MEDS: Lidocaine 5% Patch TD SCH (08:48)
[2019-01-07] MEDS: Potassium Chloride 20 mEq ER Tab PO SCH (08:50)
[2019-01-07] MEDS: Insulin Regular 100 units/ml SC SCH ×4 (08:52→21:30)
[2019-01-07 10:47] LABS: ALB/GLOB RATIO 1.1 (1.0-2.1); ALBUMIN 3.4 g/dL (3.5-5.0); ALT/SGPT 18 U/L (21-72); AST/SGOT 47 U/L (17-59); BLOOD UREA NITROGEN 23 mg/dl (9-20); CALCIUM 8.9 mg/dL (8.4-10.2); GFR NON-AFRICAN AMERICAN > 60
--- NOTE | 2019-01-07 15:06 | PN ---
DATE: 01/07/2019 SUBJECTIVE: The patient seen and examined. Interim events noted. The patient remains in regular medical floor. Physical Therapy evaluation and followup noted and appreciated. The patient feels better. Pain is adequately controlled. No new complaint of chest pain or shortness of breath. Knee pain is adequately controlled. The patient was ambulating well with a walker. PHYSICAL EXAMINATION: GENERAL: The patient is in no acute distress. VITAL SIGNS: Stable. HEART: S1, S2. Normal and regular. LUNGS: Good bilateral air exchange. ABDOMEN: Soft, nontender. EXTREMITIES: The patient has chronic osteoarthritis and gout also; but not normal. No edema, no calf swelling, no tenderness, no acute ischemia. CENTRAL NERVOUS SYSTEM: Essentially unchanged. DIAGNOSTIC DATA: Available diagnostic data reviewed. Culture so far remains negative. ASSESSMENT AND PLAN: Infectious Disease followup and interventions noted and appreciated. Overall, the patient is clinically better. Plan as ordered. Diego Santos MD
[2019-01-08 06:31] LABS: MEAN CELL VOLUME 96.2 fl (80.0-94.0); MEAN CORPUSCULAR HEMOGLOBIN 32.5 pg (27.0-31.0); MEAN CORPUSCULAR HGB CONC 33.8 g/dL (33.0-37.0); RBC 3.98 Mil/uL (4.40-5.90); RED CELL DISTRIBUTION WIDTH 13.5 % (11.5-14.5)
[2019-01-08 06:49] LABS: ALB/GLOB RATIO 1.1 (1.0-2.1); ALBUMIN 3.3 g/dL (3.5-5.0); ALT/SGPT 21 U/L (21-72); AST/SGOT 20 U/L (17-59); BLOOD UREA NITROGEN 20 mg/dl (9-20); CALCIUM 8.7 mg/dL (8.4-10.2); GFR NON-AFRICAN AMERICAN > 60
[2019-01-08 08:02] VITALS: BP 157/89; RESP 20; TEMP 98.4
[2019-01-08] MEDS: Insulin Regular 100 units/ml SC SCH ×2 (08:41→12:03)
--- NOTE | 2019-01-08 09:04 | PN ---
DATE: 01/06/2019 SUBJECTIVE: The patient seen and examined. Interim events noted. Consults noted and appreciated. Infectious Disease and Orthopedic followup and intervention noted and appreciated. The patient remains in regular medical floor. The patient feels better. Was able to walk with assistance and walker yesterday. No new complaint of chest pain or shortness of breath. PHYSICAL EXAMINATION: GENERAL: The patient is in no acute distress. VITAL SIGNS: Stable. HEART: S1 and S2 normal and regular. LUNGS: Good bilateral air exchange. ABDOMEN: Soft, nontender. EXTREMITIES: No edema. No calf swelling. No tenderness, no acute ischemia. Knee showed signs of chronic bursitis versus swelling, looks much better and tenderness is almost resolved. DIAGNOSTIC DATA: Available diagnostic data reviewed. Cultures negative. ASSESSMENT AND PLAN: Overall, the patient seems to be clinically improving. Plan as ordered. Diego Santos MD
[2019-01-08] MEDS: Lidocaine 5% Patch TD SCH (09:23)
[2019-01-08] MEDS: Potassium Chloride 20 mEq ER Tab PO SCH (09:42)
--- NOTE | 2019-01-08 10:20 | PN ---
DATE: 01/08/2019 SUBJECTIVE: The patient is seen and examined. Interim events noted. The patient complains of more pain on the knee today than yesterday. No new complaint of chest pain or shortness of breath. PHYSICAL EXAMINATION: GENERAL: The patient is in no acute distress. VITAL SIGNS: Stable. HEART: S1 and S2. Normal and regular. LUNGS: Good bilateral air exchange. ABDOMEN: Soft and nontender. EXTREMITIES: The patient's knee actually seems better without any bursitis or swelling. No tenderness. No redness. No edema. No calf swelling. No sign of distal neurovascular compromise. CENTRAL NERVOUS SYSTEM EXAM: Essentially unchanged. DIAGNOSTIC DATA: Available diagnostic data reviewed. Discussed with his family. Cultures remained negative. ASSESSMENT AND PLAN: Overall, the patient is medically stable, but does complain of increased pain although clinical findings showed improvement. Plan as ordered. Case and plan was discussed with the patient. Diego Santos MD
--- NOTE | 2019-01-08 14:33 | CP.PCM.PN ---
Subjective - Date & Time of Evaluation Date of Evaluation: 01/08/19 Time of Evaluation: 11:00 - Subjective Subjective: Patient seen and examined at bedside comfortable. C/o moderate pain to right knee, resolved swelling. No pain to left knee. Ambulating and bending knees without issues. No other complaints. Objective - Vital Signs/Intake and Output Vital Signs (last 24 hours): Temp Pulse Resp BP Pulse Ox 98.4 F 67 20 157/89 H 97 01/08/19 08:01 01/08/19 09:22 01/08/19 08:01 01/08/19 09:22 01/08/19 08:01 - Medications Medications: Current Medications Acetaminophen (Tylenol 325mg Tab) 650 mg PO Q6 PRN PRN Reason: Pain, Mild (1-3) Last Admin: 01/03/19 08:29 Dose: 650 mg Acetaminophen (Tylenol 325mg Tab) 650 mg PO Q6 PRN PRN Reason: Fever >100.4 F Albuterol (Ventolin Hfa 90 Mcg/Actuation (8 G)) 2 puff IH Q6 PRN PRN Reason: Shortness of Breath Amlodipine Besylate (Norvasc) 5 mg PO DAILY [facility] Last Admin: 01/08/19 09:22 Dose: 5 mg Apixaban (Eliquis) 2.5 mg PO BID [facility]; Protocol Last Admin: 01/08/19 09:19 Dose: 2.5 mg Aspirin (Ecotrin) 81 mg PO DAILY [facility] Last Admin: 01/08/19 09:19 Dose: 81 mg Atenolol (Tenormin) 12.5 mg PO DAILY [facility] Last Admin: 01/08/19 09:22 Dose: 12.5 mg Colchicine (Colocrys) 0.6 mg PO DAILY [facility] Last Admin: 01/08/19 09:21 Dose: 0.6 mg Hydrochlorothiazide (Hydrodiuril) 25 mg PO DAILY [facility] Last Admin: 01/08/19 09:41 Dose: 25 mg Vancomycin HCl 750 mg/ Sodium (Chloride) 250 mls @ 166.667 mls/hr IVPB Q12 [facility]; Protocol Last Admin: 01/08/19 09:26 Dose: 166.667 mls/hr Ampicillin Sodium/Sulbactam (Sodium 3 gm/ Sodium Chloride) 100 mls @ 100 mls/hr IVPB Q6 [facility]; Protocol Last Admin: 01/08/19 10:17 Dose: 100 mls/hr Insulin Human Regular (Humulin R) 0 units SC ACHS [facility]; Protocol Last Admin: 01/08/19 12:03 Dose: Not Given Ketorolac Tromethamine (Toradol) 15 mg IVP Q6 PRN PRN Reason: Pain, moderate (4-7) Last Admin: 01/05/19 00:26 Dose: 15 mg Ketorolac Tromethamine (Toradol) 30 mg IVP Q6 PRN PRN Reason: Pain, severe (8-10) Last Admin: 01/06/19 16:08 Dose: 30 mg Lidocaine (Lidoderm) 2 ea TD DAILY [facility] Last Admin: 01/08/19 09:23 Dose: 2 ea Lisinopril (Zestril) 20 mg PO DAILY [facility] Last Admin: 01/08/19 09:21 Dose: 20 mg - Labs Labs: 01/08/19 04:35 01/08/19 04:35 - Extremities Exam Additional comments: RLE: minimal swelling and trace effusion no warmth, no erythema/ecchymosis no tenderness ROM 0-120 deg sensation intact SP/DP/TN motor intact EHL/FHL/TA/G pedal pulse intact RLE: no swelling and no effusion no warmth, no erythema/ecchymosis no medial tenderness FROM sensation intact SP/DP/TN motor intact EHL/FHL/TA/G pedal pulse intact Assessment and Plan (1) Acute gout Assessment & Plan: Patient with acute gout to bilateral knees, s/p right knee aspiration -Cultures x 3 finalized negative for growth -no acute orthopedic intervention needed -medical management of gout -PT/OT -orthopedically stable for d/c to home -follow up in office in 2 weeks as needed -d/w Dr. Dorado who agrees with above Status: Acute
[2019-01-08 15:51] VITALS: PULSE 61; O2SAT 96
--- NOTE | 2019-01-08 16:19 | PN ---
DATE: 01/08/2019 SUBJECTIVE: The patient denies any chest pain or shortness of breath. PHYSICAL EXAMINATION: VITAL SIGNS: Blood pressure 157/89, heart rate 67, temperature 98.4, respirations 20. HEENT: Normocephalic. CHEST: Clear. HEART: S1, S2, regular. EXTREMITIES: No edema. LABORATORY DATA: Today's hemoglobin and hematocrit 15 and 38.3. White count and platelet count are within normal limits. Today's SMA-7 was within normal limits except for chloride of 108. Blood cultures are negative after five days, and final culture report of synovial fluid, no growth. ASSESSMENT: 1. Coronary artery disease of the left anterior descending artery, not amenable for intervention. 2. Chronic atrial fibrillation. 3. Status post dual-chamber pacemaker placement. 4. Gouty arthritis. RECOMMENDATIONS: The patient can be discharged from the cardiac point on aspirin 81 mg once a day, Eliquis 2.5 mg twice a day, hydrochlorothiazide 25 mg daily, amlodipine can be increased to 10 mg once a day, Tenormin will be maintained at 12.5 mg once a day, and Zestril 20 mg once a day. Case was discussed with MICHAELLE. Valeriano Mitchell MD
== END 2019-01-08 14:51 | disposition home or self-care (01) | DRG 554 ==
LOC: H.ER 07:59 → H.ERHOLD 14:38 → H.MEDSURG1 22:30
PROVIDERS: ADMIT Internal Medicine; ATTEND Internal Medicine
PROC: 0S9C3ZX Drainage of Right Knee Joint, Percutaneous Approach, Diagnostic (ICD-10-PCS; principal; 2019-01-04)
DX: M10.9 Gout, unspecified (principal); M17.0 Bilateral primary osteoarthritis of knee; M25.461 Effusion, right knee; I48.2 Chronic atrial fibrillation; Z91.14 Patient's other noncompliance with medication regimen; Z95.0 Presence of cardiac pacemaker; Z79.82 Long term (current) use of aspirin; F17.210 Nicotine dependence, cigarettes, uncomplicated; I11.0 Hypertensive heart disease with heart failure; I50.9 Heart failure, unspecified; J44.9 Chronic obstructive pulmonary disease, unspecified; I25.10 Atherosclerotic heart disease of native coronary artery without angina pectoris; Z98.61 Coronary angioplasty status; E83.51 Hypocalcemia; E87.6 Hypokalemia